=== PATIENT | female | born 1940 | race Caucasian/White ===

== ENCOUNTER → 2020-02-28 10:14 | Outpatient (BNVA) | payer MEDICARE, OTHER, SELFPAY | PROVIDERS: PCP Internal Medicine; Visit Provider Internal Medicine | DX: J30.9 Allergic rhinitis, unspecified (principal); J44.9 Chronic obstructive pulmonary disease, unspecified | CPT/HCPCS: 99212 ==

== ENCOUNTER 2020-04-08 05:59 | Outpatient (REF) | payer MEDICARE, OTHER, SELFPAY ==
[2020-04-08 07:09] LABS: MANUAL DIFF FLAG NO
[2020-04-08 07:14] LABS: Basophils Absolute Auto 0.1 X10*3/uL (0.0-0.2); Basophils Percent Auto 0.7 % (0-2); Eosinophils Absolute Auto 0.4 X10*3/uL (0.0-0.4); Eosinophils Percent Auto 5.1 % (0-4); Hematocrit 38.2 % (37-47); Hemoglobin 12.2 g/dl (12.0-16.0); Imm Gran Abs Auto 0.06 X10*3/uL (0.00-0.03); Imm Gran Pct Auto 0.8 % (0.0-0.4); Lymphocytes Absolute Auto 2.6 X10*3/uL (1.2-4.9); Lymphocytes Percent Auto 33.6 % (20-40); Mean Corpuscular HGB Conc 31.9 g/dl (31.0-35.0); Mean Corpuscular Hemoglobin 31.1 pg (27.0-33.0); Mean Corpuscular Volume 97.4 fL (80-98); Monocytes Absolute Auto 0.6 X10*3/uL (0.1-1.2); Monocytes Percent Auto 7.7 % (2-11); Neutrophils Percent Auto 52.1 % (45-73); Platelet Count 304 X10*3/uL (160-400); Red Blood Count 3.92 X10*6/uL (4.20-5.50); White Blood Count 7.7 X10*3/uL (4.8-10.8)
[2020-04-08 07:21] LABS: Estimated Average Glucose 114 mg/dL; Hemoglobin A1c % 5.6 %
[2020-04-08 07:36] LABS: Alanine Aminotransferase 20 U/L (0-31); Anion Gap 14 (12-20); Aspartate Amino Transferase 16 U/L (5-31); Blood Urea Nitrogen 24 mg/dL (9-16); Calcium 9.5 mg/dL (8.4-10.2); Carbon Dioxide 26 mmol/L (22-29); Chloride 104 mmol/L (96-108); Cholesterol 177 mg/dL; Estimated Glomerular Filt Rate 57; Glucose Fasting 106 mg/dL (60-99); HDL Cholesterol 75 mg/dL; LDL Cholesterol Calculated 82 mg/dl; Potassium 5.2 mmol/l (3.3-5.1); Sodium 139 mmol/L (135-145); Triglycerides 103 mg/dL
[2020-04-08 07:58] LABS: Free T4 (Free Thyroxine) 1.09 ng/dL (0.71-1.85); Thyroid Stimulating Hormone 1.18 uIU/mL (0.32-4.0); Vitamin D 25-OH Total 44.7 ng/mL (>30)
[2020-04-08 08:03] LABS: Creatinine Urine 69.86 mg/dL; Microalbum/Creatinine Ratio Ur 11.4 ug/mg cr
== END 2020-04-08 06:00 | disposition home or self-care (01) ==
LOC: HO.LAB 05:59
PROVIDERS: Visit Provider Internal Medicine
DX: I10 Essential (primary) hypertension (principal); E78.5 Hyperlipidemia, unspecified; E11.9 Type 2 diabetes mellitus without complications; E66.09 Other obesity due to excess calories; Z78.0 Asymptomatic menopausal state
CPT/HCPCS: 36415; 80048; 80061; 82043; 82306; 83036; 84439; 84443; 84450; 84460; 85025

== ENCOUNTER 2020-06-14 08:20 | Outpatient (REF) | payer MEDICARE, OTHER, SELFPAY ==
--- NOTE | ~2020-06-14 | MM_ITS ---
EXAMINATION: BONE DENSITOMETRY CLINICAL INDICATION: Menopause. COMPARISON: Previous BD dated 02/15/2018 and baseline BD dated 08/24/2007. TECHNIQUE: Using a [employer]kStart DXA System (software version: 13.1) manufactured by [employer], dual-energy x-ray absorptiometry was performed of the lumbar spine and left hip. The images are of good technical quality. Summary results are attached. FINDINGS: AP SPINE L1-L4: Current: BMD 1.155 g/cm2, Z-score 1.1, T-score -0.2, normal, 0.8% increase from previous, 6.0% increase from baseline (<5% change is not significant). Prior: BMD 1.146 g/cm2. Baseline: BMD 1.090 g/cm2. LEFT FEMUR, NECK: Current: BMD 0.878 g/cm2, Z-score 0.6, T-score -1.2, osteopenia. Prior: BMD 0.906 g/cm2. Baseline: BMD 0.909 g/cm2. LEFT FEMUR, TOTAL: Current: BMD 1.046 g/cm2, Z-score 1.9, T-score 0.3, normal, 1.4% decrease from previous, 3.0% decrease from baseline (<5% change is not significant). Prior: BMD 1.061 g/cm2. Baseline: BMD 1.078 g/cm2. IDENTIFIED RISK FACTORS: Glucocorticoids (chronic), renal, menopause. HISTORY OF FRACTURE: None listed. MEDICATIONS: Vitamin D. MM/XR DEXA axial skeleton IMPRESSION: 1. DIAGNOSIS: Osteopenia based on the lowest T-score value of -1.2 in the femoral neck applying World Health Organization criteria. 2. 10-YEAR FRACTURE RISK PREDICTION, FRAX: Major osteoporotic fracture (clinical spine, forearm, hip or shoulder) 17.0%. Hip fracture 3.8%. 3. Treatment Recommendations: NOF guidelines recommend consideration for treatment in postmenopausal women and men age 50 and older presenting with the following: -A hip or vertebral (clinical or morphometric) fracture. -T-score less than or equal to -2.5 at the femoral neck or spine after appropriate evaluation to exclude secondary causes. -Low bone mass at the hip or spine and a 10-year fracture probability by FRAX of greater than or equal to 3% for hip fracture or greater than or equal to 20% for major osteoporotic fracture based on the [place] adapted WHO algorithm. 4. Other Recommendations: All treatment decisions require clinical judgment and consideration of individual patient factors, including patient preferences, comorbidities, previous drug use, risk factors not captured in the FRAX model (e.g. frailty, falls, vitamin D deficiency, increased bone turnover, interval significant decline in bone density) and possible under or overestimation of fracture risk by FRAX. Additional medical evaluation for secondary cause of low bone mineral density may be appropriate. FUTURE SCAN RECOMMENDATION: People with diagnosed cases of osteoporosis or at high risk for fracture should have regular bone mineral density tests. For patients eligible for Medicare, routine testing is allowed once every 2 years. The testing frequency can be increased to one year for patients who have rapidly progressing disease, those who are receiving or discontinuing medical therapy to restore bone mass, or have additional risk factors.
--- NOTE | ~2020-06-14 | MM_ITS ---
EXAMINATION: MM SCREENING DIGITAL BREAST TOMOSYNTHESIS, BILATERAL CLINICAL INFORMATION: Screening. Asymptomatic. The lifetime risk of breast cancer based on the Tyrer-Cuzick Model is 6.0%. COMPARISON: Mammography: March 28, 2019 and studies dating back to September 21, 2011 TECHNIQUE: Digital breast tomosynthesis is performed in both the craniocaudal and mediolateral oblique views along with computer-aided detection (CAD). Synthesized 2D images are generated from the tomosynthesis. FINDINGS: The breasts are heterogeneously dense, which may obscure small masses (ACR BI-RADS breast composition Category c). There are no significant masses, abnormal calcifications, or other abnormalities. MM/MM tomosynthesis screening BI IMPRESSION: There are no significant changes from prior study. ASSESSMENT: BI-RADS 1: Negative RECOMMENDATION: Routine annual mammography screening. This patient's information was entered into a reminder system with a target due date for their next mammogram.
== END 2020-06-14 08:21 | disposition home or self-care (01) ==
LOC: HO.MAMMO 08:20
PROVIDERS: PCP Internal Medicine; Visit Provider Internal Medicine
DX: Z13.820 Encounter for screening for osteoporosis (principal); Z78.0 Asymptomatic menopausal state; Z12.31 Encounter for screening mammogram for malignant neoplasm of breast
CPT/HCPCS: 77063; 77067; 77080

== ENCOUNTER → 2020-08-29 10:19 | Outpatient (BNVA) | payer MEDICARE, OTHER, SELFPAY | PROVIDERS: PCP Internal Medicine; Visit Provider Internal Medicine | DX: J44.9 Chronic obstructive pulmonary disease, unspecified (principal); J30.9 Allergic rhinitis, unspecified | CPT/HCPCS: 99212 ==

== ENCOUNTER 2021-02-19 06:53 | Outpatient (REF) | payer MEDICARE, OTHER, SELFPAY ==
[2021-02-19 07:31] LABS: Estimated Average Glucose 117 mg/dL; Hemoglobin A1c % 5.7 %
[2021-02-19 07:45] LABS: Alanine Aminotransferase 20 U/L (0-31); Anion Gap 15 (12-20); Aspartate Amino Transferase 19 U/L (5-31); Blood Urea Nitrogen 24 mg/dL (9-16); Calcium 10.2 mg/dL (8.4-10.2); Carbon Dioxide 26 mmol/L (22-29); Chloride 107 mmol/L (96-108); Cholesterol 177 mg/dL; Estimated Glomerular Filt Rate 47; Glucose Fasting 108 mg/dL (60-99); HDL Cholesterol 75 mg/dL; LDL Cholesterol Calculated 86 mg/dl; Potassium 5.6 mmol/L (3.3-5.1); Sodium 142 mmol/L (135-145); Triglycerides 82 mg/dL
[2021-02-19 07:51] LABS: Hemoglobin A1C 151.2026 umol/L
[2021-02-19 08:06] LABS: Free T4 (Free Thyroxine) 1.26 ng/dL (0.71-1.85); Thyroid Stimulating Hormone 0.72 uIU/mL (0.32-4.0); Vitamin D 25-OH Total 47.7 ng/mL (>30)
== END 2021-02-19 06:54 | disposition home or self-care (01) ==
LOC: HO.LAB 06:53
PROVIDERS: PCP Internal Medicine; Visit Provider Internal Medicine
DX: E03.9 Hypothyroidism, unspecified (principal); E11.9 Type 2 diabetes mellitus without complications; E78.5 Hyperlipidemia, unspecified; I10 Essential (primary) hypertension; Z78.0 Asymptomatic menopausal state
CPT/HCPCS: 36415; 80048; 80061; 82306; 83036; 84439; 84443; 84450; 84460

== ENCOUNTER → 2021-02-27 09:28 | Outpatient (BNVA) | payer MEDICARE, OTHER, SELFPAY | PROVIDERS: PCP Internal Medicine; Visit Provider Internal Medicine | DX: J44.9 Chronic obstructive pulmonary disease, unspecified (principal); J30.9 Allergic rhinitis, unspecified | CPT/HCPCS: 99212 ==

== ENCOUNTER 2021-04-04 09:55 | Outpatient (REF) | payer MEDICARE, OTHER, SELFPAY ==
--- NOTE | 2021-04-04 17:06 | PFT_ITS ---
INDICATION: COPD. SPIROMETRY: FEV1 to FVC 62% with an FEV1 of 1.22 L which is 70% predicted and FVC 1.95 L, which is 82% predicted. No significant response to bronchodilators noted. Maximum voluntary ventilation 62% predicted. LUNG VOLUMES: Total lung capacity 86% predicted with an expiratory reserve volume of 13% predicted. DIFFUSION CAPACITY: DLCO 55% predicted. COMPARISONS: None available. INTERPRETATION: There is an obstructive ventilatory defect consistent with moderate COPD. The patient did not have a significant response to bronchodilators noted. There is a mild decrease in maximum voluntary ventilation secondary to likely deconditioning. Lung volumes are low normal with a decrease in the expiratory reserve volume secondary to an elevated BMI. The patient does have a moderate diffusion impairment likely secondary to emphysema and other parenchymal lung conditions or pulmonary vascular conditions should be considered. Clinical correlation warranted. MD SRIDHAR Yi/NASEEM / [id number]
== END 2021-04-04 09:56 | disposition home or self-care (01) ==
LOC: HO.RESP 09:55
PROVIDERS: PCP Internal Medicine; Visit Provider Internal Medicine
DX: J44.9 Chronic obstructive pulmonary disease, unspecified (principal); J30.9 Allergic rhinitis, unspecified
CPT/HCPCS: 94060; 94727; 94729

== ENCOUNTER 2021-06-13 14:00 | Outpatient (RCR) | payer MEDICARE, OTHER, SELFPAY ==
[2021-04-02 13:06] VITALS: BP 139/65; PULSE 65
--- NOTE | 2021-04-02 14:24 | MHC.PT.EP ---
[facility] [place] Office [place] Office [place] Office [address] [phone] F: [phone] F: [phone] F: [phone] F: [phone] Physical Therapy Plan of Care Date of Evaluation: Date of Surgery: NA Diagnosis: Unsteadiness of feet Assessment: Roxane is a 80 year old female who is referred to PT for unsteadiness on feet . She report of feeling extremely unsteady while going down stairs due to difficulty perceiving the depth of the stairs. Pt reports of having this for over 10 years however it has gotten worse over the last year following a fall on her buttock while she was going down to the cellar. On PT examination she presented TTP over R SI, constant pain in R SI which gets worse with prolonged sitting, standing and walking, decreased hip muscle strength, altered pelvic symmetry and convergence. Due to these impairments she has difficulty with negotiating stairs and maintaining static postures. She would benefit from skilled PT to address the aforementioned impairments and improve tolerance to functional activities. Frequency and Duration: The patient will be seen 1/week for 5 weeks Short Term Goals: 1. Pt will have 50% decrease in pain which will enable her to sit, and stand for more than 30 minutes in 2 weeks. 2. Pt will be able to move trunk through all planes of motion without pain which will help her perform all ADLS without pain in 3 weeks Hr Internship Goals: 1. Pt will demonstrate an improvement in convergence distance by 10cm so as to enable pt go down stairs without fear of LOB in 5 weeks. 2. Pt will be independent with HEP for symptom management and maintenance following d/c in 5 weeks Treatment Plan: Modalities to reduce pain, spasms and effusion. Manual therapy to restore motion and function. Therapeutic exercise to improve strength and flexibility. Neuromuscular re-education for posture and balance. Therapeutic activities to return to functional activities of daily living. Electronically signed by: Melissa Chand PT DPT Please sign and return to therapist. Thank you for your referral.
--- NOTE | 2021-06-13 15:02 | MHC.PT.DC ---
[facility] [place] Office [place] Office [place] Office [address] [place] [address] [phone] F: [phone] F: [phone] F: [phone] F: [phone] Physical Therapy Discharge Report Diagnosis: Unsteadiness of feet Date of Surgery: NA Date of Evaluation: 04/02/21 Date of Discharge: 06/13/21 Treatments to Date: 8 Cancellations to Date: 1 No Shows to Date: 0 Discharge Status: Achieved Goals Improved Function Independent with HEP Discharge Summary: Roxane is completed 8 PT visits and has improved significantly. She is independent with HEPs. She is therefore being d/c from PT today. Electronically signed by: Melissa Chand PT DPT Please sign and return to therapist. Thank you for your referral.
== END 2021-06-13 15:03 | disposition home or self-care (01) ==
LOC: HO.PT 14:00
PROVIDERS: PCP Internal Medicine; Visit Provider Internal Medicine
DX: R26.81 Unsteadiness on feet (principal)
CPT/HCPCS: 97110; 97112; 97140; 97161; 97530

== ENCOUNTER 2021-06-16 10:26 | Outpatient (REF) | payer MEDICARE, OTHER, SELFPAY ==
--- NOTE | ~2021-06-16 | MM_ITS ---
EXAMINATION: MM SCREENING DIGITAL BREAST TOMOSYNTHESIS, BILATERAL CLINICAL INFORMATION: Screening. Asymptomatic. Family history breast cancer, daughter. The lifetime risk of breast cancer based on the Tyrer-Cuzick Model is 5%. COMPARISON: Mammography: 06/14/2020, 03/28/2019, 02/15/2018 TECHNIQUE: Digital breast tomosynthesis is performed in both the craniocaudal and mediolateral oblique views along with computer-aided detection (CAD). Synthesized 2D images are generated from the tomosynthesis. FINDINGS: There are scattered areas of fibroglandular density (ACR BI-RADS breast composition Category b). There is fine fibronodular parenchymal pattern with some minor asymmetries similar to prior studies. There is no developing density or interval mass or architectural abnormality. Regional ductal secretory and round calcifications medial right breast are again noted. The axilla and skin contours are unremarkable. No significant changes. MM/MM tomosynthesis screening BI IMPRESSION: No mammographic evidence of malignancy. ASSESSMENT: BI-RADS 2: Benign RECOMMENDATION: Routine annual mammography screening. This patient's information was entered into a reminder system with a target due date for their next mammogram.
== END 2021-06-16 10:27 | disposition home or self-care (01) ==
LOC: HO.MAMMO 10:26
PROVIDERS: Visit Provider Internal Medicine
DX: Z12.31 Encounter for screening mammogram for malignant neoplasm of breast (principal)
CPT/HCPCS: 77063; 77067

== ENCOUNTER 2021-06-24 06:12 | Outpatient (REF) | payer MEDICARE, OTHER, SELFPAY ==
[2021-06-24 08:04] LABS: Estimated Average Glucose 111 mg/dL; Hemoglobin A1c % 5.5 %
[2021-06-24 08:06] LABS: Alanine Aminotransferase 17 U/L (0-31); Anion Gap 12 (12-20); Aspartate Amino Transferase 15 U/L (5-31); Blood Urea Nitrogen 26 mg/dL (9-16); Carbon Dioxide 24 mmol/L (22-29); Chloride 110 mmol/L (96-108); Cholesterol 154 mg/dL; Estimated Glomerular Filt Rate 55; Glucose Fasting 99 mg/dL (60-99); HDL Cholesterol 55 mg/dL; LDL Cholesterol Calculated 82 mg/dl; Potassium 5.2 mmol/L (3.3-5.1); Sodium 141 mmol/L (135-145); Triglycerides 85 mg/dL
[2021-06-24 08:28] LABS: Free T4 (Free Thyroxine) 1.22 ng/dL (0.71-1.85); Thyroid Stimulating Hormone 0.53 uIU/mL (0.32-4.0); Vitamin D 25-OH Total 43.6 ng/mL (>30)
[2021-06-24 08:48] LABS: Creatinine Urine 63.14 mg/dL; Microalbum/Creatinine Ratio Ur 7.9 ug/mg cr
== END 2021-06-24 06:13 | disposition home or self-care (01) ==
LOC: HO.LAB 06:12
PROVIDERS: PCP Internal Medicine; Visit Provider Internal Medicine
DX: E78.5 Hyperlipidemia, unspecified (principal); E03.9 Hypothyroidism, unspecified; I10 Essential (primary) hypertension; E11.9 Type 2 diabetes mellitus without complications
CPT/HCPCS: 36415; 80048; 80061; 82043; 82306; 83036; 84439; 84443; 84450; 84460

== ENCOUNTER → 2021-06-26 09:31 | Outpatient (BNVA) | payer MEDICARE, OTHER, SELFPAY | PROVIDERS: PCP Internal Medicine; Visit Provider Internal Medicine | DX: J44.9 Chronic obstructive pulmonary disease, unspecified (principal); I10 Essential (primary) hypertension; E11.9 Type 2 diabetes mellitus without complications; E03.9 Hypothyroidism, unspecified; L30.4 Erythema intertrigo; T78.49XA Other allergy, initial encounter; Z88.3 Allergy status to other anti-infective agents; Z91.030 Bee allergy status; Z79.84 Long term (current) use of oral hypoglycemic drugs; Z79.899 Other long term (current) drug therapy | CPT/HCPCS: 99212 ==

== ENCOUNTER → 2021-10-08 08:53 | Outpatient (BNVA) | payer MEDICARE, OTHER, SELFPAY | PROVIDERS: PCP Internal Medicine; Visit Provider Internal Medicine | DX: J30.9 Allergic rhinitis, unspecified (principal); J44.9 Chronic obstructive pulmonary disease, unspecified; I10 Essential (primary) hypertension; E11.9 Type 2 diabetes mellitus without complications; Z79.899 Other long term (current) drug therapy | CPT/HCPCS: 99212 ==

== ENCOUNTER 2021-10-13 06:27 | Day surgery (SDC) | payer MEDICARE, OTHER, SELFPAY ==
[2021-10-06 16:02] VITALS: BMI 31.4
--- NOTE | 2021-10-09 10:12 | MHC.SHP ---
Pre-Procedural Eval Section A Date of Service: 10/09/21 The patient is an INPATIENT: No Changes since office visit: No Cold of Flu in the past 2 weeks, No New Medical Problems, No Changes in Medication and No Patient answered all questions The History & Physical has been completed within 30 days and I have reviewed it.: Yes Section B Chief Complaint: cataract Allergies: Allergies Allergy/AdvReac Type Severity Reaction Status Date / Time levofloxacin [Levaquin] AdvReac Unknown achilles Verified 10/08/21 09:19 tendon issue bee stings Allergy Unknown anaphylaxis Uncoded 10/08/21 09:19 stainless steel Allergy Unknown severe Uncoded 10/08/21 09:19 Derm reaction chlorine AdvReac Difficulty Uncoded 10/08/21 09:19 Breathing Plan Diagnosis/Plan: Unchanged I have reviewed the history and physical and performed a pertinent physical examination on my patient. No changes have occurred unless specified.
--- NOTE | 2021-10-10 09:02 | P.CONAN_ITS ---
Documented by User: Keila Johnson NP 10/10/21 09:03 HPI - Anesthesia Eval Consult details Narrative: 81yo F for Left Cataract Extraction IOL Insertion PCP cleared No prev cataract on record [facility] Active Problems Active Problems: All Active Problems (Updated 06/26/21 @ 10:11 by Anam Gibson MD) Tubular adenoma of colon (Acute) Gait instability (Acute) Pruritic intertrigo (Acute) Dyslipidemia (Acute) Acquired hypothyroidism (Acute) Essential hypertension (Acute) Type 2 diabetes mellitus without complication, without long-term current use of insulin (Acute) COPD (chronic obstructive pulmonary disease) (Acute) Allergic rhinitis (Acute) Past Medical History Medical History Acquired hypothyroidism Allergic rhinitis COPD (chronic obstructive pulmonary disease) Dyslipidemia Essential hypertension Gait instability Pruritic intertrigo Tubular adenoma of colon Type 2 diabetes mellitus without complication, without long-term current use of insulin Family History Family History Father Cancer of prostate Mother COPD (chronic obstructive pulmonary disease) Polio Smoker Daughter Breast cancer Paternal Grandmother No problems noted. Brother No problems noted. Sister No problems noted. Sister No problems noted. Sister No problems noted. Son No problems noted. Daughter No problems noted. Surgical History Surgical History (Updated 10/06/21 @ 16:01 by Christie Rey RN) History of basal cell carcinoma excision History of colonoscopy Social History Social History Housing: House Are you a primary life care planner to a significant other at home: No Do you presently have visiting nurse or other home services: No Alcohol intake: current Patient Tobacco Use Status: Never used Tobacco e-Cigarette/Vaping Use: Never Used Use of substances other than those prescribed or required for medical reasons: No Have you been hit, kicked, punched, or otherwise hurt by someone within the past year? If so, by whom?: No Are you DNR?: No Advance Directives: No Advance Directives Information Provided: Yes Advance Directives on File: No Recently lost weight without trying: No Eating poorly because of decreased appetite: No Nutrition Risks: No Nutritional Risk Patient : No : No service: No Current occupational status: retired Cognitive needs: No Hearing needs: No Vision needs: No Meds Allergies Allergy/AdvReac Type Severity Reaction Status Date / Time levofloxacin [Levaquin] AdvReac Unknown achilles Verified 10/08/21 09:19 tendon issue bee stings Allergy Unknown anaphylaxis Uncoded 10/08/21 09:19 stainless steel Allergy Unknown severe Uncoded 10/08/21 09:19 Derm reaction chlorine AdvReac Difficulty Uncoded 10/08/21 09:19 Breathing Home Medications Medication Instructions Recorded Confirmed Last Taken Type flaxseed oil 1,000 mg capsule 1,000 mg PO BID 02/28/20 10/06/21 Unknown History omega 8-uvb-fdh-fish oil 300 1 cap PO DAILY 02/28/20 10/06/21 10/12/21 History mg-1,000 mg capsule (Fish Oil) psyllium husk 3.4 gram/5.4 gram 1 tbsp PO DAILY 02/28/20 10/06/21 Unknown History oral powder (Metamucil) cholecalciferol (vitamin D3) 50 50 mcg PO DAILY 04/15/20 10/06/21 Unknown History mcg (2,000 unit) capsule glucosamine sulfate 1,000 mg tablet 1,000 mg PO BID 04/15/20 10/06/21 Unknown History biotin 800 mcg tablet 800 mcg PO DAILY 02/27/21 10/06/21 Unknown History cetirizine 10 mg tablet (Zyrtec) 10 mg PO DAILY 02/27/21 10/06/21 Unknown History nystatin 100,000 unit/mL oral 1 ml PO TID PRN thrush 02/27/21 10/06/21 Unknown History suspension nystatin-triamcinolone 100,000 1 appl topical DAILY PRN Rash 02/27/21 10/06/21 Unknown History unit/g-0.1 % topical cream aspirin 325 mg tablet 325 mg PO DAILY 10/06/21 10/06/21 10/13/21 History irbesartan 150 mg tablet 150 mg PO BEDTIME 10/06/21 10/06/21 Unknown History Exam Exam Date and Time: October 10, 2021 09 Height,Weight and Vital Signs: Height 5 ft 1.5 in Weight 76.839 kg Pertinent Lab Results Pertinent Lab Results: Laboratory Tests 06/24/21 06:38 Sodium 141 Potassium 5.2 H Chloride 110 H Carbon Dioxide 24 BUN 26 H Creatinine 0.98 Assessment and Plan Assessment Anesthesia Assessment: Chart Reviewed Documented by User: Heidi Colin MD 10/13/21 08:52 [facility] Past Medical History Medical History Acquired hypothyroidism Allergic rhinitis COPD (chronic obstructive pulmonary disease) Dyslipidemia Essential hypertension Gait instability Pruritic intertrigo Tubular adenoma of colon Type 2 diabetes mellitus without complication, without long-term current use of insulin Family History Family History Father Cancer of prostate Mother COPD (chronic obstructive pulmonary disease) Polio Smoker Daughter Breast cancer Paternal Grandmother No problems noted. Brother No problems noted. Sister No problems noted. Sister No problems noted. Sister No problems noted. Son No problems noted. Daughter No problems noted. Family history of problems with anesthesia: No Surgical History Surgical History (Updated 10/06/21 @ 16:01 by Christie Rey, GISELE) History of basal cell carcinoma excision History of colonoscopy History of Problems with Anesthesia: No Social History Social History Housing: House Are you a primary life care planner to a significant other at home: No Do you presently have visiting nurse or other home services: No Alcohol intake: current Patient Tobacco Use Status: Never used Tobacco e-Cigarette/Vaping Use: Never Used Use of substances other than those prescribed or required for medical reasons: No Have you been hit, kicked, punched, or otherwise hurt by someone within the past year? If so, by whom?: No Are you DNR?: No Advance Directives: No Advance Directives Information Provided: Yes Advance Directives on File: No Recently lost weight without trying: No Eating poorly because of decreased appetite: No Nutrition Risks: No Nutritional Risk Patient : No : No service: No Current occupational status: retired Cognitive needs: No Hearing needs: No Vision needs: No Meds Allergies Allergy/AdvReac Type Severity Reaction Status Date / Time levofloxacin [Levaquin] AdvReac Unknown achilles Verified 10/08/21 09:19 tendon issue bee stings Allergy Unknown anaphylaxis Uncoded 10/08/21 09:19 stainless steel Allergy Unknown severe Uncoded 10/08/21 09:19 Derm reaction chlorine AdvReac Difficulty Uncoded 10/08/21 09:19 Breathing Home Medications Medication Instructions Recorded Confirmed Last Taken Type flaxseed oil 1,000 mg capsule 1,000 mg PO BID 02/28/20 10/06/21 Unknown History omega 7-iww-fef-fish oil 300 1 cap PO DAILY 02/28/20 10/06/21 10/12/21 History mg-1,000 mg capsule (Fish Oil) psyllium husk 3.4 gram/5.4 gram 1 tbsp PO DAILY 02/28/20 10/06/21 Unknown History oral powder (Metamucil) cholecalciferol (vitamin D3) 50 50 mcg PO DAILY 04/15/20 10/06/21 Unknown History mcg (2,000 unit) capsule glucosamine sulfate 1,000 mg tablet 1,000 mg PO BID 04/15/20 10/06/21 Unknown History biotin 800 mcg tablet 800 mcg PO DAILY 02/27/21 10/06/21 Unknown History cetirizine 10 mg tablet (Zyrtec) 10 mg PO DAILY 02/27/21 10/06/21 Unknown History nystatin 100,000 unit/mL oral 1 ml PO TID PRN thrush 02/27/21 10/06/21 Unknown History suspension nystatin-triamcinolone 100,000 1 appl topical DAILY PRN Rash 02/27/21 10/06/21 Unknown History unit/g-0.1 % topical cream aspirin 325 mg tablet 325 mg PO DAILY 10/06/21 10/06/21 10/13/21 History irbesartan 150 mg tablet 150 mg PO BEDTIME 10/06/21 10/06/21 Unknown History Exam Height,Weight and Vital Signs: Height 5 ft 1.5 in Weight 76.839 kg Vital Signs Temp Pulse Resp BP Pulse Ox O2 Del Method 97 F 58 19 167/64 H 94 10/13/21 07:11 10/13/21 07:11 10/13/21 07:11 10/13/21 07:11 10/13/21 07:11 10/13/21 07:11 Pertinent Lab Results Pertinent Lab Results: Laboratory Tests 06/24/21 06:38 Sodium 141 Potassium 5.2 H Chloride 110 H Carbon Dioxide 24 BUN 26 H Creatinine 0.98 Lab Results 10/13/21 Range/Units 06:56 POC Glucose 100 (60-115) mg/dL Airway Mallampati Class: III (Small mouth opening, overlapping teeth) TM Dist: >3cm Neck ROM: Full Partial: Lower Heart: RRR Lungs: CTAB Assessment and Plan Assessment Anesthesia Assessment: Anesthesia Plan Discussed Final Anesthetic Review Family History of Problems with Anesthesia: No History of Problems with Anesthesia: No NPO: Yes ASA Class: III Final Preanesthetic Review: No Changes in Pt Med Stat, Meds/Allgs Chart Reviewed, Consent Obtained/Reviewed and Anes Risks/Benef Reviewed Patient Risk: Intermediate Procedure Risk: Low Assessment/Block/Sedation in SS: Assess/Block/Sedation-SS Anesthetic Plan Anesthetic Plan: MAC: Disposition: Standard PACU
[2021-10-13 07:00] LABS: Glucose, Whole Blood 100 mg/dL (60-115)
[2021-10-13 07:11] VITALS: BP 167/64; PULSE 58; RESP 19; TEMP 36.1; O2SAT 94
[2021-10-13] MEDS: Tetracaine HCl/PF 0.5% Oph Sol 4 ML DROPS 1 DROP EYE-LEFT (07:14)
[2021-10-13] MEDS: Lactated Ringers 500 ML 50 ML IV (07:14)
[2021-10-13] MEDS: Tropicamide 1 % Ophth Sol 3 ML BTL 1 DROP EYE-LEFT ×3 (07:14→07:17)
[2021-10-13] MEDS: Phenylephrine HCL 2.5% Oph SoL 2 ML BOTTLE 1 DROP EYE-LEFT ×3 (07:15→07:17)
[2021-10-13] MEDS: Cyclopentolate 1 % Ophth Sol 2 ML DRPBTL 1 DROP EYE-LEFT ×3 (07:15→07:16)
--- NOTE | 2021-10-13 08:19 | HO.PNOPHT ---
Ophthalmology Procedure Procedure Date of Service: 10/13/21 Ophthalmology Viscoelastic: Healconrado Skinnert Dual Pack Pro Ophthalmology Lenses: TECJUNIOR [id number] (22) Procedure Notes: PREOPERATIVE DIAGNOSIS: Decreased visual acuity left eye secondary to cataract POSTOPERATIVE DIAGNOSIS: Same PROCEDURE: Left cataract extraction with intraocular lens insertion SURGEON: Jaime Alberts M.D. ANESTHESIA: Topical/MAC ESTIMATED BLOOD LOSS: None COMPLICATIONS: None After obtaining informed consent, the patient was brought to the operation room suite and placed in the supine position. After adequate sedation per anesthesia, topical drops of Tetracaine were given to the left eye. The eye was then prepped and draped in the usual sterile fashion. The operating room microscope was then positioned over the operative eye and a lid speculum placed. A paracentesis was created. Viscoelastic was then instilled into the anterior chamber. A three plane incision was then created temporally, utilizing a 2.85 mm keratome. Capsulotomy forceps were then utilized to create a circular tear capsulotomy. Hydrodissection and hydrodelineation were carried out until adequate mobilization of the nucleus occurred. Phacoemulsification was then utilized to remove the dense central nucleus followed by removal of the cortical material utilizing the automated aspiration irrigation unit. Viscoat elastic was instilled into the posterior capsular bag followed by placement of a posterior chamber intraocular lens without difficulty. The residual Viscoat elastic was then removed utilizing the automated IA machine. The wound was check and found to be watertight. The patient tolerated the procedure well and the lid speculum was removed. Intracameral injection of Vigamox 0.1 mL followed by a subtenon injection of Kenalog-40 0.2 mL were administered. The patient will be seen in the a.m.
[2021-10-13 08:49] VITALS: BP 135/43; PULSE 59; RESP 16; TEMP 36.8; O2SAT 97
== END 2021-10-13 08:59 | disposition home or self-care (01) ==
PROVIDERS: PCP Internal Medicine; Visit Provider Ophthalmology
PROC: (CPT 66985; principal; 2021-10-13 08:20)
DX: H25.12 Age-related nuclear cataract, left eye (principal); H52.4 Presbyopia; E03.9 Hypothyroidism, unspecified; J44.9 Chronic obstructive pulmonary disease, unspecified; I10 Essential (primary) hypertension; E78.00 Pure hypercholesterolemia, unspecified; H35.033 Hypertensive retinopathy, bilateral; Z79.84 Long term (current) use of oral hypoglycemic drugs; Z79.51 Long term (current) use of inhaled steroids; Z79.82 Long term (current) use of aspirin; Z79.899 Other long term (current) drug therapy; Z88.1 Allergy status to other antibiotic agents; Z87.891 Personal history of nicotine dependence
CPT/HCPCS: 66984; 82947; J2250; J3010; J3300; V2632

== ENCOUNTER 2021-11-03 06:08 | Day surgery (SDC) | payer MEDICARE, OTHER, SELFPAY ==
[2021-10-06 16:06] VITALS: BMI 31.4
--- NOTE | 2021-10-31 12:54 | HO.ANESPROP2 ---
Documented by User: Keila Johnson NP 10/31/21 12:55 HPI - Anesthesia Eval Consult details Narrative: 81yo F for Right Cataract Extraction IOL Insertion PCP cleared Left eye 10/13/ with TIVA: Fent 50, Midaz 1 PMFSH Active Problems Active Problems: All Active Problems (Updated 06/26/21 @ 10:11 by Anam Gibson MD) Tubular adenoma of colon (Acute) Gait instability (Acute) Pruritic intertrigo (Acute) Dyslipidemia (Acute) Acquired hypothyroidism (Acute) Essential hypertension (Acute) Type 2 diabetes mellitus without complication, without long-term current use of insulin (Acute) COPD (chronic obstructive pulmonary disease) (Acute) Allergic rhinitis (Acute) Past Medical History Medical History Acquired hypothyroidism Allergic rhinitis COPD (chronic obstructive pulmonary disease) Dyslipidemia Essential hypertension Gait instability Pruritic intertrigo Tubular adenoma of colon Type 2 diabetes mellitus without complication, without long-term current use of insulin Family History Family History Father Cancer of prostate Mother COPD (chronic obstructive pulmonary disease) Polio Smoker Daughter Breast cancer Paternal Grandmother No problems noted. Brother No problems noted. Sister No problems noted. Sister No problems noted. Sister No problems noted. Son No problems noted. Daughter No problems noted. Family history of problems with anesthesia: No Surgical History Surgical History History of basal cell carcinoma excision History of colonoscopy Hx of right cataract extraction History of Problems with Anesthesia: No Social History Social History Housing: House Are you a primary pharmacist critical care to a significant other at home: No Do you presently have visiting nurse or other home services: No Alcohol intake: current Patient Tobacco Use Status: Never used Tobacco e-Cigarette/Vaping Use: Never Used Use of substances other than those prescribed or required for medical reasons: No Have you been hit, kicked, punched, or otherwise hurt by someone within the past year? If so, by whom?: No Are you DNR?: No Advance Directives: No Advance Directives Information Provided: Yes Advance Directives on File: No Recently lost weight without trying: No Eating poorly because of decreased appetite: No Nutrition Risks: No Nutritional Risk Patient : No : No service: No Current occupational status: retired Cognitive needs: No Hearing needs: No Vision needs: No Meds Allergies Allergy/AdvReac Type Severity Reaction Status Date / Time levofloxacin [Levaquin] AdvReac Unknown achilles Verified 10/08/21 09:19 tendon issue bee stings Allergy Unknown anaphylaxis Uncoded 10/08/21 09:19 stainless steel Allergy Unknown severe Uncoded 10/08/21 09:19 Derm reaction chlorine AdvReac Difficulty Uncoded 10/08/21 09:19 Breathing Home Medications Medication Instructions Recorded Confirmed Last Taken Type flaxseed oil 1,000 mg capsule 1,000 mg PO BID 02/28/20 10/06/21 Unknown History omega 5-ize-wvg-fish oil 300 1 cap PO DAILY 02/28/20 10/06/21 10/12/21 History mg-1,000 mg capsule (Fish Oil) psyllium husk 3.4 gram/5.4 gram 1 tbsp PO DAILY 02/28/20 10/06/21 Unknown History oral powder (Metamucil) cholecalciferol (vitamin D3) 50 50 mcg PO DAILY 04/15/20 10/06/21 Unknown History mcg (2,000 unit) capsule glucosamine sulfate 1,000 mg tablet 1,000 mg PO BID 04/15/20 10/06/21 Unknown History biotin 800 mcg tablet 800 mcg PO DAILY 02/27/21 10/06/21 Unknown History cetirizine 10 mg tablet (Zyrtec) 10 mg PO DAILY 02/27/21 10/06/21 Unknown History nystatin 100,000 unit/mL oral 1 ml PO TID PRN thrush 02/27/21 10/06/21 Unknown History suspension nystatin-triamcinolone 100,000 1 appl topical DAILY PRN Rash 02/27/21 10/06/21 Unknown History unit/g-0.1 % topical cream aspirin 325 mg tablet 325 mg PO DAILY 10/06/21 10/06/21 10/29/21 History irbesartan 150 mg tablet 150 mg PO BEDTIME 10/06/21 10/06/21 Unknown History Exam Exam Date and Time: October 31, 2021 1254 Height,Weight and Vital Signs: Height 5 ft 1.5 in Weight 76.839 kg Assessment and Plan Assessment Anesthesia Assessment: Chart Reviewed Final Anesthetic Review Family History of Problems with Anesthesia: No History of Problems with Anesthesia: No Documented by User: Pooja Ovalles MD 11/03/21 08:24 [facility] Past Medical History Medical History Acquired hypothyroidism Allergic rhinitis COPD (chronic obstructive pulmonary disease) Dyslipidemia Essential hypertension Gait instability Pruritic intertrigo Tubular adenoma of colon Type 2 diabetes mellitus without complication, without long-term current use of insulin Functional capacity: independent ambulation Patient : No Family History Family History Father Cancer of prostate Mother COPD (chronic obstructive pulmonary disease) Polio Smoker Daughter Breast cancer Paternal Grandmother No problems noted. Brother No problems noted. Sister No problems noted. Sister No problems noted. Sister No problems noted. Son No problems noted. Daughter No problems noted. Surgical History Surgical History History of basal cell carcinoma excision History of colonoscopy Hx of right cataract extraction Social History Social History Housing: House Are you a primary pharmacist critical care to a significant other at home: No Do you presently have visiting nurse or other home services: No Alcohol intake: current Patient Tobacco Use Status: Never used Tobacco e-Cigarette/Vaping Use: Never Used Use of substances other than those prescribed or required for medical reasons: No Have you been hit, kicked, punched, or otherwise hurt by someone within the past year? If so, by whom?: No Are you DNR?: No Advance Directives: No Advance Directives Information Provided: Yes Advance Directives on File: No Recently lost weight without trying: No Eating poorly because of decreased appetite: No Nutrition Risks: No Nutritional Risk Patient : No : No service: No Current occupational status: retired Cognitive needs: No Hearing needs: No Vision needs: No Meds Allergies Allergy/AdvReac Type Severity Reaction Status Date / Time levofloxacin [Levaquin] AdvReac Unknown achilles Verified 10/08/21 09:19 tendon issue bee stings Allergy Unknown anaphylaxis Uncoded 10/08/21 09:19 stainless steel Allergy Unknown severe Uncoded 10/08/21 09:19 Derm reaction chlorine AdvReac Difficulty Uncoded 10/08/21 09:19 Breathing Home Medications Medication Instructions Recorded Confirmed Last Taken Type flaxseed oil 1,000 mg capsule 1,000 mg PO BID 02/28/20 10/06/21 Unknown History omega 7-zts-iau-fish oil 300 1 cap PO DAILY 02/28/20 10/06/21 10/12/21 History mg-1,000 mg capsule (Fish Oil) psyllium husk 3.4 gram/5.4 gram 1 tbsp PO DAILY 02/28/20 10/06/21 Unknown History oral powder (Metamucil) cholecalciferol (vitamin D3) 50 50 mcg PO DAILY 04/15/20 10/06/21 Unknown History mcg (2,000 unit) capsule glucosamine sulfate 1,000 mg tablet 1,000 mg PO BID 04/15/20 10/06/21 Unknown History biotin 800 mcg tablet 800 mcg PO DAILY 02/27/21 10/06/21 Unknown History cetirizine 10 mg tablet (Zyrtec) 10 mg PO DAILY 02/27/21 10/06/21 Unknown History nystatin 100,000 unit/mL oral 1 ml PO TID PRN thrush 02/27/21 10/06/21 Unknown History suspension nystatin-triamcinolone 100,000 1 appl topical DAILY PRN Rash 02/27/21 10/06/21 Unknown History unit/g-0.1 % topical cream aspirin 325 mg tablet 325 mg PO DAILY 10/06/21 10/06/21 10/29/21 History irbesartan 150 mg tablet 150 mg PO BEDTIME 10/06/21 10/06/21 Unknown History Exam Airway Mallampati Class: II TM Dist: >3cm Neck ROM: Full Heart: RRR Lungs: CTA Assessment and Plan Final Anesthetic Review NPO: Yes ASA Class: II Final Preanesthetic Review: No Changes in Pt Med Stat, Meds/Allgs Chart Reviewed, Consent Obtained/Reviewed and Anes Risks/Benef Reviewed Patient Risk: Low Procedure Risk: Low Anesthetic Plan Anesthetic Plan: MAC: Disposition: Standard PACU
[2021-11-03 06:33] VITALS: BP 140/64; PULSE 58; RESP 16; TEMP 36.4; O2SAT 96
[2021-11-03 06:40] LABS: Glucose, Whole Blood 93 mg/dL (60-115)
[2021-11-03] MEDS: Lactated Ringers 500 ML 50 ML IV (06:47)
--- NOTE | 2021-11-03 06:49 | MHC.SHP ---
Pre-Procedural Eval Section A Date of Service: 11/03/21 The patient is an INPATIENT: No Changes since office visit: No Cold of Flu in the past 2 weeks, No New Medical Problems, No Changes in Medication and No Patient answered all questions The History & Physical has been completed within 30 days and I have reviewed it.: Yes Section B Chief Complaint: cataract Allergies: Allergies Allergy/AdvReac Type Severity Reaction Status Date / Time levofloxacin [Levaquin] AdvReac Unknown achilles Verified 10/08/21 09:19 tendon issue bee stings Allergy Unknown anaphylaxis Uncoded 10/08/21 09:19 stainless steel Allergy Unknown severe Uncoded 10/08/21 09:19 Derm reaction chlorine AdvReac Difficulty Uncoded 10/08/21 09:19 Breathing Plan Diagnosis/Plan: Unchanged I have reviewed the history and physical and performed a pertinent physical examination on my patient. No changes have occurred unless specified.
--- NOTE | 2021-11-03 08:32 | HO.PNOPHT ---
Ophthalmology Procedure Procedure Date of Service: 11/03/21 Ophthalmology Viscoelastic: Bro Gomez Dual Pack Pro Ophthalmology Lenses: TECNIS AB2107 (22.5) Procedure Notes: PREOPERATIVE DIAGNOSIS: Decreased visual acuity right eye secondary to cataract POSTOPERATIVE DIAGNOSIS: Same PROCEDURE: Right cataract extraction with intraocular lens insertion SURGEON: Jaime Alberts M.D. ANESTHESIA: Topical/MAC ESTIMATED BLOOD LOSS: None COMPLICATIONS: Zonular dehiscence vs capsular tear After obtaining informed consent, the patient was brought to the operating room suite and placed in the supine position. After adequate sedation per anesthesia, topical drops of Tetracaine were given to the right eye. The eye was then prepped and draped in the usual sterile fashion. The operating room microscope was then positioned over the operative eye and a lid speculum placed. A paracentesis was created. Viscoelastic was then instilled into the anterior chamber. A three plane incision was then created temporally, utilizing a 2.85 mm keratome. Capsulotomy forceps were then utilized to create a circular tear capsulotomy. Hydrodissection and hydrodelineation were carried out until adequate mobilization of the nucleus occurred. Phacoemulsification was then utilized to remove the dense central nucleus followed by removal of the cortical material utilizing the automated aspiration irrigation unit. Viscoelastic was instilled into the posterior capsular bag followed by placement of a posterior chamber intraocular lens without difficulty. The residual Viscoelastic was then removed utilizing the automated IA machine. There was a small capsular tear vs zonular weakness was noted , I elected to place the IOL in the Sulcus with capsular capture of the optic. The wound was checked and found to be watertight. The patient tolerated the procedure well and the lid speculum was removed. Intracameral injection of Vigamox 0.1 mL followed by a subtenon injection of Kenalog-40 0.2 mL were administered. The patient will be seen in the a.m.
[2021-11-03 09:08] VITALS: BP 101/63; PULSE 62; RESP 18; TEMP 36.3; O2SAT 97
--- NOTE | 2021-11-03 10:45 | HO.POSTANES ---
Post Anesthesia Evaluation Post Anesthesia Evaluation Vital Signs: Vital Signs Temp Pulse Resp BP Pulse Ox O2 Del Method 11/03/21 09:08 97.4 F 62 18 101/63 97 Room Air 11/03/21 06:33 97.5 F 58 16 140/64 H 96 Room Air Anesthesia: Monitored Mental Status: Awake Pain Control: Satisfactory Nausea/Vomiting: None Hydration: Adequate Anesthesia-Related Issues: No Anes. Related Issues
== END 2021-11-03 09:29 | disposition home or self-care (01) ==
PROVIDERS: PCP Internal Medicine; Visit Provider Ophthalmology
PROC: (CPT 66985; principal; 2021-11-03 08:50)
DX: H25.11 Age-related nuclear cataract, right eye (principal); H59.211 Accidental puncture and laceration of right eye and adnexa during an ophthalmic procedure; H27.8 Other specified disorders of lens; H35.033 Hypertensive retinopathy, bilateral; H52.4 Presbyopia; J44.9 Chronic obstructive pulmonary disease, unspecified; I10 Essential (primary) hypertension; E03.9 Hypothyroidism, unspecified; E78.00 Pure hypercholesterolemia, unspecified; E11.9 Type 2 diabetes mellitus without complications; Z79.84 Long term (current) use of oral hypoglycemic drugs; Z79.82 Long term (current) use of aspirin; Z79.51 Long term (current) use of inhaled steroids; Z79.899 Other long term (current) drug therapy; Z88.1 Allergy status to other antibiotic agents; Z87.891 Personal history of nicotine dependence
CPT/HCPCS: 66982; 67005; 82947; J2250; J3300; V2632

== ENCOUNTER 2021-12-24 06:26 | Outpatient (REF) | payer MEDICARE, OTHER, SELFPAY ==
[2021-12-24 07:54] LABS: Estimated Average Glucose 108 mg/dL; Hemoglobin A1c % 5.4 %
[2021-12-24 07:58] LABS: Alanine Aminotransferase 17 U/L (0-31); Anion Gap 15 (12-20); Aspartate Amino Transferase 18 U/L (5-31); Blood Urea Nitrogen 29 mg/dL (9-16); Calcium 10.3 mg/dL (8.4-10.2); Carbon Dioxide 24 mmol/L (22-29); Chloride 107 mmol/L (96-108); Cholesterol 162 mg/dL; Estimated Glomerular Filt Rate > 60; Glucose Fasting 86 mg/dL (60-99); HDL Cholesterol 74 mg/dL; LDL Cholesterol Calculated 77 mg/dl; Potassium 5.4 mmol/L (3.3-5.1); Sodium 141 mmol/L (135-145); Triglycerides 58 mg/dL
[2021-12-24 08:24] LABS: Free T4 (Free Thyroxine) 1.27 ng/dL (0.71-1.85); Thyroid Stimulating Hormone 0.24 uIU/mL (0.32-4.0)
== END 2021-12-24 06:27 | disposition home or self-care (01) ==
LOC: HO.LAB 06:26
PROVIDERS: PCP Internal Medicine; Visit Provider Internal Medicine
DX: E03.9 Hypothyroidism, unspecified (principal); E78.5 Hyperlipidemia, unspecified; E11.9 Type 2 diabetes mellitus without complications; I10 Essential (primary) hypertension
CPT/HCPCS: 36415; 80048; 80061; 83036; 84439; 84443; 84450; 84460

== ENCOUNTER → 2022-01-13 11:17 | Outpatient (BNVA) | payer MEDICARE, OTHER, SELFPAY | PROVIDERS: PCP Internal Medicine; Visit Provider Internal Medicine | DX: J44.9 Chronic obstructive pulmonary disease, unspecified (principal); J30.9 Allergic rhinitis, unspecified | CPT/HCPCS: 99212 ==

== ENCOUNTER 2022-03-26 07:02 | Outpatient (REF) | payer MEDICARE, OTHER, SELFPAY ==
[2022-03-26 07:47] LABS: Estimated Average Glucose 103 mg/dL; Hemoglobin A1c % 5.2 %
[2022-03-26 08:20] LABS: Alanine Aminotransferase 16 U/L (0-31); Anion Gap 16 (12-20); Aspartate Amino Transferase 17 U/L (5-31); Blood Urea Nitrogen 29 mg/dL (9-16); Calcium 10.3 mg/dL (8.4-10.2); Carbon Dioxide 21 mmol/L (22-29); Chloride 110 mmol/L (96-108); Cholesterol 176 mg/dL; Estimated Glomerular Filt Rate 56; Glucose Fasting 102 mg/dL (60-99); HDL Cholesterol 86 mg/dL; LDL Cholesterol Calculated 77 mg/dl; Potassium 5.5 mmol/L (3.3-5.1); Sodium 141 mmol/L (135-145); Triglycerides 68 mg/dL
[2022-03-26 08:29] LABS: Creatinine Urine 66.52 mg/dL; Microalbumin Urine < 5.0 mg/L
[2022-03-26 08:41] LABS: Free T4 (Free Thyroxine) 1.16 ng/dL (0.71-1.85); Thyroid Stimulating Hormone 0.29 uIU/mL (0.32-4.0); Vitamin D 25-OH Total 60.2 ng/mL (>30)
== END 2022-03-26 07:03 | disposition home or self-care (01) ==
LOC: HO.LAB 07:02
PROVIDERS: PCP Internal Medicine; Visit Provider Internal Medicine
DX: E03.9 Hypothyroidism, unspecified (principal); E11.9 Type 2 diabetes mellitus without complications; I10 Essential (primary) hypertension; E78.5 Hyperlipidemia, unspecified
CPT/HCPCS: 36415; 80048; 80061; 82043; 82306; 83036; 84439; 84443; 84450; 84460

== ENCOUNTER 2022-06-23 09:14 | Outpatient (REF) | payer MEDICARE, OTHER, SELFPAY | END 2022-06-23 09:15 | disposition home or self-care (01) | LOC: HO.MAMMO 09:14 | PROVIDERS: PCP Internal Medicine; Visit Provider Internal Medicine | DX: Z13.89 Encounter for screening for other disorder (principal) ==

== ENCOUNTER 2022-06-23 09:14 | Outpatient (REF) | payer MEDICARE, OTHER, SELFPAY ==
--- NOTE | ~2022-06-23 | MM_ITS ---
EXAMINATION: MM SCREENING DIGITAL BREAST TOMOSYNTHESIS, BILATERAL CLINICAL INFORMATION: Screening. Asymptomatic. The lifetime risk of breast cancer based on the Tyrer-Cuzick Model is 4%. COMPARISON: Mammography: 06/16/2021, 06/14/2020, 03/28/2019 TECHNIQUE: Digital breast tomosynthesis is performed in both the craniocaudal and mediolateral oblique views along with computer-aided detection (CAD). Synthesized 2D images are generated from the tomosynthesis. FINDINGS: There are scattered areas of fibroglandular density (ACR BI-RADS breast composition Category b). Parenchymal pattern is similar to prior studies. There is fibronodular pattern with scattered stable asymmetries. No developing density or architectural abnormality. There are no significant masses, abnormal calcifications, or other abnormalities. Again, there are regional predominantly ductal secretory calcifications right lower inner quadrant. The axilla and skin contours are unremarkable. MM/MM tomosynthesis screening BI IMPRESSION: No mammographic evidence of malignancy. ASSESSMENT: BI-RADS 2: Benign RECOMMENDATION: Routine annual mammography screening. This patient's information was entered into a reminder system with a target due date for their next mammogram.
--- NOTE | ~2022-06-23 | MM_ITS ---
EXAMINATION: BONE DENSITOMETRY CLINICAL INDICATION: Osteopenia. COMPARISON: Previous BD dated 06/14/2020 and baseline BD dated 08/24/2007. TECHNIQUE: Using a Kluster DXA System (software version: 13.1) manufactured by [employer], dual-energy x-ray absorptiometry was performed of the lumbar spine and left hip. The images are of good technical quality. Summary results are attached. FINDINGS: AP SPINE L1-L4: Current: BMD 1.135 g/cm2, Z-score 1.2, T-score -0.4, normal, 1.7% decrease from previous, 4.1% increase from baseline (<5% change is not significant). Prior: BMD 1.155 g/cm2. Baseline: BMD 1.090 g/cm2. LEFT FEMUR, NECK: Current: BMD 0.915 g/cm2, Z-score 1.1, T-score -0.9, normal. Prior: BMD 0.878 g/cm2. Baseline: BMD 0.909 g/cm2. LEFT FEMUR, TOTAL: Current: BMD 1.091 g/cm2, Z-score 2.5, T-score 0.7, normal, 4.3% increase from previous, 1.2% increase from baseline (<5% change is not significant). Prior: BMD 1.046 g/cm2. Baseline: BMD 1.078 g/cm2. IDENTIFIED RISK FACTORS: Menopause. HISTORY OF FRACTURE: None listed. MEDICATIONS: Vitamin D. MM/XR DEXA axial skeleton IMPRESSION: 1. DIAGNOSIS: Normal bone density based on the lowest T-score value of -0.9 in the femur neck applying World Health Organization criteria. 2. 10-YEAR FRACTURE RISK PREDICTION, FRAX: According to the guidelines, FRAX calculation should only be performed on patients in the osteopenia bone density category. Therefore, FRAX was not performed on this patient. 3. Treatment Recommendations: NOF guidelines recommend consideration for treatment in postmenopausal women and men age 50 and older presenting with the following: -A hip or vertebral (clinical or morphometric) fracture. -T-score less than or equal to -2.5 at the femoral neck or spine after appropriate evaluation to exclude secondary causes. -Low bone mass at the hip or spine and a 10-year fracture probability by FRAX of greater than or equal to 3% for hip fracture or greater than or equal to 20% for major osteoporotic fracture based on the [place] adapted WHO algorithm. 4. Other Recommendations: All treatment decisions require clinical judgment and consideration of individual patient factors, including patient preferences, comorbidities, previous drug use, risk factors not captured in the FRAX model (e.g. frailty, falls, vitamin D deficiency, increased bone turnover, interval significant decline in bone density) and possible under or overestimation of fracture risk by FRAX. FUTURE SCAN RECOMMENDATION: People with diagnosed cases of osteoporosis or at high risk for fracture should have regular bone mineral density tests. For patients eligible for Medicare, routine testing is allowed once every 2 years. The testing frequency can be increased to one year for patients who have rapidly progressing disease, those who are receiving or discontinuing medical therapy to restore bone mass, or have additional risk factors.
== END 2022-06-23 09:15 | disposition home or self-care (01) ==
LOC: HO.MAMMO 09:14
PROVIDERS: PCP Internal Medicine; Visit Provider Internal Medicine
DX: Z12.31 Encounter for screening mammogram for malignant neoplasm of breast (principal); Z13.820 Encounter for screening for osteoporosis; Z78.0 Asymptomatic menopausal state; M85.852 Other specified disorders of bone density and structure, left thigh
CPT/HCPCS: 77063; 77067; 77080

== ENCOUNTER → 2022-07-14 09:21 | Outpatient (BNVA) | payer MEDICARE, OTHER, SELFPAY | PROVIDERS: PCP Internal Medicine; Visit Provider Internal Medicine | DX: J44.9 Chronic obstructive pulmonary disease, unspecified (principal); E11.9 Type 2 diabetes mellitus without complications; Z79.82 Long term (current) use of aspirin; Z79.84 Long term (current) use of oral hypoglycemic drugs | CPT/HCPCS: 99212 ==

== ENCOUNTER 2022-10-09 09:10 | Outpatient (AMB) | payer MEDICARE, OTHER, SELFPAY ==
--- NOTE | 2022-10-09 09:33 | MHC.OFFWIV ---
Intake Vital Signs 10/09/22 09:35 Height 5 ft 2 in BP 120/62 Blood Pressure Location Rt brachial Position Sitting Pulse 67 Pulse Source Pulse Oximeter Temp 97.3 F Temp Source Temporal Artery Scan Pulse Oximetry (%) 96 Oxygen Delivery Method Room Air Intake Visit Reasons: EST/stiff neck Intake Note: Pt is here c/o having a stiff neck for three days. Patient Tobacco Use Status: Never used Tobacco Allergies levofloxacin [Levaquin] Adverse Reaction (Unknown, Verified 10/09/22 09:34) achilles tendon issue bee stings Allergy (Unknown, Uncoded 10/09/22 09:34) anaphylaxis stainless steel Allergy (Unknown, Uncoded 10/09/22 09:34) severe Derm reaction chlorine Adverse Reaction (Uncoded 10/09/22 09:34) Difficulty Breathing Do you need a note to return to daycare/school/sports/work: No HPI HPI Comments History of Present Illness Details This is an 82-year-old female who presents to the office today for a sick visit. Patient complaining of left-sided neck/shoulder pain and stiffness x3 days. Patient states she developed a dental abscess 4 days ago and went to see her dentist and they started her on amoxicillin and referred her to a specialist she will be seen in 3 days. The following day, she developed some mild left-sided neck pain and stiffness. She has been utilizing alternating heat/ice to the area with only minimal alleviation. Patient states this stiffness has been progressively worsening. She denies any known trauma or injury to the area. She does report some mild headaches. She also reports she was mildly nauseous this morning. She denies any vomiting. She denies any visual disturbances. She denies any numbness/weakness/paresthesias of her extremities. She denies any facial asymmetry. She denies any slurred speech. She denies any photophobia or phonophobia. She denies any fevers or chills. X-ray cervical spine Robaxin Lidocaine patch [facility] Medical History Acquired hypothyroidism Allergic rhinitis COPD (chronic obstructive pulmonary disease) Dyslipidemia Essential hypertension Gait instability Hammertoe of second toe of right foot Osteopenia of left hip Pruritic intertrigo Tubular adenoma of colon Type 2 diabetes mellitus without complication, without long-term current use of insulin Surgical History History of basal cell carcinoma excision History of colonoscopy Hx of right cataract extraction Family History Father Cancer of prostate Mother COPD (chronic obstructive pulmonary disease) Polio Smoker Daughter Breast cancer Paternal Grandmother No problems noted. Brother No problems noted. Sister No problems noted. Sister No problems noted. Sister No problems noted. Son No problems noted. Daughter No problems noted. Social History Housing: House Are you a primary day care home provider to a significant other at home: No Do you presently have visiting nurse or other home services: No Alcohol intake: current Patient Tobacco Use Status: Never used Tobacco e-Cigarette/Vaping Use: Never Used service: No Current occupational status: retired Cognitive needs: No Hearing needs: No Vision needs: No Review of Systems Const All systems reviewed & are unremarkable except as noted in HPI and below Reports as per HPI, Denies chills, Denies fever(s) and Reports headache(s) Eyes Reports no additional complaints, Denies change in vision and Denies loss of vision ENT Reports no additional complaints, Denies dizziness, Reports headache(s) and Reports neck pain Card Reports no additional complaints and Denies syncope Resp Reports no additional complaints GI Reports no additional complaints, Reports nausea and Denies vomiting Reports no additional complaints Musc Reports no additional complaints, Denies abnormal gait, Reports neck pain, Denies numbness, Reports stiffness and Denies tingling Skin/Breast Reports system reviewed and no additional complaints, except as documented Neuro Reports no additional complaints, Denies Neuro-related abnormal movements, Denies Abnormal speech present, Denies abnormal gait, Denies dizziness, Denies syncope, Reports headache(s), Denies focal weakness, Denies loss of vision, Denies numbness, Denies seizure-like activity, Denies Sensory deficit (Neuro), Denies tingling and Denies paresthesias Psych Reports no additional complaints Endo Reports no additional complaints Gurwinder/Lymph Reports no additional complaints Aller/Immun Reports no additional complaints Physical Exam Vital Signs: Last Vital Signs Temp 97.3 F 10/09/22 09:35 Pulse 67 10/09/22 09:35 BP 120/62 10/09/22 09:35 Pulse Ox 96 10/09/22 09:35 Oxygen Delivery Method Room Air 10/09/22 09:35 Const General: cooperative and no acute distress Orientation/consciousness: patient oriented x3 HEENT Head: Yes normal to inspection Ears: hearing grossly normal bilaterally General nose exam: Normal external nose present Face and sinus: Yes normal facial exam Eyes General: appearance normal, both eyes and all related structures Visual Magana: normal visual magana by confrontation Pupils: Equal, round and reactive pupils present EOM: EOMs intact bilaterally Neck Other: Decreased range of motion with rotation of the neck to the left. Normal flexion/extension of the cervical spine. No meningeal signs Resp Effort & Inspection: normal respiratory effort Auscultation: clear to auscultation bilaterally Cardio Rate: regular rate Rhythm: regular rhythm Heart sounds: no gallops, no murmurs and no rubs Peripheral pulses: Peripheral pulses 2+ throughout Back/Spine/Pelvis Other: No midline spinous process tenderness to palpation throughout the entire spine. Palpable spasm of the left cervical paraspinal musculature with palpable spasm of the trapezius muscle. Skin General skin exam: no rashes or lesions noted Neuro General: patient oriented x3 Cranial nerves: Yes CN's II-XII intact bilaterally and Yes Equal, round and reactive pupils present Cognition (Neuro): normal cognition Speech: No Abnormal speech present Gait exam (Neuro): Normal gait present Motor exam (neuro): 5/5 motor strength present throughout Sensory Exam: No Sensory deficit (Neuro) Coordination: [id number] test normal Assessment & Plan Assessment & Plan (1) Neck stiffness: Code(s): M43.6 - Torticollis Plan This is an 82-year-old female presenting to the office complaining of left-sided neck pain/stiffness. History and physical most consistent with cervical sprain/strain. Considered meningitis given atraumatic neck pain/stiffness, but patient has palpable spasms of the left cervical paraspinal musculature as well as the left trapezius and she has no fever/chills, systemic symptoms, or focal neurological deficits. Patient has no radicular symptoms. X-ray of the cervical spine obtained. Patient was given p.o. methocarbamol 500 mg every night at bedtime as needed for muscle spasms as well as a daily lidocaine 5% patch. Patient advised to utilize a heating pad to the area. Patient advised to follow up directly with the emergency room if she were to develop fever/chills, neurological symptoms, or seizure-like activity. Patient verbalizes understanding and she is agreeable with the plan. Orders: Orders XR cervical spine 2V Today M54.2 - Cervicalgia Medications: New methocarbamol 500 mg PO BEDTIME 7 days PRN 7 tabs 0RF muscle spasm lidocaine 5% leave on most painful area for up to 12 hrs 1 patch topical DAILY 15 ea 0RF Coding Level of Care Code Est Pt Level 3 (49105) Diagnoses Neck stiffness M43.6
[2022-10-09 09:35] VITALS: BP 120/62; PULSE 67; TEMP 36.3; O2SAT 96
== END 2022-10-09 10:09 | disposition home or self-care (01) ==
PROVIDERS: PCP Internal Medicine; Visit Provider Physician Assistant Medical
DX: M43.6 Torticollis (principal)
CPT/HCPCS: 99213

== ENCOUNTER 2022-10-09 10:07 | Outpatient (REF) | payer MEDICARE, OTHER, SELFPAY ==
--- NOTE | ~2022-10-09 | XR_ITS ---
EXAMINATION: XR CERVICAL SPINE CLINICAL INFORMATION: Cervicalgia COMPARISON: None available. TECHNIQUE: 3 views of the cervical spine were obtained. FINDINGS: No fracture or subluxation. Vertebral body height and alignment maintained. There is mild disc space narrowing at C5-C6 with small endplate osteophytes and mild facet arthropathy. The atlantoaxial joint is well aligned. The dens is intact. The prevertebral soft tissues are unremarkable. The visualized lung apices are clear. XR/XR cervical spine 2V IMPRESSION: Mild degenerative changes at C5-C6.
== END 2022-10-09 10:08 | disposition home or self-care (01) ==
LOC: HO.HMGCX 10:07
PROVIDERS: PCP Internal Medicine; Visit Provider Physician Assistant Medical
DX: M54.2 Cervicalgia (principal)
CPT/HCPCS: 72040

== ENCOUNTER 2022-10-22 06:39 | Outpatient (REF) | payer MEDICARE, OTHER, SELFPAY ==
[2022-10-22 06:54] LABS: MANUAL DIFF FLAG NO
[2022-10-22 07:11] LABS: Basophils Percent Auto 0.4 % (0-2); Eosinophils Absolute Auto 0.6 X10*3/uL (0.0-0.4); Eosinophils Percent Auto 7.6 % (0-4); Hematocrit 38.8 % (37.0-47.0); Hemoglobin 12.2 g/dl (12.0-16.0); Imm Gran Abs Auto 0.03 X10*3/uL (0.00-0.03); Imm Gran Pct Auto 0.4 % (0.0-0.4); Lymphocytes Absolute Auto 2.5 X10*3/uL (1.2-4.9); Lymphocytes Percent Auto 33.7 % (20-40); Mean Corpuscular HGB Conc 31.4 g/dl (31.0-35.0); Mean Corpuscular Hemoglobin 30.7 pg (27.0-33.0); Mean Corpuscular Volume 97.7 fL (80.0-98.0); Mean Platelet Volume 9.4 fL (9.4-12.3); Monocytes Absolute Auto 0.5 X10*3/uL (0.1-1.2); Monocytes Percent Auto 7.4 % (2-11); Neutrophils Absolute Auto 3.7 x10*3/uL (2.0-8.3); Neutrophils Percent Auto 50.5 % (45-73); Platelet Count 306 X10*3/uL (160-400); Red Blood Count 3.97 X10*6/uL (4.20-5.50); Red Cell Distribution Width 13.2 % (11.0-16.0); White Blood Count 7.3 X10*3/uL (4.8-10.8)
[2022-10-22 07:17] LABS: Estimated Average Glucose 105 mg/dL; Hemoglobin A1c % 5.3 %
[2022-10-22 08:10] LABS: Alanine Aminotransferase 19 U/L (0-31); Anion Gap 15 (12-20); Aspartate Amino Transferase 18 U/L (5-31); Blood Urea Nitrogen 21 mg/dL (9-16); Calcium 10.2 mg/dL (8.4-10.2); Carbon Dioxide 21 mmol/L (22-29); Chloride 112 mmol/L (96-108); Cholesterol 161 mg/dL; Estimated Glomerular Filt Rate > 60; Glucose Fasting 104 mg/dL (60-99); HDL Cholesterol 81 mg/dL; LDL Cholesterol Calculated 68 mg/dl; Potassium 5.3 mmol/L (3.3-5.1); Sodium 143 mmol/L (135-145); Triglycerides 63 mg/dL
[2022-10-22 08:27] LABS: Free T4 (Free Thyroxine) 1.23 ng/dL (0.71-1.85); Thyroid Stimulating Hormone 0.42 uIU/mL (0.32-4.0); Vitamin D 25-OH Total 69.6 ng/mL (>30)
[2022-10-22 11:42] LABS: Creatinine Urine 44.77 mg/dL; Microalbum/Creatinine Ratio Ur 15.6 ug/mg cr
== END 2022-10-22 06:40 | disposition home or self-care (01) ==
LOC: HO.LAB 06:39
PROVIDERS: PCP Internal Medicine; Visit Provider Internal Medicine
DX: D12.6 Benign neoplasm of colon, unspecified (principal); E03.9 Hypothyroidism, unspecified; E78.5 Hyperlipidemia, unspecified; I10 Essential (primary) hypertension; M85.852 Other specified disorders of bone density and structure, left thigh; N95.9 Unspecified menopausal and perimenopausal disorder; E11.9 Type 2 diabetes mellitus without complications
CPT/HCPCS: 36415; 80048; 80061; 82043; 82306; 83036; 84439; 84443; 84450; 84460; 85025

== ENCOUNTER 2022-10-26 07:52 | Outpatient (AMB) | payer MEDICARE, OTHER, SELFPAY ==
--- NOTE | 2022-10-26 08:01 | A.OFFPC_ITS ---
Vital Signs 10/26/22 08:07 Height 5 ft 2 in Weight 117 lb BMI 21.4 BP 152/68 H Blood Pressure Location Rt brachial Position Sitting Pulse 58 Pulse Oximetry (%) 96 Oxygen Delivery Method Room Air Intake Visit Reasons: Annual Physical Intake Note: Pt is here today for her PE Allergies levofloxacin [Levaquin] Adverse Reaction (Unknown, Verified 10/26/22 08:08) achilles tendon issue bee stings Allergy (Unknown, Uncoded 10/26/22 08:08) anaphylaxis stainless steel Allergy (Unknown, Uncoded 10/26/22 08:08) severe Derm reaction chlorine Adverse Reaction (Uncoded 10/26/22 08:08) Difficulty Breathing Tobacco use date assessed: 10/26/22 Fall risk assessment: No Falls in past year Last assessed Fall Risk: 10/26/22 Dental Screening Dental Screen Date: 10/26/22 Did you have a dental visit in the last 12 months?: Yes Did you have a dental problem in the last 6 months where you did not have access to dental care?: Yes Was dental information given to patient?: Patient has dentist HPI Annual Physical HPI Details 82-year-old lady here today for physical exam. She has dyslipidemia, seasonal allergies, hypertension, hypothyroidism, diabetes mellitus, history of osteopenia of left hip, and COPD. She has been compliant with all her m edications and has been doing well. Bone density done 06/23/2022 showed normal bone density in lumbar spine, femoral neck and left femur. Screening mammogram done 06/23/2022 also showed normal findings. She had recent fasting labs done which showed hemoglobin A1c at 5.3%, fasting lipids within normal limits, electrolytes renal function vitamin-D and thyroid also within normal limits except for slightly elevated potassium at 5.3. Patient admits to eating a lot of spinach, takes V8 juice every day with her medications She had a screening colonoscopy done in [address] Paredes, and was told t hat she no longer needs further screenings after that procedure. Up-to-date with her vaccinations including her COVID booster, pneumococcal vaccination, gets yearly flu shots and Tdap. Received 1 dose of her shingles vaccine October 2022 and is not yet due for her 2nd dose. Systolic blood pressure elevated on today's visit, as patient states that she has still been waiting for her diltiazem prescription to come, has not had her tablets for the last 2 days now. Denies any chest pain, no headache, no lightheadedness, no shortness of breath reported. She also has been seeing her dentist, for treatment of an infected upper tooth. She has an appointment to see him back again on 11/05/2022. She sees Dr. Alberts for her routine eye exam and Dr. Herbert for her diabetes foot exam.8 every day She had a screening colonoscopy done in [address] Paredes, and was told that she no longer needs further screenings after that procedure. Up-to-date with her vaccinations including her COVID booster, pneumococcal vaccination, gets yearly flu shots and Tdap. Received 1 dose of her shingles vaccine October 2022 and is not yet due for her 2nd dose. Systolic blood pressure elevated on today's visit, as patient states that she has still been waiting for her diltiazem prescription to come, has not had her tablets for the last 2 days now. Denies any chest pain, no headache, no lightheadedness, no shortness of breath reported. She also has been seeing her dentist, for treatment of an infected upper tooth. She has an appointment to see him back again on 11/05/2022. She sees Dr. Alberts for her routine eye exam and Dr. Herbert for her diabetes foot exam every day She had a screening colonoscopy done in [address] Paredes, and was told that she no longer needs further screenings after that procedure. Up-to-date with her vaccinations including her COVID booster, pneumococcal vaccination, gets yearly flu shots and Tdap. Received 1 dose of her shingles vaccine October 2022 and is not yet due for her 2nd dose. Systolic blood pressure elevated on today's visit, as patient states that she has still been waiting for her diltiazem prescription to come, has not had her tablets for the last 2 days now. Denies any chest pain, no headache, no lightheadedness, no shortness of breath reported. She also has been seeing her dentist, for treatment of an infected upper tooth. She has an appointment to see him back again on 11/05/2022. She sees Dr. Alberts for her routine eye exam and Dr. Herbert for her diabetes foot exam every day She had a screening colonoscopy done in [address] Paredes, and was told that she no longer needs further screenings after that procedure. Up-to-date with her vaccinations including her COVID booster, pneumococcal vaccination, gets yearly flu shots and Tdap. Received 1 dose of her shingles vaccine October 2022 and is not yet due for her 2nd dose. Systolic blood pressure elevated on today's visit, as patient states that she has still been waiting for her diltiazem prescription to come, has not had her tablets for the last 2 days now. Denies any chest pain, no headache, no lig htheadedness, no shortness of breath reported. She also has been seeing her dentist, for treatment of an infected upper tooth. She has an appointment to see him back again on 11/05/2022. She sees Dr. Alberts for her routine eye exam and Dr. Herbert for her diabetes foot exam. [facility] Medical History (Updated 10/26/22 @ 09:14 by Shilpi Austin MD) Acquired hypothyroidism Allergic rhinitis COPD (chronic obstructive pulmonary disease) Dyslipidemia Essential hypertension Hammertoe of second toe of right foot Tubular adenoma of colon Type 2 diabetes mellitus without complication, without long-term current use of insulin Surgical History History of basal cell carcinoma excision History of colonoscopy Hx of right cataract extraction Family History Father Cancer of prostate Mother COPD (chronic obstructive pulmonary disease) Polio Smoker Daughter Breast cancer Paternal Grandmother No problems noted. Brother No problems noted. Sister No problems noted. Sister No problems noted. Sister No problems noted. Son No problems noted. Daughter No problems noted. Social History Housing: House Are you a primary hospice patient care secretary to a significant other at home: No Do you presently have visiting nurse or other home services: No Alcohol intake: current Patient Tobacco Use Status: Never used Tobacco e-Cigarette/Vaping Use: Never Used service: No Current occupational status: retired Cognitive needs: No Hearing needs: No Vision needs: No Questionnaire PHQ-9 Over the last 2 weeks, how often have you been bothered by any of the following problems? 1. Little interest or pleasure in doing things: not at all 2. Feeling down, depressed, or hopeless: not at all 3. Trouble falling or staying asleep, or sleeping too much: not at all 4. Feeling tired or having little energy: not at all 5. Poor appetite or overeating: not at all 6. Feeling bad about yourself - or that you are a failure or have let yourself or your family down: not at all 7. Trouble concentrating on things, such as reading the newspaper or watching television: not at all 8. Moving or speaking so slowly that other people could have noticed. Or the opposite - being so fidgety or restless that you have been moving around a lot more than usual: not at all 9. Thoughts that you would be better off or of hurting yourself in some way: not at all Total score: 0 Depression Screening Interpretation: Negative 69901 - PHQ-9 Billing: Yes Source: Developed by Drs. Rod Franz, Shy Velez, Dev Piper and colleagues, with an educational jag from [employer]. Thrive Questionnaire Date Thrive assessed: 10/26/22 I am a: Patient What is your living situation today?: I have a steady place to live Within the past 12 months, did the food you bought not last and you didn't have the money to get more?: Never true Within the past 12 months, did you worry whether your food would run out before you got money to buy more?: Never true Do you have trouble paying for medicines?: No Do you have trouble getting transportation to medical appointments?: No Do you have trouble paying your heating and electricity bill?: No Do you have trouble taking care of your child, family member or friend?: No Do you have trouble with day-to-day activities such as bathing, preparing meals, shopping, managing finances, etc.?: No Are you currently unemployed and looking for a job?: No Are you interested in more education?: No AUDIT C Alcohol Use Questionnaire (AUDIT-C) 1. How often do you have a drink containing alcohol?: 4 or more times a week 2. How many drinks containing alcohol do you have on a typical day when you are drinking?: 1 or 2 3. How often do you have six or more drinks on one occasion?: Never Total Score: 4 RICA-7 AMB Questionnaire RICA-7 Date RICA - 7 assessed: 10/26/22 Feeling nervous, anxious, or on edge: 0 = Not at all Not being able to stop or control worryin = Not at all Worrying too much about different things: 0 = Not at all Trouble relaxin = Not at all Being so restless that it is hard to sit still: 0 = Not at all Becoming easily annoyed or irritable: 0 = Not at all Feeling afraid as if something awful might happen: 0 = Not at all Total RIAC-7 score (0-4 normal; 5-9 mild; 10-14 moderate; 15-21 severe): 0 Source: Developed by Drs. Rod Franz, Shy Velez, Dev Piper and colleagues, with an educational jag from [employer]. RICA-7 Assessment Billing RICA-7 Assessment Tool: RICA-7 Assessment 13888 Review of Systems Const Denies body aches, Denies chills, Denies difficulty sleeping, Denies excessive sweating, Denies fatigue, Denies fever(s), Denies frequent falls, Denies headache(s) and Denies weakness Eyes Details: Sees Dr. Alberts for her routine eye exam Reports no additional complaints, Denies change in vision and Denies loss of vision ENT Reports no additional complaints, Denies dizziness, Denies headache(s), Denies nasal congestion, Denies nasal discharge, Denies neck pain, Denies disequilibrium, Denies post nasal drip and Denies tinnitus Card Denies chest pain, Denies chest pain at rest, Denies syncope, Denies rapid heart rate, Denies pedal edema, Denies irregular heart rhythm, Denies claudication, Denies lightheadedness, Denies dyspnea and Denies dyspnea on exertion Resp Denies cough, Denies dyspnea and Denies dyspnea on exertion GI Denies abdominal pain, Denies melena, Denies bloating, Denies hematochezia, Denies change in bowel habits, Denies change in stool character and Denies heartburn Denies urinary frequency, Denies hot flashes and Denies urinary incontinence Musc Denies abnormal gait, Denies myalgias, Denies arthralgias, Denies neck pain, Denies numbness, Reports stiffness and Denies tingling Skin/Breast Denies breast swelling, Denies breast pain, Denies breast mass, Reports alopecia (Mild), Denies lesions, Denies rash and Denies unusual bruising Neuro Reports no additional complaints, Denies Neuro-related abnormal movements, Denies Abnormal speech present, Denies abnormal gait, Denies dizziness, Denies syncope, Denies frequent falls, Denies headache(s), Denies lack of coordination, Denies focal weakness, Denies loss of vision, Denies memory loss, Denies numbness, Denies seizure-like activity, Denies Sensory deficit (Neuro), Denies tingling, Denies paresthesias, Denies disequilibrium and Denies weakness Psych Reports no additional complaints and Denies memory loss Endo Denies cold intolerance, Denies excessive sweating, Denies fatigue, Denies polyphagia, Denies polydipsia and Denies polyuria Gurwinder/Lymph Reports no additional complaints Aller/Immun Reports no additional complaints Physical exam (Primary Care) Vital Signs: Last Vital Signs Pulse 58 10/26/22 08:07 BP 152/68 H 10/26/22 08:07 Pulse Ox 96 10/26/22 08:07 Oxygen Delivery Method Room Air 10/26/22 08:07 BMI result Body Mass Index 21.4 Tobacco/Smoking Status: Tobacco use Status Tobacco use date assessed 10/26/22 10/26/22 08:14 Patient Tobacco Use Status Never used Tobacco 10/26/22 08:02 e-Cigarette/Vaping Use Never Used 10/26/22 08:02 PHQ-9: PHQ-9 Score PHQ-9: Total score 0 10/26/22 09:01 Depression Screening Interpretation: Negative Thrive Assessment: Date of Thrive Assessment Date Thrive assessed 10/26/22 10/26/22 08:14 Neuro Speech: No Abnormal speech present Sensory Exam: No Sensory deficit (Neuro) Extrem General: Yes full ROM, Yes no joint enlargement, Yes no clubbing, cyanosis or edema, Yes no calf tenderness and Yes normal gait Right lower extremity: foot (Her hammertoe right 2nd toe, bunion on right) Psych Appearance: grossly normal and well kempt Mental Status: mental status grossly normal Speech and movement: Normal speech and movement present Affect: normal affect Attitude: cooperative Thought process: Normal thought process present Thought content: Normal thought content present Results Reviewed Results Reviewed: SPEC : [id number] BERNADETTE: 10/22/22 STATUS: COMP REQ : [id number] RECD: 10/22/22 [facility] DR: Shilpi Austin MD COMP: 10/22/22 ENTERED: 10/22/[address] [facility] [address]: ORDERED: CBC Auto Diff Test Result Flag Reference Site WBC 7.3 4.8-10.8 X10*3/uL RBC 3.97 L 4.20-5.50 X10*6/uL HGB 12.2 12.0-16.0 g/dl HCT 38.8 37.0-47.0 % MCV 97.7 80.0-98.0 fL MCH 30.7 27.0-33.0 pg MCHC 31.4 31.0-35.0 g/dl RDW 13.2 11.0-16.0 % PLT 306 160-400 X10*3/uL ENTERED: 10/22/[address] [facility] [address]: ORDERED: Met Prof Fast, AST, ALT, Lipid Panel, Vitamin D 25-OH, Free T4, TSH Test Result Flag Reference Site Sodium 143 135-145 mmol/L Potassium 5.3 H 3.3-5.1 mmol/L CL 112 H 96-108 mmol/L CO2 21 L 22-29 mmol/L Gap 15 12-20 BUN 21 H 9-16 mg/dL Creat 0.85 0.5-1.4 mg/dL EGFR > 60 NOTE: For -Ivorian individuals, multiply the result by 1.210. Chronic Kidney Disease: Estimated GFR < 60 mL/min/1.73m2 Severe Kidney Disease: Estimated GFR < 15 mL/min/1.73m2 FBS 104 H 60-99 mg/dL A fasting glucose from 100-125 mg/dl is considered impaired (pre-diabetes). CA 10.2 8.4-10.2 mg/dL AST (GOT) 18 5-31 U/L ALT (GPT) 19 0-31 U/L Triglyceride 63 mg/dL Desirable Triglyceride: less than 150 mg/dL Borderline High Triglyceride 150-199 mg/dL High Triglyceride: 200-499 mg/dL Very High Triglyceride: greater than or equal to 5OO mg/dL Chol 161 mg/dL Desirable Cholesterol: less than 200 mg/dL Borderline High Cholesterol: 200-239 mg/dL High Cholesterol: greater than 239 mg/dL LDL Calculated 68 mg/dl Desirable LDL: less than 100 mg/dL Near Optimal/Above Optimal LDL: 110-129 mg/dL Borderline High LDL: 130-159 mg/dL High LDL: 160-189 mg/dL Very High LDL: greater than or equal to 190 mg/dL HDL 81 mg/dL Desirable HDL: greater than 40 mg/dL Note: This HDL assay may give artificially low results in patients with liver disease. Vit D 25-OH Tot 69.6 >30 ng/mL Health Based Reference Values* < 20 ng/mL Deficient 20-30 ng/mL Insufficient > 30 ng/mL Sufficient *Britney DELATORRE. N Engl J Med. 2007;357:266-280 Care must be taken in interpreting Vitamin D results from different laboratories and methodologies. Published data demonstrated that results from patients undergoing hemodialysis may show a negative bias when tested with various automated 25-OH vitamin D assays when compared to LC-MS/MS. When testing samples from patients whose predominant form of Vitamin D is Vitamin D2, such as patients receiving Vitamin D2 supplementation, results that are subtherapeutic should be confirmed with another method such as LC-MS/MS. Free T4 1.23 0.71-1.85 ng/dL TSH 3rd Gen. 0.42 0.32-4.0 uIU/mL TSH 3rd Generation ([facility]) Laboratory Tests 03/26/22 10/22/22 07:09 06:52 Estimat Average Glucose 103 105 Hemoglobin A1c % 5.2 5.3 Laboratory Tests 10/22/22 07:29 Urine Creatinine 44.77 Urine Microalbumin 7.0 Microalb/Creat Ratio 15.6 Assessment and Plan Assessment & Plan (1) Annual visit for general adult medical examination with abnormal findings: Code(s): Z00.01 - Encounter for general adult medical examination with abnormal findings Plan: Reviewed recent fasting labs with patient.. Gets regular dental visit , already has an appointment to follow-up with her dentist for dental in infection 11/05/2022, and sees Dr. Alberts for her regular eye exam every year. Take adequate calcium in diet and vitamin-D 3 at 2000 IU per cap once a day, in addition to weight-bearing exercises to help maintain good muscle tone and weight control. Try attending exercise programs at the [facility] or to Gerardo Chi classes at the [facility] Instructed to do self-breast exam, and continu e yearly mammogram currently up-to-date and also up-to-date with her bone density scan which now shows normal bone density scan in lumbar spine and left femur and femoral neck and left thigh.. Patient no longer needs to do any further screening for colon cancer. Up-to-date with all her vaccinations, reminded to get her 2nd shingles vaccine due again after December 2022 (2) Type 2 diabetes mellitus without complication, without long-term current use of insulin: Code(s): E11.9 - Type 2 diabetes mellitus without complications Plan: Recent lab results reviewed with patient, with sugar and hemoglobin A1c stable and at goal , continue with metformin 1000 mg twice a day. Reinforced diabetic diet and regular exercise with patient. She sees Dr. Alberts yearly for her diabetes retinopathy screening and Dr. Herbert every 3 months for her foot exam Patient advised to inspect feet daily, for any signs of injury, callus or infection. Compliance with diet and regular exercise again stressed. Blood pressure goal is less than 130/80, goal LDL is less than 100 and goal hemoglobin A1c is less than 7% follow-up appointment made in--3-months, after fasting labs done. She is up-to-date with her pneumococcal vaccination, gets yearly flu shots up-to-date with fish COVID vaccination (3) Essential hypertension: Code(s): I10 - Essential (primary) hypertension Plan: Blood pressure at goal of less than 130/80. Continue with current medication. Reinforced importance of following a low sodium diet, getting regular exercise, and lowering stress levels. (4) Acquired hypothyroidism: Code(s): E03.9 - Hypothyroidism, unspecified Plan: Recent thyroid levels are within normal limits, continue current dose of levothyroxine at 100 mcg daily recheck again in 3 month (5) COPD (chronic obstructive pulmonary disease): Comment: 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 Has remained Stable and controlled . [place] : CONTINUE SYMBICORT 80-4.5 2 PUFFS B.I.D.(May try just one inh BID ) INCRUSE ELLIPTA 1 INHALATION DAILY. PROAIR 2 PUFFS Q 4-6 HOURS ONLY P.R.N. Code(s): J44.9 - Chronic obstructive pulmonary disease, unspecified Plan: Currently being followed by Pulmonary, stable controlled on present inhalers, up-to-date with her pneumococcal vaccination, COVID vaccine gets yearly flu shots. (6) Allergic rhinitis: Comment: Stable , Continue same regimen , Flonase, 2 sprays in each nostril daily , Zyrtec 10 mg po once a day as needed . Montelukast 10 mg daily Code(s): J30.9 - Allergic rhinitis, unspecified Plan: Currently on cetirizine 10 mg daily, uses fluticasone nasal spray, and montelukast 10 mg daily (7) Dyslipidemia: Code(s): E78.5 - Hyperlipidemia, unspecified Plan: Reviewed recent fasting lipid profile with patient with levels within normal . Continue with atorvastatin 10 mg daily , in addition to adherence to low- cholesterol diet and regular exercise, at least 30 minutes 3 to 4 times a week. Advised patient to make healthy food choices, eat more fruits, vegetables, whole grains, wild caught fish and low-fat dairy. Limit amount of meat and fried or fatty food products, as well as processed foods and fast foods. Follow-up scheduled with repeat fasting lipid panel in 3 months. (8) Hammertoe of second toe of right foot: Code(s): M20.41 - Other hammer toe(s) (acquired), right foot Plan: Currently being followed by Dr. Herbert, patient opts not to get this surgically corrected Orders: Orders Lipid Panel 3 Months E03.9 - Hypothyroidism, unspecified, E11.9 - Type 2 diabetes mellitus without complications, I10 - Essential (primary) hypertension Hemoglobin A1c 3 Months E03.9 - Hypothyroidism, unspecified, E11.9 - Type 2 diabetes mellitus without complications, I10 - Essential (primary) hypertension Alanine Aminotransferase 3 Months E03.9 - Hypothyroidism, unspecified, E11.9 - Type 2 diabetes mellitus without complications, I10 - Essential (primary) hypertension Aspartate Amino Transferase 3 Months E03.9 - Hypothyroidism, unspecified, E11.9 - Type 2 diabetes mellitus without complications, I10 - Essential (primary) hypertension Basic Metabolic Panel Fasting 3 Months E03.9 - Hypothyroidism, unspecified, E11.9 - Type 2 diabetes mellitus without complications, I10 - Essential (primary) hypertension Free T4 (Free Thyroxine) 3 Months E03.9 - Hypothyroidism, unspecified, E11.9 - Type 2 diabetes mellitus without complications, I10 - Essential (primary) hypertension Thyroid Stimulating Hormone 3 Months E03.9 - Hypothyroidism, unspecified, E11.9 - Type 2 diabetes mellitus without complications, I10 - Essential (primary) hypertension Coding Level of Care Code Est Pt Prev Care >65y(73781) Diagnoses Annual visit for general adult medical examination with abnormal findings Z0 0.01 Type 2 diabetes mellitus without complication, without long-term current use of insulin E11.9 Essential hypertension I10 Acquired hypothyroidism E03.9 COPD (chronic obstructive pulmonary disease) J44.9 Allergic rhinitis J30.9 Dyslipidemia E78.5 Hammertoe of second toe of right foot M20.41 Additional Codes RICA-7 Assessment Billing - RICA-7 Assessment Tool: RICA-7 Assessment [id number] ([id number])
[2022-10-26 08:07] VITALS: BP 152/68; PULSE 58; O2SAT 96; BMI 21.4
== END 2022-10-26 08:56 | disposition home or self-care (01) ==
PROVIDERS: Visit Provider Internal Medicine
DX: Z00.00 Encounter for general adult medical examination without abnormal findings (principal); E11.9 Type 2 diabetes mellitus without complications; I10 Essential (primary) hypertension; E03.9 Hypothyroidism, unspecified; J44.9 Chronic obstructive pulmonary disease, unspecified; J30.9 Allergic rhinitis, unspecified; E78.5 Hyperlipidemia, unspecified; M20.41 Other hammer toe(s) (acquired), right foot
CPT/HCPCS: 99397

== ENCOUNTER 2023-01-11 10:20 | Outpatient (AMB) | payer MEDICARE, OTHER, SELFPAY ==
--- NOTE | 2023-01-11 10:28 | MHC.OFFVIS ---
Intake Vital Signs 01/11/23 10:30 Height 5 ft 2 in Weight 165 lb BMI 30.2 BP 120/58 L Blood Pressure Location Lt brachial Position Sitting Pulse 78 Pulse Source Pulse Oximeter Pulse Oximetry (%) 98 Oxygen Delivery Method Room Air Intake Visit Reasons: COPD Intake Note: pt is here for follow up of copd and states she feels good with breathing. Family Day Care Worker Required: No Allergies levofloxacin [Levaquin] Adverse Reaction (Unknown, Verified 01/11/23 10:38) achilles tendon issue bee stings Allergy (Unknown, Uncoded 01/11/23 10:38) anaphylaxis stainless steel Allergy (Unknown, Uncoded 01/11/23 10:38) severe Derm reaction chlorine Adverse Reaction (Uncoded 01/11/23 10:38) Difficulty Breathing Medication List - Last Reviewed 01/11/23 by PADMA Shelby aspirin (Adult Low Dose Aspirin) 81 mg PO DAILY atorvastatin 10 mg PO DAILY biotin 5,000 mcg PO DAILY cetirizine (Zyrtec) 10 mg PO DAILY cholecalciferol (vitamin D3) 50 mcg PO DAILY diltiazem HCl 180 mg PO QAM flaxseed oil 1,000 mg PO DAILY fluticasone propionate 50 mcg/actuation (Allergy Relief (fluticasone)) 2 sprays intranasal DAILY 90 days glucosamine sulfate 1,000 mg PO BID Incruse Ellipta 62.5 mcg/actuation (umeclidinium) 1 inh PO DAILY NS irbesartan 150 mg PO BEDTIME levothyroxine 100 mcg PO DAILY metformin 1,000 mg PO BID montelukast 10 mg PO DAILY nystatin-triamcinolone 100,000-0.1 unit/g-% 1 appl topical DAILY PRN omega 0-ver-hmy-fish oil 300-1,000 mg (Fish Oil) 1 cap PO DAILY psyllium husk (Metamucil) 1 tbsp PO DAILY Symbicort 80-4.5 mcg/actuation (budesonide-formoterol) 2 puffs PO BID NS Do you need a note to return to daycare/school/sports/work: No HPI COPD HPI Details TIERNEY is 82 years old female, very pleasant with a long-time history of bronchial asthma/allergic rhinitis. Over the past many years she has developed features of chronic obstructive pulmonary disease. It remains well controlled and stable with combination of Symbicort and Incruse Ellipta. Nasal allergies are controlled with use of montelukast 10 mg daily and Flonase, and she also takes Zyrtec 10 mg daily. Her breathing remains stable she has had no acute attacks of asthma. Only occasional shortness of breath at rest, and she gets short of breath when she goes up and down stairs . 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 Brother No problems noted. Sister No problems noted. Sister No problems noted. Sister No problems noted. Son No problems noted. Daughter No problems noted. Social History Housing: House Are you a primary manager progressive care to a significant other at home: No Do you presently have visiting nurse or other home services: No Alcohol intake: current Patient Tobacco Use Status: Never used Tobacco e-Cigarette/Vaping Use: Never Used service: No Current occupational status: retired Cognitive needs: No Hearing needs: No Vision needs: No Review of Systems Const All systems reviewed & are unremarkable except as noted in HPI and below Eyes Reports no additional complaints ENT Reports nasal congestion and Reports nasal discharge (Off and on) Card Denies chest pain, Denies irregular heart rhythm and Denies leg edema Resp Reports as per HPI GI Reports no additional complaints Reports no additional complaints Musc Reports no additional complaints Skin/Breast Reports system reviewed and no additional complaints, except as documented Neuro Reports no additional complaints Psych Reports no additional complaints Physical Exam Vital Signs: Last Vital Signs Pulse 78 01/11/23 10:30 BP 120/58 L 01/11/23 10:30 Pulse Ox 98 01/11/23 10:30 Oxygen Delivery Method Room Air 01/11/23 10:30 BMI result Body Mass Index 30.2 Const General: comfortable, no acute distress, alert and awake Orientation/consciousness: patient oriented x3 HEENT Head: Yes normal to inspection General nose exam: No nasal polyps present, No nasal discharge present and Other nasal findings present (Mild nasal congestion) Face and sinus: Yes sinuses nontender Mouth: oropharynx normal (No thrush noted at this time) Throat: Yes posterior oropharynx normal Eyes General: appearance normal, both eyes and all related structures Neck Neck: Yes normal visual inspection, Yes no lymphadenopathy, Yes trachea midline and Yes no JVD Thyroid: Thyroid normal Chest Chest palpation & inspection: normal inspection of the chest, normal palpation of entire chest wall and no tenderness Resp Other: Percussion note resonant, breath sounds are equal on both sides is moderately distant with prolonged expiratory phase. No wheezes rhonchi or crepitations are heard. Cardio Palpation: normal PMI Rate: regular rate Rhythm: regular rhythm Heart sounds: no gallops and no murmurs GI Palpation (GI): Soft to palpation, nontender, No hepatosplenomegaly present and no masses Auscultation: normal bowel sounds Back/Spine/Pelvis Thoracic/Lumbar Spine: thoracic and lumbar spine normal to inspection Skin General skin exam: no rashes or lesions noted Neuro General: patient oriented x3 and no focal motor deficits Cranial nerves: Yes CN's II-XII intact bilaterally Extrem General: Yes normal to inspection, Yes no clubbing, cyanosis or edema and Yes no calf tenderness Psych Appearance: grossly normal and well kempt Speech and movement: Normal speech and movement present Office Procedures Spirometry Testing Spirometry Comments: Spirometry done in the office, Dr. Gibson has the results results scanned to her chart. 31507- Spirometry Results Reviewed Results Reviewed: SPIROMETRY FVC= 88 % FEV1= 66 % FEF 25-75 = 38 % Assessment & Plan Assessment & Plan (1) COPD (chronic obstructive pulmonary disease): Comment: 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 Has remained Stable and controlled . SPIROMETRY NUMBERS TODAY C/W MODERATELY SEVERE OBSTRUCTIVE AIRWAY DISORDER. ACTUALLY NUMBERS COMPARED TO THE RESULTS IN 2006, ARE SOMEWHAT IMPROVED. [place] : CONTINUE SYMBICORT 80-4.5 2 PUFFS B.I.D.(May try just one inh BID ) INCRUSE ELLIPTA 1 INHALATION DAILY. PROAIR 2 PUFFS Q 4-6 HOURS ONLY P.R.N. Code(s): J44.9 - Chronic obstructive pulmonary disease, unspecified (2) Allergic rhinitis: Comment: Stable , Continue same regimen , Flonase, 2 sprays in each nostril daily , Zyrtec 10 mg po once a day as needed . Montelukast 10 mg daily Code(s): J30.9 - Allergic rhinitis, unspecified Orders: Orders AMB Spirometry Testing Today J44.9 - Chronic obstructive pulmonary disease, unspecified Coding Level of Care Code Est Pt Level 3 (25786) Diagnoses COPD (chronic obstructive pulmonary disease) J44.9 Allergic rhinitis J30.9 CPT Codes Spirometry - CPT: 50648- Spirometry ([id number])
[2023-01-11 10:30] VITALS: BP 120/58; PULSE 78; O2SAT 98; BMI 30.2
== END 2023-01-11 13:32 | disposition home or self-care (01) ==
PROVIDERS: PCP Internal Medicine; Visit Provider Internal Medicine
DX: J44.9 Chronic obstructive pulmonary disease, unspecified (principal); J30.9 Allergic rhinitis, unspecified
CPT/HCPCS: 94010; 99213

== ENCOUNTER → 2023-01-11 10:20 | Outpatient (BNVA) | payer MEDICARE, OTHER, SELFPAY | PROVIDERS: Visit Provider Internal Medicine | DX: J44.9 Chronic obstructive pulmonary disease, unspecified (principal); J30.9 Allergic rhinitis, unspecified | CPT/HCPCS: 94010; 99212 ==

== ENCOUNTER 2023-01-12 06:58 | Outpatient (REF) | payer MEDICARE, OTHER, SELFPAY ==
[2023-01-12 07:33] LABS: Estimated Average Glucose 105 mg/dL; Hemoglobin A1c % 5.3 % (<6.0)
[2023-01-12 07:59] LABS: Alanine Aminotransferase 16 U/L (0-31); Anion Gap 15 (12-20); Aspartate Amino Transferase 17 U/L (5-31); Blood Urea Nitrogen 23 mg/dL (9-16); Calcium 10.5 mg/dL (8.4-10.2); Carbon Dioxide 22 mmol/L (22-29); Chloride 111 mmol/L (96-108); Cholesterol 174 mg/dL (<200); Estimated Glomerular Filt Rate > 60; Glucose Fasting 99 mg/dL (60-99); HDL Cholesterol 71 mg/dL (>40); LDL Cholesterol Calculated 87 mg/dL (<100); Potassium 5.6 mmol/L (3.3-5.1); Sodium 142 mmol/L (135-145); Triglycerides 84 mg/dL (<150)
[2023-01-12 08:16] LABS: Free T4 (Free Thyroxine) 1.16 ng/dL (0.71-1.85); Thyroid Stimulating Hormone 0.39 uIU/mL (0.32-4.0)
== END 2023-01-12 06:59 | disposition home or self-care (01) ==
LOC: HO.LAB 06:58
PROVIDERS: PCP Internal Medicine; Visit Provider Internal Medicine
DX: E11.9 Type 2 diabetes mellitus without complications (principal); I10 Essential (primary) hypertension; E03.9 Hypothyroidism, unspecified
CPT/HCPCS: 36415; 80048; 80061; 83036; 84439; 84443; 84450; 84460

== ENCOUNTER 2023-02-10 11:12 | Outpatient (AMB) | payer MEDICARE, OTHER, SELFPAY ==
--- NOTE | 2023-02-10 11:35 | MHC.PC.OV ---
Vital Signs 02/10/23 11:36 Height 5 ft 2 in Weight 166 lb 8 oz BMI 30.4 BP 120/58 L Blood Pressure Location Rt brachial Position Sitting Pulse 56 Pulse Source Pulse Oximeter Pulse Oximetry (%) 95 Oxygen Delivery Method Room Air Intake Visit Reasons: 3 month follow up Intake Note: pt is here to follow up for her lab results Allergies bee pollen [bee stings] Allergy (Severe, Verified 02/13/23 01:19) Anaphylaxis levofloxacin [Levaquin] Adverse Reaction (Unknown, Verified 02/13/23 01:19) achilles tendon issue stainless steel Allergy (Unknown, Uncoded 02/13/23 01:19) severe Derm reaction chlorine Adverse Reaction (Uncoded 02/13/23 01:19) Difficulty Breathing Medication List - Last Reconciled 02/13/23 by Shilpi Austin MD aspirin (Adult Low Dose Aspirin) 81 mg PO DAILY atorvastatin 10 mg PO DAILY biotin 5,000 mcg PO DAILY cetirizine (Zyrtec) 10 mg PO DAILY cholecalciferol (vitamin D3) 50 mcg PO DAILY diltiazem HCl 180 mg PO QAM flaxseed oil 1,000 mg PO DAILY fluticasone propion-salmeterol 250-50 mcg/dose (Wixela Inhub) 1 inh inhalation BID 30 days fluticasone propionate 50 mcg/actuation (Allergy Relief (fluticasone)) 2 sprays intranasal DAILY 90 days glucosamine sulfate 1,000 mg PO BID Incruse Ellipta 62.5 mcg/actuation (umeclidinium) 1 inh PO DAILY NS irbesartan 150 mg PO BEDTIME levothyroxine 100 mcg PO DAILY metformin 1,000 mg PO BID montelukast 10 mg PO DAILY nystatin-triamcinolone 100,000-0.1 unit/g-% 1 appl topical DAILY PRN omega 9-vgw-dvk-fish oil 300-1,000 mg (Fish Oil) 1 cap PO DAILY psyllium husk (Metamucil) 1 tbsp PO DAILY Symbicort 80-4.5 mcg/actuation (budesonide-formoterol) 2 puffs PO BID NS Tobacco use date assessed: 02/10/23 Fall risk assessment: No Falls in past year Last assessed Fall Risk: 02/10/23 Dental Screening Dental Screen Date: 02/10/23 Did you have a dental visit in the last 12 months?: Yes Did you have a dental problem in the last 6 months where you did not have access to dental care?: No Was dental information given to patient?: Patient has dentist HPI 3 month follow up HPI Details 82-year-old lady with hypertension, dyslipidemia, diabetes mellitus, and COPD, here today for follow-up. She had recent fasting labs done which showed presence of elevated serum potassium at 5.6, and elevated serum calcium. Patient however still states that she is feeling well, with no symptoms at present time. 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 Brother No problems noted. Sister No problems noted. Sister No problems noted. Sister No problems noted. Son No problems noted. Daughter No problems noted. Housing: House Are you a primary nurse wound care to a significant other at home: No Do you presently have visiting nurse or other home services: No Alcohol intake: current Patient Tobacco Use Status: Never used Tobacco e-Cigarette/Vaping Use: Never Used service: No Current occupational status: retired Cognitive needs: No Hearing needs: No Vision needs: No Questionnaire PHQ-9 Over the last 2 weeks, how often have you been bothered by any of the following problems? Depression Screening Interpretation: Negative Depression Screening Done: Yes Source: Developed by Drs. Rod Franz, Shy Velez, Dev Piper and colleagues, with an educational jag from [employer]. Thrive Questionnaire Date Thrive assessed: 10/26/22 RICA-7 AMB Questionnaire RICA-7 Date RICA - 7 assessed: 10/26/22 Source: Developed by Drs. Rod Franz, Shy Velez, Dev Piper and colleagues, with an educational jag from [employer]. Review of Systems Const All systems reviewed & are unremarkable except as noted in HPI and below Eyes Reports no additional complaints ENT Reports no additional complaints Card Denies chest pain, Denies irregular heart rhythm and Denies leg edema Resp Reports as per HPI GI Reports no additional complaints Reports no additional complaints Musc Reports no additional complaints Skin/Breast Reports system reviewed and no additional complaints, except as documented Neuro Reports no additional complaints, Denies Abnormal speech present and Denies Sensory deficit (Neuro) Psych Reports no additional complaints Endo Reports no additional complaints Aller/Immun Reports no additional complaints Physical exam (Primary Care) Vital Signs: Last Vital Signs Pulse 56 02/10/23 11:36 BP 120/58 L 02/10/23 11:36 Pulse Ox 95 02/10/23 11:36 Oxygen Delivery Method Room Air 02/10/23 11:36 BMI result Body Mass Index 30.4 Tobacco/Smoking Status: Tobacco use Status Tobacco use date assessed 02/10/23 02/10/23 11:44 Patient Tobacco Use Status Never used Tobacco 02/10/23 11:36 e-Cigarette/Vaping Use Never Used 02/10/23 11:36 Depression Screening Interpretation: Negative Thrive Assessment: Date of Thrive Assessment Date Thrive assessed 10/26/22 02/10/23 11:36 Const Other: Alert oriented x3, no acute distress noted, ambulatory with normal gait Orientation/consciousness: patient oriented x3 [facility] Head: Yes normocephalic and Yes atraumatic General nose exam: Normal external nose present and No nasal discharge present Face and sinus: Yes face symmetric Mouth: moist mucous membranes Eyes General: appearance normal, both eyes and all related structures Neck Neck: Yes full ROM, Yes no lymphadenopathy and Yes supple Resp Auscultation: clear to auscultation bilaterally Cardio Other: S1-S2 present regular rate and rhythm GI Palpation (GI): Soft to palpation, nontender and no guarding Auscultation: normal bowel sounds Skin General skin exam: no rashes or lesions noted Neuro General: patient oriented x3, gait normal, tone normal, moves all extremities, no focal motor deficits and CN's II-XI intact bilaterally Speech: No Abnormal speech present Sensory Exam: No Sensory deficit (Neuro) Extrem General: Yes full ROM, Yes no joint enlargement, Yes no clubbing, cyanosis or edema, Yes no calf tenderness and Yes normal gait Right lower extremity: foot (Her hammertoe right 2nd toe, bunion on right) Psych Appearance: grossly normal and well kempt Mental Status: mental status grossly normal Speech and movement: Normal speech and movement present Affect: normal affect Attitude: cooperative Thought process: Normal thought process present Thought content: Normal thought content present Results Reviewed Results Reviewed: ENTERED: 01/12/[address]: ORDERED: Met Prof Fast, AST, ALT, Lipid Panel, Free T4, TSH Test Result Flag Reference Site Sodium 142 135-145 mmol/L Potassium 5.6 H 3.3-5.1 mmol/L CL 111 H 96-108 mmol/L CO2 22 22-29 mmol/L Gap 15 12-20 BUN 23 H 9-16 mg/dL Creat 0.90 0.5-1.4 mg/dL EGFR > 60 NOTE: For -[place]serratian individuals, multiply the result by 1.210. Chronic Kidney Disease: Estimated GFR < 60 mL/min/1.73m2 Severe Kidney Disease: Estimated GFR < 15 mL/min/1.73m2 FBS 99 60-99 mg/dL CA 10.5 H 8.4-10.2 mg/dL AST (GOT) 17 5-31 U/L ALT (GPT) 16 0-31 U/L Triglyceride 84 <150 mg/dL Desirable Triglyceride: less than 150 mg/dL Borderline High Triglyceride 150-199 mg/dL High Triglyceride: 200-499 mg/dL Very High Triglyceride: greater than or equal to 5OO mg/dL Cholesterol 174 <200 mg/dL Desirable Cholesterol: less than 200 mg/dL Borderline High Cholesterol: 200-239 mg/dL High Cholesterol: greater than 239 mg/dL LDL Calculated 87 <100 mg/dL Desirable LDL: less than 100 mg/dL Near Optimal/Above Optimal LDL: 110-129 mg/dL Borderline High LDL: 130-159 mg/dL High LDL: 160-189 mg/dL Very High LDL: greater than or equal to 190 mg/dL HDL 71 >40 mg/dL Desirable HDL: greater than 40 mg/dL Note: This HDL assay may give artificially low results in patients with liver disease. Free T4 1.16 0.71-1.85 ng/dL TSH 3rd Gen. 0.39 0.32-4.0 uIU/mL TSH 3rd Generation ([facility]) - Assessment and Plan Assessment & Plan (1) Hypercalcemia: Code(s): E83.52 - Hypercalcemia Plan: Ordered ionized calcium level as well as intact parathyroid hormone levels. Advised to stop taking calcium supplements (2) Essential hypertension: Code(s): I10 - Essential (primary) hypertension Plan: Blood pressure at goal of less than 130/80. Continue with current medication. Reinforced importance of following a low sodium diet, getting regular exercise, and lowering stress levels. (3) Hyperkalemia: Code(s): E87.5 - Hyperkalemia Plan: Repeat another basic metabolic panel, advised to avoid avoid eating a lot of potassium rich foods like bananas, oranges, green leafy vegetables (4) Type 2 diabetes mellitus without complication, without long-term current use of insulin: Code(s): E11.9 - Type 2 diabetes mellitus without complications Plan: Recent lab results reviewed with patient, with sugar and hemoglobin A1c stable and at goal . Continue with metformin a 1000 mg 1 tablet taken twice a day, and continue to check fasting blood sugar at home, maintain log and bring to next appointment for review. Reinforced diabetic diet and regular exercise with patient. Counseled regarding importance of yearly diabetes retinopathy screening. Patient advised to inspect feet daily, for any signs of injury, callus or infection. Compliance with diet and regular exercise again stressed. Blood pressure goal is less than 130/80, goal LDL is less than 100 and goal hemoglobin A1c is less than 7% follow-up appointment made in-3--months Orders: Orders Calcium, Ionized 02/10/23 E83.52 - Hypercalcemia, E87.5 - Hyperkalemia, I10 - Essential (primary) hypertension Basic Metabolic Panel Fasting 02/10/23 E83.52 - Hypercalcemia, E87.5 - Hyperkalemia, I10 - Essential (primary) hypertension PTHI 02/10/23 E83.52 - Hypercalcemia, E87.5 - Hyperkalemia, I10 - Essential (primary) hypertension Coding Level of Care Code Est Pt Level 3 (76087) Diagnoses Hypercalcemia E83.52 Essential hypertension I10 Hyperkalemia E87.5 Type 2 diabetes mellitus without complication, without long-term current use of insulin E11.9
[2023-02-10 11:36] VITALS: BP 120/58; PULSE 56; O2SAT 95; BMI 30.4
== END 2023-02-10 12:58 | disposition home or self-care (01) ==
PROVIDERS: PCP Internal Medicine; Visit Provider Internal Medicine
DX: E83.52 Hypercalcemia (principal); I10 Essential (primary) hypertension; E87.5 Hyperkalemia; E11.9 Type 2 diabetes mellitus without complications
CPT/HCPCS: 99213

== ENCOUNTER 2023-02-25 06:19 | Outpatient (REF) | payer MEDICARE, OTHER, SELFPAY ==
[2023-02-25 08:00] LABS: Anion Gap 13 (12-20); Blood Urea Nitrogen 25 mg/dL (9-16); Calcium 9.9 mg/dL (8.4-10.2); Carbon Dioxide 24 mmol/L (22-29); Chloride 110 mmol/L (96-108); Estimated Glomerular Filt Rate 57; Glucose Fasting 101 mg/dL (60-99); Potassium 4.7 mmol/L (3.3-5.1); Sodium 142 mmol/L (135-145)
[2023-03-01 15:49] LABS: Calcium, Ionized 5.3 mg/dL (4.7-5.5)
== END 2023-02-25 06:20 | disposition home or self-care (01) ==
LOC: HO.LAB 06:19
PROVIDERS: PCP Internal Medicine; Visit Provider Internal Medicine
DX: I10 Essential (primary) hypertension (principal); E83.52 Hypercalcemia; E87.5 Hyperkalemia
CPT/HCPCS: 36415; 80048; 82330

== ENCOUNTER 2023-03-12 10:30 | Outpatient (AMB) | payer MEDICARE, OTHER, SELFPAY ==
[2023-03-12 12:29] VITALS: BP 128/78; PULSE 82; TEMP 36.8; O2SAT 93
--- NOTE | 2023-03-12 12:29 | AM.OFFWIN_ITS ---
Intake Vital Signs 03/12/23 12:29 Height 5 ft 2 in Weight 164 lb BMI 30.0 BP 128/78 Blood Pressure Location Lt brachial Position Sitting Pulse 82 Pulse Source Pulse Oximeter Temp 98.2 F Temp Source Oral Pulse Oximetry (%) 93 Oxygen Delivery Method Room Air Intake Visit Reasons: ESt/congestion/sob (lobby masked) Intake Note: pt is here today for congestion and sob started Wednesday. She took Doxycyline Wednesday, and is still wrking on it. Patient Tobacco Use Status: Never used Tobacco Allergies bee pollen [bee stings] Allergy (Severe, Verified 03/12/23 12:34) Anaphylaxis levofloxacin [Levaquin] Adverse Reaction (Unknown, Verified 03/12/23 12:34) achilles tendon issue stainless steel Allergy (Unknown, Uncoded 03/12/23 12:34) severe Derm reaction chlorine Adverse Reaction (Uncoded 03/12/23 12:34) Difficulty Breathing Do you need a note to return to daycare/school/sports/work: No HPI ESt/congestion/sob (lobby masked) HPI Details 82 year old female patient presents toda with chest and nasal congestion for the last 7 days. This started with a scratchy throat and progressed to upper respiratory symptoms. Denies fever/chills. History of well- controlled COPD, managed by Dr. Gibson. She has been taking Dayquil/Nyquil and also took an old Doxycycline rx she had left over from the summer. Additionally, she takes Citirizine, Flonase, and Symbicort. S/e from albuterol inhaler. 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 Brother No problems noted. Sister No problems noted. Sister No problems noted. Sister No problems noted. Son No problems noted. Daughter No problems noted. Social History Housing: House Are you a primary healthcare receptionist to a significant other at home: No Do you presently have visiting nurse or other home services: No Alcohol intake: current Patient Tobacco Use Status: Never used Tobacco e-Cigarette/Vaping Use: Never Used service: No Current occupational status: retired Cognitive needs: No Hearing needs: No Vision needs: No Review of Systems Const All systems reviewed & are unremarkable except as noted in HPI and below Physical Exam Vital Signs: Last Vital Signs Temp 98.2 F 03/12/23 12:29 Pulse 82 03/12/23 12:29 BP 128/78 03/12/23 12:29 Pulse Ox 93 03/12/23 12:29 Oxygen Delivery Method Room Air 03/12/23 12:29 BMI result Body Mass Index 30.0 Const General: cooperative and no acute distress HEENT Head: Yes normal to inspection Ears: hearing grossly normal bilaterally General nose exam: Normal external nose present and Nasal discharge present mucoid Face and sinus: Yes normal facial exam Mouth: Normal oral and palatal mucosa present Throat: Yes posterior oropharynx normal Neck Neck: Yes no lymphadenopathy Resp Effort & Inspection: normal respiratory effort and Actively coughing (clear sputum) Quality: productive Auscultation: wheezes upper bilaterally Cardio Palpation: normal PMI Rate: regular rate Rhythm: regular rhythm Skin General skin exam: no rashes or lesions noted Extrem General: Yes capillary refill normal and Yes no clubbing, cyanosis or edema Psych Appearance: grossly normal Mental Status: mental status grossly normal Speech and movement: Normal speech and movement present Assessment & Plan Assessment & Plan (1) Upper respiratory infection: Code(s): J06.9 - Acute upper respiratory infection, unspecified Qualifiers: URI type: unspecified URI Qualified Code(s): J06.9 - Acute upper respiratory infection, unspecified Plan: Given COPD history and ongoing upper respiratory symptoms, will start patient on short course of prednisone and benzonatate. She should stop taking the old abx at home and I will start her on Amoxicillin, which she states she has done well on previously. She can continue to use otc cold/flu products (non-nsiads) and inhalers as ordered. If she does not begin to improve, or certainly if she worse ns or develops shortness of breath, she should go to the ED for evaluation. She agrees to plan. Medications: New amoxicillin 500 mg PO BID 10 tabs 0RF 5 days J06.9 - Acute upper respiratory infection, unspecified benzonatate 100 mg PO BID PRN 14 caps 0RF cough 7 days R05.9 - Cough, unspecified prednisone 20 mg PO BID 6 tabs 0RF 3 days Coding Level of Care Code Est Pt Level 3 (66346) Diagnoses Upper respiratory tract infection, unspecified type J06.9 URI type: unspecified URI
== END 2023-03-12 13:42 | disposition home or self-care (01) ==
PROVIDERS: PCP Internal Medicine; Visit Provider Nurse Practitioner Family
DX: J06.9 Acute upper respiratory infection, unspecified (principal)
CPT/HCPCS: 99213

== ENCOUNTER 2023-06-25 09:03 | Outpatient (REF) | payer MEDICARE, OTHER, SELFPAY ==
--- NOTE | ~2023-06-25 | MM_ITS ---
EXAMINATION: MM SCREENING DIGITAL BREAST TOMOSYNTHESIS, BILATERAL CLINICAL INFORMATION: Screening. Asymptomatic. COMPARISON: Mammography: This study is compared with prior exams dating back to 2018. TECHNIQUE: Digital breast tomosynthesis is performed in both the craniocaudal and mediolateral oblique views along with computer-aided detection (CAD). Synthesized 2D images are generated from the tomosynthesis. FINDINGS: There are scattered areas of fibroglandular density (ACR BI-RADS breast composition Category b). There is a focal asymmetry in the upper inner quadrant of the left breast at a middle depth. Additional mammographic and targeted sonographic imaging of this region is advised. In the right breast, there are no significant masses, abnormal calcifications, or other abnormalities. Benign calcifications are present in each breast. MM/MM tomosynthesis screening BI IMPRESSION: Focal asymmetry of the left breast warrants additional mammographic and targeted sonographic imaging. No mammographic signs of malignancy right breast. . ASSESSMENT: BI-RADS BI-RADS 0 - Incomplete: Needs additional Imaging. RECOMMENDATION: 1. Additional views of the left breast 2. Targeted ultrasound if warranted after review of the additional views. 3. Radiology department staff will contact the patient for additional imaging. Additional Imaging required This examination should not preclude the clinical evaluation of a suspicious palpable abnormality. This patient's information was entered into a reminder system with a target due date for their next mammogram.
== END 2023-06-25 09:04 | disposition home or self-care (01) ==
LOC: HO.MAMMO 09:03
PROVIDERS: PCP Internal Medicine; Visit Provider Internal Medicine
DX: Z12.31 Encounter for screening mammogram for malignant neoplasm of breast (principal)
CPT/HCPCS: 77063; 77067

== ENCOUNTER → 2023-06-25 09:30 | Outpatient (BNV) | payer MEDICARE, OTHER, SELFPAY | PROVIDERS: PCP Internal Medicine; Visit Provider Radiology Diagnostic Radiology | DX: Z12.31 Encounter for screening mammogram for malignant neoplasm of breast (principal) | CPT/HCPCS: 77063; 77067 ==

== ENCOUNTER 2023-07-09 06:08 | Outpatient (REF) | payer MEDICARE, OTHER, SELFPAY ==
[2023-07-09 08:05] LABS: Estimated Average Glucose 114 mg/dL; Hemoglobin A1C 106.9738 umol/L; Hemoglobin A1c % 5.6 % (<6.0)
[2023-07-09 08:29] LABS: Creatinine Urine 39.88 mg/dL; Microalbumin Urine < 5.0 mg/L
[2023-07-09 08:38] LABS: Alanine Aminotransferase 13 U/L (0-31); Anion Gap 14 (12-20); Aspartate Amino Transferase 19 U/L (5-31); Blood Urea Nitrogen 26 mg/dL (9-16); Calcium 9.8 mg/dL (8.4-10.2); Carbon Dioxide 22 mmol/L (22-29); Chloride 111 mmol/L (96-108); Cholesterol 158 mg/dL (<200); Estimated Glomerular Filt Rate 47; Glucose Fasting 93 mg/dL (60-99); HDL Cholesterol 73 mg/dL (>40); Potassium 5.1 mmol/L (3.3-5.1); Sodium 142 mmol/L (135-145)
[2023-07-09 08:54] LABS: Free T4 (Free Thyroxine) 1.07 ng/dL (0.71-1.85); Thyroid Stimulating Hormone 0.22 uIU/mL (0.32-4.0); Vitamin D 25-OH Total 40.2 ng/mL (>30)
[2023-07-09 09:06] LABS: LDL Cholesterol Calculated 67 mg/dL (<100); Triglycerides 93 mg/dL (<150)
== END 2023-07-09 06:09 | disposition home or self-care (01) ==
LOC: HO.LAB 06:08
PROVIDERS: PCP Internal Medicine; Visit Provider Internal Medicine
DX: E78.5 Hyperlipidemia, unspecified (principal); E03.9 Hypothyroidism, unspecified; E11.9 Type 2 diabetes mellitus without complications; I10 Essential (primary) hypertension; Z78.0 Asymptomatic menopausal state
CPT/HCPCS: 36415; 80048; 80061; 82043; 82306; 82570; 83036; 84439; 84443; 84450; 84460

== ENCOUNTER 2023-07-12 09:58 | Outpatient (AMB) | payer MEDICARE, OTHER, SELFPAY ==
[2023-07-12 10:19] VITALS: BP 110/60; PULSE 57; O2SAT 96
--- NOTE | 2023-07-12 10:19 | MHC.OFFVIS ---
Vital Signs 07/12/23 10:19 Height 5 ft 2 in Weight 164 lb 3.91 oz BMI 30.0 BP 110/60 Blood Pressure Location Lt brachial Position Sitting Pulse 57 Pulse Source Pulse Oximeter Pulse Oximetry (%) 96 Oxygen Delivery Method Room Air Intake Visit Reasons: copd Allergies bee pollen [bee stings] Allergy (Severe, Verified 07/12/23 10:32) Anaphylaxis levofloxacin [Levaquin] Adverse Reaction (Unknown, Verified 07/12/23 10:32) achilles tendon issue stainless steel Allergy (Unknown, Uncoded 07/12/23 10:32) severe Derm reaction chlorine Adverse Reaction (Uncoded 07/12/23 10:32) Difficulty Breathing Medication List - Last Reconciled 07/12/23 by Anam Gibson MD aspirin (Adult Low Dose Aspirin) 81 mg PO DAILY atorvastatin 10 mg PO DAILY benzonatate 100 mg PO BID PRN 7 days biotin 5,000 mcg PO DAILY cetirizine (Zyrtec) 10 mg PO DAILY chlorpheniramine-pseudoephed 2-30 mg/5 mL 10 mL PO Q4-6H PRN cholecalciferol (vitamin D3) 50 mcg PO DAILY diltiazem HCl CD 180 mg PO QAM flaxseed oil 1,000 mg PO DAILY fluticasone propion-salmeterol 250-50 mcg/dose (Wixela Inhub) 1 inh inhalation BID 30 days fluticasone propionate 50 mcg/actuation (Allergy Relief (fluticasone)) 2 sprays intranasal DAILY 90 days glucosamine sulfate 1,000 mg PO BID Incruse Ellipta 62.5 mcg/actuation (umeclidinium) 1 inh PO DAILY NS irbesartan 150 mg PO BEDTIME levothyroxine 100 mcg PO DAILY metformin 1,000 mg PO BID montelukast 10 mg PO DAILY nystatin-triamcinolone 100,000-0.1 unit/g-% 1 appl topical DAILY PRN omega 8-joa-zkp-fish oil 300-1,000 mg (Fish Oil) 1 cap PO DAILY psyllium husk (Metamucil) 1 tbsp PO DAILY Do you need a note to return to daycare/school/sports/work: No HPI HPI copd: Details: HEALING AND IS 82 YEARS OLD VERY PLEASANT FEMALE, COMES AFTER 6 MONTHS FOR ROUTINE FOLLOW-UP FOR HER COPD/ALLERGIC RHINITIS. SHE WAS SICK WITH ACUTE RESPIRATORY INFECTION AROUND THE [place] TIME, TREATED IN THE URGENT CARE CLINIC, WITH A COURSE OF ANTIBIOTIC AND STEROIDS. GOT BETTER EXCEPT FOR GENERAL WEAKNESS FOR A FEW WEEKS. NOW DOING VERY WELL HAS NO ACTIVE SYMPTOMS. USING INCRUSE AND WIXELA REGULARLY. SHE DOES NOT HAVE ANY RESCUE INHALER ON HAND, SHE HAS HISTORY OF ALLERGY TO THE ALBUTEROL HFA , USED TO HAVE PROVENTIL, BUT NOW SHE CAN NOT GET THAT. NASAL CONGESTION IS MILD AND INTERMITTENT. 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 Brother No problems noted. Sister No problems noted. Sister No problems noted. Sister No problems noted. Son No problems noted. Daughter No problems noted. Social History Housing: House Are you a primary health care aide to a significant other at home: No Do you presently have visiting nurse or other home services: No Alcohol intake: current Patient Tobacco Use Status: Never used Tobacco e-Cigarette/Vaping Use: Never Used service: No Current occupational status: retired Cognitive needs: No Hearing needs: No Vision needs: No Review of Systems Const All systems reviewed & are unremarkable except as noted in HPI and below Eyes Reports no additional complaints ENT Reports nasal congestion and Reports nasal discharge (Off and on) Card Denies chest pain, Denies irregular heart rhythm and Denies leg edema Resp Reports as per HPI GI Reports no additional complaints Reports no additional complaints Musc Reports no additional complaints Skin/Breast Reports system reviewed and no additional complaints, except as documented Neuro Reports no additional complaints Psych Reports no additional complaints Physical Exam Vital Signs: Last Vital Signs Pulse 57 07/12/23 10:19 BP 110/60 07/12/23 10:19 Pulse Ox 96 07/12/23 10:19 Oxygen Delivery Method Room Air 07/12/23 10:19 BMI result Body Mass Index 30.0 Const General: comfortable, no acute distress, alert and awake Orientation/consciousness: patient oriented x3 HEENT Head: Yes normal to inspection General nose exam: No nasal polyps present, No nasal discharge present and Other nasal findings present (Mild nasal congestion) Face and sinus: Yes sinuses nontender Mouth: oropharynx normal (No thrush noted at this time) Throat: Yes posterior oropharynx normal Eyes General: appearance normal, both eyes and all related structures Neck Neck: Yes normal visual inspection, Yes no lymphadenopathy, Yes trachea midline and Yes no JVD Thyroid: Thyroid normal Chest Chest palpation & inspection: normal inspection of the chest, normal palpation of entire chest wall and no tenderness Resp Other: Percussion note resonant, breath sounds are equal on both sides is moderately distant with prolonged expiratory phase. No wheezes rhonchi or crepitations are heard. Cardio Palpation: normal PMI Rate: regular rate Rhythm: regular rhythm Heart sounds: no gallops and no murmurs GI Palpation (GI): Soft to palpation, nontender, No hepatosplenomegaly present and no masses Auscultation: normal bowel sounds Back/Spine/Pelvis Thoracic/Lumbar Spine: thoracic and lumbar spine normal to inspection Skin General skin exam: no rashes or lesions noted Neuro General: patient oriented x3 and no focal motor deficits Cranial nerves: Yes CN's II-XII intact bilaterally Extrem General: Yes normal to inspection, Yes no clubbing, cyanosis or edema and Yes no calf tenderness Psych Appearance: grossly normal and well kempt Speech and movement: Normal speech and movement present Assessment & Plan Assessment & Plan (1) COPD (chronic obstructive pulmonary disease): Comment: 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 Has remained Stable and controlled . Code(s): J44.9 - Chronic obstructive pulmonary disease, unspecified Category: Medical Plan: [place]: WIXELA 250-50 1 INHALATION B.I.D. INCRUSE ELLIPTA 1 INHALATION DAILY * I TOLD HEALING THAT SHE CAN USE WIXELA AN EXTRA PUFF P.R.N. FOR RESCUE INHALER. (2) Allergic rhinitis: Comment: Stable , and controlled. Code(s): J30.9 - Allergic rhinitis, unspecified Category: Medical Plan: Continue same regimen : Flonase, 2 sprays in each nostril daily , Zyrtec 10 mg po once a day as needed . Montelukast 10 mg daily
== END 2023-07-12 10:54 | disposition home or self-care (01) ==
LOC: HO.HPS 10:01
PROVIDERS: PCP Internal Medicine; Visit Provider Internal Medicine
DX: J44.9 Chronic obstructive pulmonary disease, unspecified (principal); J30.9 Allergic rhinitis, unspecified
CPT/HCPCS: 99213

== ENCOUNTER → 2023-07-12 10:01 | Outpatient (BNVA) | payer MEDICARE, OTHER, SELFPAY | PROVIDERS: PCP Internal Medicine; Visit Provider Internal Medicine | DX: J44.9 Chronic obstructive pulmonary disease, unspecified (principal); J30.9 Allergic rhinitis, unspecified | CPT/HCPCS: 99212 ==

== ENCOUNTER 2023-07-13 11:16 | Outpatient (AMB) | payer MEDICARE, OTHER, SELFPAY ==
[2023-07-13 11:27] VITALS: BP 134/64; PULSE 68; O2SAT 96; BMI 29.8
--- NOTE | 2023-07-13 11:27 | MHC.PC.OV ---
Vital Signs 07/13/23 11:27 Height 5 ft 2 in Weight 163 lb BMI 29.8 BP 134/64 Blood Pressure Location Lt brachial Position Sitting Pulse 68 Pulse Source Pulse Oximeter Pulse Oximetry (%) 96 Oxygen Delivery Method Room Air Intake Visit Reasons: 3 month follow up Intake Note: Pt is here today for her 3 months f/u Allergies bee pollen [bee stings] Allergy (Severe, Verified 07/13/23 12:09) Anaphylaxis levofloxacin [Levaquin] Adverse Reaction (Unknown, Verified 07/13/23 12:09) achilles tendon issue stainless steel Allergy (Unknown, Uncoded 07/13/23 12:09) severe Derm reaction chlorine Adverse Reaction (Uncoded 07/13/23 12:09) Difficulty Breathing Medication List - Last Reconciled 07/13/23 by Shilpi Austin MD aspirin (Adult Low Dose Aspirin) 81 mg PO DAILY atorvastatin 10 mg PO DAILY cetirizine (Zyrtec) 10 mg PO DAILY cholecalciferol (vitamin D3) 50 mcg PO DAILY diltiazem HCl CD 180 mg PO QAM flaxseed oil 1,000 mg PO DAILY fluticasone propion-salmeterol 250-50 mcg/dose (Wixela Inhub) 1 inh inhalation BID 30 days fluticasone propionate 50 mcg/actuation (Allergy Relief (fluticasone)) 2 sprays intranasal DAILY 90 days glucosamine sulfate 1,000 mg PO BID Incruse Ellipta 62.5 mcg/actuation (umeclidinium) 1 inh PO DAILY NS irbesartan 150 mg PO BEDTIME levothyroxine 100 mcg PO DAILY metformin 1,000 mg PO BID montelukast 10 mg PO DAILY nystatin-triamcinolone 100,000-0.1 unit/g-% 1 appl topical DAILY PRN omega 1-dcx-plt-fish oil 300-1,000 mg (Fish Oil) 1 cap PO DAILY psyllium husk (Metamucil) 1 tbsp PO DAILY Tobacco use date assessed: 07/13/23 Fall risk assessment: No Falls in past year Last assessed Fall Risk: 07/13/23 Dental Screening Dental Screen Date: 07/13/23 Did you have a dental visit in the last 12 months?: Yes Did you have a dental problem in the last 6 months where you did not have access to dental care?: No Was dental information given to patient?: Patient has dentist HPI 3 month follow up HPI Details 82-year-old lady with hypertension, acquired hypothyroidism, hyperlipidemia and diabetes mellitus, here today for follow-up. She has been compliant with taking her medications, stays active, has no complaints at present time. Recent fasting labs showed hemoglobin A1c is within normal limits as well as lipids and thyroid levels. 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 Brother No problems noted. Sister No problems noted. Sister No problems noted. Sister No problems noted. Son No problems noted. Daughter No problems noted. Social History Housing: House Are you a primary senior caregiver to a significant other at home: No Do you presently have visiting nurse or other home services: No Alcohol intake: current Patient Tobacco Use Status: Never used Tobacco e-Cigarette/Vaping Use: Never Used service: No Current occupational status: retired Cognitive needs: No Hearing needs: No Vision needs: No Questionnaire PHQ-9 Over the last 2 weeks, how often have you been bothered by any of the following problems? 1. Little interest or pleasure in doing things: not at all 2. Feeling down, depressed, or hopeless: not at all 3. Trouble falling or staying asleep, or sleeping too much: not at all 4. Feeling tired or having little energy: not at all 5. Poor appetite or overeating: not at all 6. Feeling bad about yourself - or that you are a failure or have let yourself or your family down: not at all 7. Trouble concentrating on things, such as reading the newspaper or watching television: not at all 8. Moving or speaking so slowly that other people could have noticed. Or the opposite - being so fidgety or restless that you have been moving around a lot more than usual: not at all 9. Thoughts that you would be better off or of hurting yourself in some way: not at all Total score: 0 Depression Screening Interpretation: Negative Depression Screening Done: Yes 19537 - PHQ-9 Billing: Yes Source: Developed by Drs. Rod Franz, Shy Velez, Dev Piper and colleagues, with an educational jag from [employer]. Thrive Questionnaire Date Thrive assessed: 07/13/23 I am a: Patient What is your living situation today?: I have a steady place to live Within the past 12 months, did the food you bought not last and you didn't have the money to get more?: Never true Within the past 12 months, did you worry whether your food would run out before you got money to buy more?: Never true Do you have trouble paying for medicines?: No Do you have trouble getting transportation to medical appointments?: No Do you have trouble paying your heating and electricity bill?: No Do you have trouble taking care of your child, family member or friend?: No Do you have trouble with day-to-day activities such as bathing, preparing meals, shopping, managing finances, etc.?: No Are you currently unemployed and looking for a job?: No Are you interested in more education?: No THRIVE Score: 0 AUDIT C Alcohol Use Questionnaire (AUDIT-C) 1. How often do you have a drink containing alcohol?: 4 or more times a week 2. How many drinks containing alcohol do you have on a typical day when you are drinking?: 1 or 2 3. How often do you have six or more drinks on one occasion?: Never Total Score: 4 RICA-7 AMB Questionnaire RICA-7 Date RICA - 7 assessed: 07/13/23 Feeling nervous, anxious, or on edge: 0 = Not at all Not being able to stop or control worryin = Not at all Worrying too much about different things: 1 = Several days Trouble relaxin = Not at all Being so restless that it is hard to sit still: 0 = Not at all Becoming easily annoyed or irritable: 1 = Several days Feeling afraid as if something awful might happen: 0 = Not at all Total RICA-7 score (0-4 normal; 5-9 mild; 10-14 moderate; 15-21 severe): 2 Source: Developed by Drs. Rod Franz, Shy Velez, Dev Piper and colleagues, with an educational jag from [employer]. RICA-7 Assessment Billing RICA-7 Assessment Tool: RICA-7 Assessment 40711 Review of Systems Const All systems reviewed & are unremarkable except as noted in HPI and below Eyes Reports no additional complaints ENT Reports no additional complaints Card Denies chest pain, Denies irregular heart rhythm and Denies leg edema Resp Reports as per HPI GI Reports no additional complaints Reports no additional complaints Musc Reports no additional complaints Skin/Breast Reports system reviewed and no additional complaints, except as documented Neuro Reports no additional complaints, Denies Abnormal speech present and Denies Sensory deficit (Neuro) Psych Reports no additional complaints Endo Reports no additional complaints Gurwinder/Lymph Denies easy bleeding and Denies easy bruising Aller/Immun Reports no additional complaints Physical exam (Primary Care) Vital Signs: Last Vital Signs Pulse 68 07/13/23 11:27 BP 134/64 07/13/23 11:27 Pulse Ox 96 07/13/23 11:27 Oxygen Delivery Method Room Air 07/13/23 11:27 BMI result Body Mass Index 29.8 Tobacco/Smoking Status: Tobacco use Status Tobacco use date assessed 07/13/23 07/13/23 11:28 Patient Tobacco Use Status Never used Tobacco 07/13/23 11:28 e-Cigarette/Vaping Use Never Used 07/13/23 11:28 Depression Screening Interpretation: Negative Thrive Assessment: Date of Thrive Assessment Date Thrive assessed 10/26/22 07/13/23 11:28 Const Other: Alert oriented x3, no acute distress noted, ambulatory with normal gait Orientation/consciousness: patient oriented x3 HENMT Head: Yes normocephalic and Yes atraumatic General nose exam: Normal external nose present and No nasal discharge present Face and sinus: Yes face symmetric Mouth: moist mucous membranes Eyes General: appearance normal, both eyes and all related structures Neck Neck: Yes full ROM, Yes no lymphadenopathy and Yes supple Resp Auscultation: clear to auscultation bilaterally Cardio Other: S1-S2 present regular rate and rhythm GI Palpation (GI): Soft to palpation, nontender and no guarding Auscultation: normal bowel sounds Skin General skin exam: no rashes or lesions noted Neuro General: patient oriented x3, gait normal, tone normal, moves all extremities, no focal motor deficits and CN's II-XI intact bilaterally Speech: No Abnormal speech present Sensory Exam: No Sensory deficit (Neuro) Extrem General: Yes full ROM, Yes no joint enlargement, Yes no clubbing, cyanosis or edema, Yes no calf tenderness and Yes normal gait Right lower extremity: foot (Her hammertoe right 2nd toe, bunion on right) Psych Appearance: grossly normal and well kempt Mental Status: mental status grossly normal Speech and movement: Normal speech and movement present Affect: normal affect Attitude: cooperative Thought process: Normal thought process present Thought content: Normal thought content present Results Reviewed Results Reviewed: Laboratory Tests 01/12/23 07/09/23 07:09 06:21 Estimat Average Glucose 105 114 Hemoglobin A1c % 5.3 5.6 Name: Roxane Rogers Age/Sex: 82/F : 1940 Unit#: [id number] Attend Dr: Shilpi Austin MD Re07/09/23 Status: DEP REF [facility] Disch: SPEC : [id number] BERNADETTE: 07/09/23 STATUS: COMP REQ : [id number] RECD: 07/09/[address]: Shilpi Austin MD COMP: 07/09/2354 ENTERED: 07/09/[address]: ORDERED: Met Prof Fast, AST, ALT, Lipid Panel, Vitamin D 25-OH, Free T4, TSH Test Result Flag Reference Sodium 142 135-145 mmol/L Potassium 5.1 3.3-5.1 mmol/L Slight Hemolysis CL 111 H 96-108 mmol/L CO2 22 22-29 mmol/L Gap 14 12-20 BUN 26 H 9-16 mg/dL Creat 1.11 0.5-1.4 mg/dL EGFR 47 NOTE: For -[place] individuals, multiply the result by 1.210. Chronic Kidney Disease: Estimated GFR < 60 mL/min/1.73m2 Severe Kidney Disease: Estimated GFR < 15 mL/min/1.73m2 FBS 93 60-99 mg/dL CA 9.8 8.4-10.2 mg/dL AST (GOT) 19 5-31 U/L Slight Hemolysis ALT (GPT) 13 0-31 U/L Triglyceride 93 <150 mg/dL Desirable Triglyceride: less than 150 mg/dL Borderline High Triglyceride 150-199 mg/dL High Triglyceride: 200-499 mg/dL Very High Triglyceride: greater than or equal to 5OO mg/dL Cholesterol 158 <200 mg/dL Desirable Cholesterol: less than 200 mg/dL Borderline High Cholesterol: 200-239 mg/dL High Cholesterol: greater than 239 mg/dL LDL Calculated 67 <100 mg/dL Desirable LDL: less than 100 mg/dL Near Optimal/Above Optimal LDL: 110-129 mg/dL Borderline High LDL: 130-159 mg/dL High LDL: 160-189 mg/dL Very High LDL: greater than or equal to 190 mg/dL HDL 73 >40 mg/dL Desirable HDL: greater than 40 mg/dL Note: This HDL assay may give artificially low results in patients with liver disease. Vit D 25-OH Tot 40.2 >30 ng/mL Health Based Reference Values* < 20 ng/mL Deficient 20-30 ng/mL Insufficient > 30 ng/mL Sufficient *Britney DELATORRE. N Engl J Med. 2007;357:266-280 Care must be taken in interpreting Vitamin D results from different laboratories and methodologies. Published data demonstrated that results from patients undergoing hemodialysis may show a negative bias when tested with various automated 25-OH vitamin D assays when compared to LC-MS/MS. When testing samples from patients whose predominant form of Vitamin D is Vitamin D2, such as patients receiving Vitamin D2 supplementation, results that are subtherapeutic should be confirmed with another method such as LC-MS/MS. Free T4 1.07 0.71-1.85 ng/dL TSH 3rd Gen. 0.22 L 0.32-4.0 uIU/mL TSH 3rd Generation ([facility]) Assessment and Plan Assessment & Plan (1) Dyslipidemia: Code(s): E78.5 - Hyperlipidemia, unspecified Plan: Recent fasting lipids are within normal limits, continued on atorvastatin 10 mg daily, flaxseed oil supplement and Vantage 3 fatty acid supplements. (2) Acquired hypothyroidism: Code(s): E03.9 - Hypothyroidism, unspecified Plan: Thyroid levels are within normal limits, continued on levothyroxine 100 mcg daily in a.m. (3) Essential hypertension: Code(s): I10 - Essential (primary) hypertension Plan: Continue your irbesartan and diltiazem at the same dose. Reinforced importance of following a low sodium diet, getting regular exercise, and lowering stress levels. (4) Type 2 diabetes mellitus without complication, without long-term current use of insulin: Code(s): E11.9 - Type 2 diabetes mellitus without complications Plan: Recent lab results reviewed with patient, with sugar and hemoglobin A1c stable and at goal . Continue metformin 1000 mg 1 tablet twice a day, continue to check fasting blood sugar at home, maintain log and bring to next appointment for review. Reinforced diabetic diet and regular exercise with patient. Counseled regarding importance of yearly diabetes retinopathy screening. Patient advised to inspect feet daily, for any signs of injury, callus or infection. Compliance with diet and regular exercise again stressed. Blood pressure goal is less than 130/80, goal LDL is less than 100 and goal hemoglobin A1c is less than 7% follow-up appointment made in-6--months, after fasting labs done. Orders: Orders Hemoglobin A1c 12/12/23 E03.9 - Hypothyroidism, unspecified, E11.9 - Type 2 diabetes mellitus without complications, E78.5 - Hyperlipidemia, unspecified, I10 - Essential (primary) hypertension Alanine Aminotransferase 12/12/23 E03.9 - Hypothyroidism, unspecified, E11.9 - Type 2 diabetes mellitus without complications, E78.5 - Hyperlipidemia, unspecified, I10 - Essential (primary) hypertension Thyroid Stimulating Hormone 12/12/23 E03.9 - Hypothyroidism, unspecified, E11.9 - Type 2 diabetes mellitus without complications, E78.5 - Hyperlipidemia, unspecified, I10 - Essential (primary) hypertension Free T4 (Free Thyroxine) 12/12/23 E03.9 - Hypothyroidism, unspecified, E11.9 - Type 2 diabetes mellitus without complications, E78.5 - Hyperlipidemia, unspecified, I10 - Essential (primary) hypertension Lipid Panel 12/12/23 E03.9 - Hypothyroidism, unspecified, E11.9 - Type 2 diabetes mellitus without complications, E78.5 - Hyperlipidemia, unspecified, I10 - Essential (primary) hypertension Basic Metabolic Panel Fasting 12/12/23 E03.9 - Hypothyroidism, unspecified, E11.9 - Type 2 diabetes mellitus without complications, E78.5 - Hyperlipidemia, unspecified, I10 - Essential (primary) hypertension Aspartate Amino Transferase 12/12/23 E03.9 - Hypothyroidism, unspecified, E11.9 - Type 2 diabetes mellitus without complications, E78.5 - Hyperlipidemia, unspecified, I10 - Essential (primary) hypertension Microalbumin, Random (w Creat) 12/12/23 E03.9 - Hypothyroidism, unspecified, E11.9 - Type 2 diabetes mellitus without complications, E78.5 - Hyperlipidemia, unspecified, I10 - Essential (primary) hypertension Coding Level of Care Code Est Pt Level 4 (22428) Diagnoses Dyslipidemia E78.5 Acquired hypothyroidism E03.9 Essential hypertension I10 Type 2 diabetes mellitus without complication, without long-term current use of insulin E11.9 Additional Codes RICA-7 Assessment Billing - RICA-7 Assessment Tool: RICA-7 Assessment 09483 ([id number])
== END 2023-07-13 12:31 | disposition home or self-care (01) ==
PROVIDERS: PCP Internal Medicine; Visit Provider Internal Medicine
DX: E11.69 Type 2 diabetes mellitus with other specified complication (principal); E78.5 Hyperlipidemia, unspecified; E03.9 Hypothyroidism, unspecified; I10 Essential (primary) hypertension
CPT/HCPCS: 99214

== ENCOUNTER 2023-07-16 13:47 | Outpatient (AMB) | payer MEDICARE, OTHER, SELFPAY ==
--- NOTE | 2023-07-16 14:32 | AM.OFFVISNUR ---
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) Allergies bee pollen [bee stings] Allergy (Severe, Verified 07/13/23 12:09) Anaphylaxis levofloxacin [Levaquin] Adverse Reaction (Unknown, Verified 07/13/23 12:09) achilles tendon issue stainless steel Allergy (Unknown, Uncoded 07/13/23 12:09) severe Derm reaction chlorine Adverse Reaction (Uncoded 07/13/23 12:09) Difficulty Breathing Immunizations pneumoc 20-chanelle conj-dip cr(PF) 0.5 mL IM syringe Performing Provider: Shilpi Austin MD Performing Location: [facility] Administered by: Stefan Omalley RN on 07/16/23 14:30 Dose Route Admin Location Dispensed Lot Number Expiration Date NDC Ticket Dispatcher 0.5 mL IM Left Deltoid 0.5 mL [id number] 05/20/24 1401-5429-72 [employer] VIS Given Date VIS Provided VIS Publication Date 07/16/23 Single Vaccine 21 Eligibility Eligibility Date Funding Source Not [facility] Eligible 07/16/23 Private Administration Comments: consented for . patient tolerated well. Coding Assessment & Plan Assessment & Plan Orders: Orders Pneumococcal 20 Immunization Today Z23 - Encounter for immunization Medications: New pneumoc 20-chanelle conj-dip cr(PF) 0.5 mL IM ONCE 0.5 mL 0RF Z23 - Encounter for immunization
== END 2023-07-16 14:34 | disposition home or self-care (01) ==
PROVIDERS: PCP Internal Medicine
DX: Z23 Encounter for immunization (principal)
CPT/HCPCS: 90471; 90677

== ENCOUNTER 2023-07-20 14:20 | Outpatient (REF) | payer MEDICARE, OTHER, SELFPAY ==
--- NOTE | ~2023-07-20 | US_ITS ---
EXAMINATION: US PELVIS CLINICAL INFORMATION: Postmenopausal bleeding COMPARISON: None available. TECHNIQUE: Ultrasound of the pelvis is performed using both transabdominal and transvaginal transducers along with Doppler. Transvaginal imaging is performed due to inadequate visualization transabdominally. FINDINGS: Uterus: The uterus is anteverted and measures 5.5 x 2.2 x 3.5 cm. No uterine masses however, a hypoechoic ill-defined area in the cervix at 19 x 16 x 16 mm is seen. This could reflect a hematoma. This could be correlated with physical examination. Direct visualization is advised. The double wall endometrial thickness is 3.7 mm. Small nabothian cysts are incidentally seen. Adnexa: The right ovary measures 10 x 8 x 7 mm yielding a calculated volume of 0.3 mL. Left ovary was not visualized. There is no ascites. US/US pelvic and transvaginal IMPRESSION: Ill-defined hypoechoic region within the cervix could reflect a hematoma. Given the patient's age and symptoms I would recommend direct visualization.
== END 2023-07-20 14:21 | disposition home or self-care (01) ==
LOC: HO.HMGCX 14:20
PROVIDERS: PCP Internal Medicine; Visit Provider Internal Medicine
DX: N95.0 Postmenopausal bleeding (principal)
CPT/HCPCS: 76830; 76856

== ENCOUNTER 2023-07-29 13:15 | Outpatient (REF) | payer MEDICARE, OTHER, SELFPAY ==
--- NOTE | ~2023-07-29 | US_ITS ---
EXAMINATION: MM DIAGNOSTIC DIGITAL BREAST TOMOSYNTHESIS, LEFT US BREAST LIMITED, LEFT MAMMOGRAPHY: CLINICAL INFORMATION: Evaluate focal asymmetry upper outer quadrant of the left breast at middle depth. COMPARISON: Mammography: 06/25/2023, 06/23/2022, 06/16/2021, and exams dating back to 2014. TECHNIQUE: Digital breast tomosynthesis is performed in the following views: Full-field 3-D left mediolateral view, and 3-D left spot compression CC and spot compression MLO views. Computer-aided diagnosis was used for this study. FINDINGS: There are scattered areas of fibroglandular density (ACR BI-RADS breast composition Category b). The focal asymmetry seen on the prior exam does not definitively persist on diagnostic views, and appears to be normal summation artifact of overlapping normal fibroglandular tissues. Mildly nodular parenchymal foci in the upper outer quadrant of the left breast likely relate to either normal parenchyma or mild fibrocystic changes. We will perform ultrasound to evaluate this region. No skin or axillary abnormality. ULTRASOUND: CLINICAL INFORMATION: As above. COMPARISON: None TECHNIQUE: Targeted sonographic evaluation left breast was performed using a high frequency linear transducer. Attention to the upper outer quadrant given, spanning 11:00 to 3:00. Selected archived documentation. FINDINGS: LEFT BREAST: There is normal fibroglandular tissue present without evidence of mass, cystic abnormality, abnormal shadowing, or parenchymal distortion. US/US breast LT limited mamm only IMPRESSION: -There are no findings suspicious for malignancy in the left breast. -Focal asymmetry does not definitively persist in the upper outer quadrant of the left breast, and appears most likely with related to normal glandular tissue in the upper outer left breast. -Recommend the patient resume routine annual screening to include both breasts. OVERALL ASSESSMENT: Mammography: BI-RADS 2 - Benign Findings Ultrasound: BI-RADS 2 - Benign Findings RECOMMENDATION: 1 year F/U This patient's information was entered into a reminder system with a target due date for their next mammogram.
== END 2023-07-29 13:16 | disposition home or self-care (01) ==
LOC: HO.MAMMO 13:15
PROVIDERS: PCP Internal Medicine; Visit Provider Internal Medicine
DX: N64.89 Other specified disorders of breast (principal)
CPT/HCPCS: 76642; 77061; 77065

== ENCOUNTER → 2023-07-29 13:30 | Outpatient (BNV) | payer MEDICARE, OTHER, SELFPAY | PROVIDERS: PCP Internal Medicine; Visit Provider Radiology Diagnostic Radiology | DX: R92.8 Other abnormal and inconclusive findings on diagnostic imaging of breast (principal) | CPT/HCPCS: 76642; 77065; G0279 ==

== ENCOUNTER 2023-08-17 11:12 | Outpatient (REF) | payer MEDICARE, OTHER, SELFPAY ==
[2023-08-26 07:59] LABS: HPV mRNA E6/E7 rflx Not Detected (Not Detected)
== END 2023-08-17 11:13 | disposition home or self-care (01) ==
LOC: HO.LNP 11:12
PROVIDERS: PCP Internal Medicine; Visit Provider Obstetrics & Gynecology
DX: Z12.4 Encounter for screening for malignant neoplasm of cervix (principal); Z11.51 Encounter for screening for human papillomavirus (HPV); N95.0 Postmenopausal bleeding
CPT/HCPCS: 58100; 87624; 88142; 88305; 99202

== ENCOUNTER 2023-08-17 11:12 | Outpatient (AMB) | payer MEDICARE, OTHER, SELFPAY ==
--- NOTE | 2023-08-17 11:33 | MHC.OFFVIS ---
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 Information Interpreted: non-clinical & clinical Personal Companion: Personal Companion Present (Maricarmen ROUSE) Accompanied by: Daughter Allergies bee pollen [bee stings] Allergy (Severe, Verified 08/17/23 11:40) Anaphylaxis levofloxacin [Levaquin] Adverse Reaction (Unknown, Verified 08/17/23 11:40) achilles tendon issue stainless steel Allergy (Unknown, Uncoded 08/17/23 11:40) severe Derm reaction chlorine Adverse Reaction (Uncoded 08/17/23 11:40) Difficulty Breathing Post menopausal: Yes HPI Comments Details: Presenting referred for an episode of heavy vaginal bleeding on 07/15/2023 for 1 day. Last Pap smear was in 2010 was negative Pelvic ultrasound done on 07/20/2023 showed the following: Uterus: The uterus is anteverted and measures 5.5 x 2.2 x 3.5 cm. No uterine masses however, a hypoechoic ill-defined area in the cervix at 19 x 16 x 16 mm is seen. This could reflect a hematoma. This could be correlated with physical examination. Direct visualization is advised. The double wall endometrial thickness is 3.7 mm. Small nabothian cysts are incidentally seen. [facility] Medical History (Updated 08/17/23 @ 12:26 by Xavier Luque MD) Postmenopausal vaginal bleeding Hammertoe of second toe of right foot Tubular adenoma of colon Dyslipidemia Acquired hypothyroidism Essential hypertension Type 2 diabetes mellitus without complication, without long-term current use of insulin COPD (chronic obstructive pulmonary disease) Allergic rhinitis Surgical History Hx of right cataract extraction History of basal cell carcinoma excision History of colonoscopy Family History Father Cancer of prostate Mother COPD (chronic obstructive pulmonary disease) Polio Smoker Daughter Breast cancer Paternal Grandmother No problems noted. Brother No problems noted. Sister No problems noted. Sister No problems noted. Sister No problems noted. Son No problems noted. Daughter No problems noted. Social History Housing: House Are you a primary daycare director to a significant other at home: No Do you presently have visiting nurse or other home services: No Alcohol intake: current Patient Tobacco Use Status: Never used Tobacco e-Cigarette/Vaping Use: Never Used service: No Current occupational status: retired Cognitive needs: No Hearing needs: No Vision needs: No Review of Systems Const All systems reviewed & are unremarkable except as noted in HPI and below Physical Exam Vital Signs: Last Vital Signs BP 120/64 08/17/23 11:34 BMI result Body Mass Index 29.4 General: Yes no CVA tenderness External Female Exam: normal external appearance and normal appearance of the urethra Speculum Exam - Vagina: normal appearance of the vagina, normal palpation, no lesions and no masses Speculum Exam - Cervix: normal appearance of the cervix, normal palpation, no lesions, no masses and nontender Bimanual exam- vagina & uterus: normal bimanual exam, normal palpation, uterine size normal, normal palpation, uterine shape normal, No Cervical tenderness present and non-tender Bimanual Exam- Adnexa, other: normal adnexae Back/Spine/Pelvis Back: no CVA tenderness Office Procedures Endometrial Biopsy Details: The patient was counseled regarding the indication and benefits of endometrial sampling to rule out endometrial pathology including not limited to endometrial hyperplasia or endometrial cancer and others; The alternatives (Either do nothing vs. hysteroscopy D&C) & the risks were discussed with the patient including but not limited: pain, uterine perforation, bleeding, infection, possible injury to bladder, bowel, ureter, possible need for blood transfusion with all its possible risks. The patient verbalized understanding all questions answered and signed consent. The patient was placed into the dorsal lithotomy position; a speculum was inserted in the vagina. Using aseptic technique for the procedure, the cervix was cleansed with Betadine. The anterior lip of the cervix was grasped with a single tooth tenaculum. The uterus was sounded to 6 cm with a 4 mm Pipelle was used. Tissues samples were obtained and placed in formalin, in a patient labeled container and sent to the pathology department. At the end of the procedure, there was minimal bleeding noted The patient tolerated the procedure well and was discharged in good condition with the following instructions: Nothing in the vagina until the bleeding stops. No sex until the bleeding stops, to call if any of the following occurs: fever (>100.4), flu-like symptoms, abdominal pain, heavy bleeding, four smelling vaginal discharge. The patient was instructed to schedule a Follow up appointment in 2 weeks to discuss pathology results of the biopsy and treatment options. This note was generated with a voice recognition program. Some errors may have been overlooked during the review of this note. Sometimes these errors may affect the content or meaning of a given sentence. [id number] Biopsy Assessment & Plan Assessment & Plan (1) Postmenopausal vaginal bleeding: Comment: 1.9 cm mass possible hematoma by ultrasound Code(s): N95.0 - Postmenopausal bleeding Category: Medical Plan: Discussed with the patient the differential diagnosis of post menopausal bleeding with normal pelvic exam including but not limited to, endometrial hyperplasia, cancer, polyps and other causes; co testing done. Discussed with the patient the pelvic ultrasound findings, the endometrial stripe thickenss measured by ultrasound was less than 4mm. The negative predictive value, positive predictive value, Sensitivity, specificity of using ultrasound measurement of endometrial stripe to detecting endometrial pathology including hyperplasia , polyp or cancer were discussed with the patient. Since there is evidence of 1.9 cm mass possible hematoma, Recommended to the patient that the next step is an endometrial sampling via hysteroscopy D&C possible polypectomy versus endometrial biopsy to r/o endometrial pathology including hyperplasia or cancer. All the pros and cons risks and benefits of each approach were discussed with the patient, endometrial biopsy being less invasive, office procedure with less sensitivity and inability diagnose a polyp and removal versus hysteroscopy done under anesthesia more invasive more sensitive to endometrial cancer and possibility of diagnosing and endometrial polyp with the possibility of polypectomy. All questions were answered pt verbalized understanding and decided to proceed with endometrial biopsy. EMB done, see procedure note Orders: Orders AMB Endometrial Biopsy Today N95.0 - Postmenopausal bleeding Pap Smear Today N95.0 - Postmenopausal bleeding Surgical Today N95.0 - Postmenopausal bleeding Coding Level of Care Code New Pt Level 3 (98535) Procedure Only Diagnoses Postmenopausal vaginal bleeding N95.0 CPT Codes Endometrial Biopsy - CPT: 00609-Qizvyolasdg Biopsy ([id number])
[2023-08-17 11:34] VITALS: BP 120/64; BMI 29.4
== END 2023-08-17 12:31 | disposition home or self-care (01) ==
PROVIDERS: PCP Internal Medicine; Visit Provider Obstetrics & Gynecology
DX: N95.0 Postmenopausal bleeding (principal)
CPT/HCPCS: 58100; 99203

== ENCOUNTER 2023-09-07 09:28 | Outpatient (AMB) | payer MEDICARE, OTHER, SELFPAY ==
--- NOTE | 2023-09-07 09:41 | MHC.OFFVIS ---
Vital Signs 09/07/23 09:46 Height 5 ft 2 in Weight 160 lb 14.999 oz BMI 29.4 BP 120/70 Intake Visit Reasons: 3 weeks follow up emb results/ per Dr. luque Tobacco Stripper Hand Required: No Information Interpreted: non-clinical & clinical Accompanied by: Daughter Allergies bee pollen [bee stings] Allergy (Severe, Verified 09/07/23 09:48) Anaphylaxis levofloxacin [Levaquin] Adverse Reaction (Unknown, Verified 09/07/23 09:48) achilles tendon issue stainless steel Allergy (Unknown, Uncoded 09/07/23 09:48) severe Derm reaction chlorine Adverse Reaction (Uncoded 09/07/23 09:48) Difficulty Breathing Post menopausal: Yes HPI Comments Details: The patient is presenting after endometrial biopsy. The patient has no complaints, no vaginal bleeding, no feverishness chills or abdominal pain. The endometrial biopsy pathology report showed the following: Endometrium, biopsy: Scant benign atrophic endometrium and benign endocervical glandular and squamous epithelium; no atypia or carcinoma Last co testing pending [facility] Medical History Postmenopausal vaginal bleeding Hammertoe of second toe of right foot Tubular adenoma of colon Dyslipidemia Acquired hypothyroidism Essential hypertension Type 2 diabetes mellitus without complication, without long-term current use of insulin COPD (chronic obstructive pulmonary disease) Allergic rhinitis Surgical History Hx of right cataract extraction History of basal cell carcinoma excision History of colonoscopy Family History Father Cancer of prostate Mother COPD (chronic obstructive pulmonary disease) Polio Smoker Daughter Breast cancer Paternal Grandmother No problems noted. Brother No problems noted. Sister No problems noted. Sister No problems noted. Sister No problems noted. Son No problems noted. Daughter No problems noted. Social History Housing: House Are you a primary interior plant caretaker to a significant other at home: No Do you presently have visiting nurse or other home services: No Alcohol intake: current Patient Tobacco Use Status: Never used Tobacco e-Cigarette/Vaping Use: Never Used service: No Current occupational status: retired Cognitive needs: No Hearing needs: No Vision needs: No Review of Systems Const All systems reviewed & are unremarkable except as noted in HPI and below Reports as per HPI and Reports no additional complaints GI Reports no additional complaints Reports no additional complaints Physical Exam Vital Signs: Last Vital Signs BP 120/70 09/07/23 09:46 BMI result Body Mass Index 29.4 Assessment & Plan Assessment & Plan (1) Postmenopausal vaginal bleeding: Comment: 1.9 cm mass possible hematoma by ultrasound Code(s): N95.0 - Postmenopausal bleeding Category: Medical Plan: Discussed with the patient the results of the endometrial biopsy showing atrophic benign endometrium. Discussed with the patient the sensitivity, specificity, positive and negative predictive value, of endometrial biopsy in detecting endometrial pathology including but not limited to endometrial hyperplasia, cancer and other pathology; instructed the patient to call in case vaginal bleeding bleeding recurs, the next step will be to proceed with a diagnostic hysteroscopy/D&C for further endometrial sampling evaluation to rule out endometrial pathology. All questions answered and the patient verbalized understanding and agreed with the plan. Coding Level of Care Code Est Pt Level 3 (80910) Diagnoses Postmenopausal vaginal bleeding N95.0
[2023-09-07 09:46] VITALS: BP 120/70; BMI 29.4
== END 2023-09-07 10:02 | disposition home or self-care (01) ==
PROVIDERS: PCP Internal Medicine; Visit Provider Obstetrics & Gynecology
DX: N95.0 Postmenopausal bleeding (principal)
CPT/HCPCS: 99213

== ENCOUNTER → 2023-09-07 09:28 | Outpatient (BNVA) | payer MEDICARE, OTHER, SELFPAY | PROVIDERS: PCP Internal Medicine; Visit Provider Obstetrics & Gynecology | DX: N95.0 Postmenopausal bleeding (principal); Z98.890 Other specified postprocedural states | CPT/HCPCS: 99212 ==

== ENCOUNTER 2023-11-17 13:10 | Outpatient (AMB) | payer MEDICARE, OTHER, SELFPAY ==
--- NOTE | 2023-11-17 13:31 | AM.OFFWIN_ITS ---
Intake Vital Signs 11/17/23 13:32 Height 5 ft 2 in Weight 166 lb 2 oz BMI 30.4 BP 134/72 Blood Pressure Location Lt brachial Position Sitting Pulse 74 Pulse Source Pulse Oximeter Temp 98.5 F Temp Source Oral Pulse Oximetry (%) 96 Oxygen Delivery Method Room Air Intake Visit Reasons: EP headache Intake Note: Pt presents to the office today for c/o a headache which started about a year ago and since then has been on and off over the year. She states it has came back and hasn't gone away for at least 3 weeks. Pt denies any dizziness. Patient Tobacco Use Status: Never used Tobacco Allergies bee pollen [bee stings] Allergy (Severe, Verified 11/17/23 13:35) Anaphylaxis levofloxacin [Levaquin] Adverse Reaction (Unknown, Verified 11/17/23 13:35) achilles tendon issue stainless steel Allergy (Unknown, Uncoded 11/17/23 13:35) severe Derm reaction chlorine Adverse Reaction (Uncoded 11/17/23 13:35) Difficulty Breathing HPI HPI Comments History of Present Illness Details Patient is an 83-year-old female with a history of hypertension, not on a blood thinner complaining of a headache off and on for the last few weeks. She states that she has a hairbrush injury from April of 2022 which made her scalp extremely tender and gave her headaches for awhile but those seem to have subsided. The type of headache she has now is similar but a little more towards her taoism. She denies dull aching throbbing headaches she denies any sensitivity to light or sound, she denies any changes in her vision or hearing or ear pain. She states when she touches it, it is worse. She tried taking 1 g of Tylenol last night without much relief. She states she can not take NSAIDs per to doctors she has previously had. She states she is eating and drinking her normal amount. She then tells me about all the stress she is going through in her life with her son being in a car accident, her ceiling collapsing in her home causing a lot of damage that she is dealing with, her 's medical issues, her volunteer commitments and she still works between 5 and 20 hours per week. She tells me she is also the go to person in her family and is always problem solving for everybody in she feels very overwhelmed. She tells me she has spoke with Romy from [facility], she is a nurse navigator and she spoke with the nurse Zainab about these issues and they recommended she come to the walk-in clinic today. [facility] Medical History (Updated 11/17/23 @ 14:07 by Adriana Jenkins PA-C) Postmenopausal vaginal bleeding Hammertoe of second toe of right foot Tubular adenoma of colon Dyslipidemia Acquired hypothyroidism Essential hypertension Type 2 diabetes mellitus without complication, without long-term current use of insulin COPD (chronic obstructive pulmonary disease) Allergic rhinitis Surgical History (Updated 11/12/23 @ 11:40 by Maritza Rousseau [facility]) Hx of right cataract extraction History of basal cell carcinoma excision History of colonoscopy Family History (Updated 11/12/23 @ 11:37 by Maritza Rousseau [facility]) Father Cancer of prostate Mother COPD (chronic obstructive pulmonary disease) Polio Smoker Daughter Breast cancer H/O: hysterectomy Paternal Grandmother No problems noted. Brother Cancer of prostate Sister No problems noted. Sister No problems noted. Sister No problems noted. Son No problems noted. Maternal Grandmother No problems noted. Social History Housing: House Are you a primary personal care home administrator to a significant other at home: No Do you presently have visiting nurse or other home services: No Alcohol intake: current Patient Tobacco Use Status: Never used Tobacco e-Cigarette/Vaping Use: Never Used service: No Current occupational status: retired Cognitive needs: No Hearing needs: No Vision needs: No Review of Systems Const All systems reviewed & are unremarkable except as noted in HPI and below Physical Exam Vital Signs: Last Vital Signs Temp 98.5 F 11/17/23 13:32 Pulse 74 11/17/23 13:32 BP 134/72 11/17/23 13:32 Pulse Ox 96 11/17/23 13:32 Oxygen Delivery Method Room Air 11/17/23 13:32 BMI result Body Mass Index 30.4 Const General: cooperative, healthy appearing, comfortable, no acute distress and well developed Orientation/consciousness: patient oriented x3 Limitations: no limitations HEENT Head: Yes normal to inspection, Yes No palpable skull fracture present, Yes normocephalic, Yes atraumatic, No abrasion, No contusion, No scalp tenderness and No Temporal artery tenderness present Ears: hearing grossly normal bilaterally and TM's normal bilaterally General nose exam: Normal external nose present Face and sinus: Yes normal facial exam and Yes sinuses nontender Eyes General: appearance normal, both eyes and all related structures Neck Neck: Yes normal visual inspection and Yes full ROM Resp Effort & Inspection: normal respiratory effort and able to speak in complete sentences Skin General skin exam: no rashes or lesions noted Neuro General: patient oriented x3 Extrem General: Yes normal to inspection Assessment & Plan Assessment & Plan (1) Stress headaches: Code(s): 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 She states she will follow up with Romy, the [facility] nurse navigator and her PCP Dr. Austin if she wants to pursue some short-term therapy. Also recommended eating healthy and making sure she stays well hydrated and talking to friends and family about her issues to help deal with the level of stress she is going through right now as her headache resolved after we chatted. Also recommended stepping away from those commitments which aren't vital and resuming if and when she is ready. Recommended taking some walks to clear her head as well. Plan See above Coding Level of Care Code Est Pt Level 3 (31534) Diagnoses Stress headaches F45.41
[2023-11-17 13:32] VITALS: BP 134/72; PULSE 74; TEMP 36.9; O2SAT 96; BMI 30.4
== END 2023-11-17 14:14 | disposition home or self-care (01) ==
PROVIDERS: PCP Internal Medicine; Visit Provider Physician Assistant
DX: F45.41 Pain disorder exclusively related to psychological factors (principal)
CPT/HCPCS: 99213

== ENCOUNTER 2023-12-15 06:22 | Outpatient (REF) | payer MEDICARE, OTHER, SELFPAY ==
[2023-12-15 07:49] LABS: Estimated Average Glucose 111 mg/dL; Hemoglobin A1c % 5.5 % (<6.0)
[2023-12-15 08:06] LABS: Alanine Aminotransferase 15 U/L (0-31); Anion Gap 12 (12-20); Aspartate Amino Transferase 17 U/L (5-31); Blood Urea Nitrogen 20 mg/dL (9-16); Calcium 10.3 mg/dL (8.4-10.2); Carbon Dioxide 25 mmol/L (22-29); Chloride 110 mmol/L (96-108); Cholesterol 152 mg/dL (<200); Estimated Glomerular Filt Rate 53; Glucose Fasting 96 mg/dL (60-99); HDL Cholesterol 67 mg/dL (>40); LDL Cholesterol Calculated 73 mg/dL (<100); Potassium 4.8 mmol/L (3.3-5.1); Sodium 142 mmol/L (135-145); Triglycerides 64 mg/dL (<150)
[2023-12-15 08:10] LABS: Creatinine Urine 53.15 mg/dL; Microalbumin Urine < 5.0 mg/L
[2023-12-15 08:25] LABS: Free T4 (Free Thyroxine) 1.04 ng/dL (0.71-1.85); Thyroid Stimulating Hormone 0.71 uIU/mL (0.32-4.0)
== END 2023-12-15 06:23 | disposition home or self-care (01) ==
LOC: HO.LAB 06:22
PROVIDERS: PCP Internal Medicine; Visit Provider Internal Medicine
DX: E11.9 Type 2 diabetes mellitus without complications (principal); I10 Essential (primary) hypertension; E03.9 Hypothyroidism, unspecified; E78.5 Hyperlipidemia, unspecified
CPT/HCPCS: 36415; 80048; 80061; 82043; 82570; 83036; 84439; 84443; 84450; 84460

== ENCOUNTER 2023-12-21 11:15 | Outpatient (AMB) | payer MEDICARE, OTHER, SELFPAY ==
[2023-12-21 11:41] VITALS: BP 126/60; PULSE 71; O2SAT 97
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
== END 2023-12-21 13:31 | disposition home or self-care (01) ==
PROVIDERS: PCP Internal Medicine; Visit Provider Internal Medicine
DX: E11.9 Type 2 diabetes mellitus without complications (principal); I10 Essential (primary) hypertension; E03.9 Hypothyroidism, unspecified; E78.5 Hyperlipidemia, unspecified

== ENCOUNTER → 2023-12-21 11:15 | Outpatient (BNVA) | payer MEDICARE, OTHER, SELFPAY | PROVIDERS: PCP Internal Medicine; Visit Provider Internal Medicine | DX: E11.9 Type 2 diabetes mellitus without complications (principal); E03.9 Hypothyroidism, unspecified; E78.5 Hyperlipidemia, unspecified; I10 Essential (primary) hypertension | CPT/HCPCS: 96127; 99212 ==

== ENCOUNTER 2024-01-12 09:36 | Outpatient (AMB) | payer MEDICARE, OTHER, SELFPAY ==
[2024-01-12 09:53] VITALS: BP 122/60; PULSE 69; O2SAT 96
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
== END 2024-01-12 10:29 | disposition home or self-care (01) ==
PROVIDERS: PCP Internal Medicine; Visit Provider Internal Medicine
DX: J30.9 Allergic rhinitis, unspecified (principal); J44.9 Chronic obstructive pulmonary disease, unspecified
CPT/HCPCS: 99213

== ENCOUNTER → 2024-01-12 09:36 | Outpatient (BNVA) | payer MEDICARE, OTHER, SELFPAY | PROVIDERS: PCP Internal Medicine; Visit Provider Internal Medicine | DX: J44.9 Chronic obstructive pulmonary disease, unspecified (principal); J30.9 Allergic rhinitis, unspecified | CPT/HCPCS: 99212 ==

== ENCOUNTER 2024-02-01 13:48 | Outpatient (AMB) | payer MEDICARE, OTHER, SELFPAY ==
--- NOTE | 2024-02-01 14:24 | AM.OFFWIN_ITS ---
Intake Vital Signs 02/01/24 14:26 Height 5 ft 2 in Weight 165 lb 4 oz BMI 30.2 BP 130/80 Blood Pressure Location Lt brachial Position Sitting Pulse 70 Pulse Source Pulse Oximeter Pulse Oximetry (%) 98 Oxygen Delivery Method Room Air Intake Visit Reasons: EP severe pain on RT knee joint Intake Note: Patient here for severe pain of right knee that has been present for a few weeks. Patient Tobacco Use Status: Never used Tobacco Allergies bee pollen [bee stings] Allergy (Severe, Verified 02/01/24 14:28) Anaphylaxis levofloxacin [Levaquin] Adverse Reaction (Unknown, Verified 02/01/24 14:28) achilles tendon issue stainless steel Allergy (Unknown, Uncoded 02/01/24 14:28) severe Derm reaction chlorine Adverse Reaction (Uncoded 02/01/24 14:28) Difficulty Breathing Do you need a note to return to daycare/school/sports/work: No HPI HPI Comments History of Present Illness Details 83 y/o female patient who presents to [facility] walk in clinic with c/o right knee pain. Denies any injury or trauma. [facility] Medical History Postmenopausal vaginal bleeding Hammertoe of second toe of right foot Tubular adenoma of colon Dyslipidemia Acquired hypothyroidism Essential hypertension Type 2 diabetes mellitus without complication, without long-term current use of insulin COPD (chronic obstructive pulmonary disease) Allergic rhinitis Surgical History Hx of right cataract extraction History of basal cell carcinoma excision History of colonoscopy Family History Father Cancer of prostate Mother COPD (chronic obstructive pulmonary disease) Polio Smoker Daughter Breast cancer H/O: hysterectomy Paternal Grandmother No problems noted. Brother Cancer of prostate Sister No problems noted. Sister No problems noted. Sister No problems noted. Son No problems noted. Maternal Grandmother No problems noted. Social History Housing: House Are you a primary healthcare social worker to a significant other at home: No Do you presently have visiting nurse or other home services: No Alcohol intake: current Patient Tobacco Use Status: Never used Tobacco e-Cigarette/Vaping Use: Never Used service: No Current occupational status: retired Cognitive needs: No Hearing needs: No Vision needs: Yes Review of Systems Const All systems reviewed & are unremarkable except as noted in HPI and below Physical Exam Vital Signs: Last Vital Signs Pulse 70 02/01/24 14:26 BP 130/80 02/01/24 14:26 Pulse Ox 98 02/01/24 14:26 Oxygen Delivery Method Room Air 02/01/24 14:26 BMI result Body Mass Index 30.2 Const General: cooperative and no acute distress Nutritional Appearance: overweight Orientation/consciousness: patient oriented x3 Neuro General: patient oriented x3, gait normal and moves all extremities Extrem Right lower extremity: normal to inspection, full ROM, normal capillary refill and knee Details: tenderness and normal ROM; no swelling, no ecchymosis and no crepitus Left lower extremity: normal to inspection, full ROM and normal capillary refill Psych Speech and movement: Normal speech and movement present Assessment & Plan Assessment & Plan (1) Primary osteoarthritis of right knee: Code(s): M17.11 - Unilateral primary osteoarthritis, right knee Plan: Knee brace Rest joint IceHot NSAIDs or Acetaminophen for pain relief. Orders: Orders PT Evaluation and Treatment Today M17.11 - Unilateral primary osteoarthritis, right knee Coding Level of Care Code Est Pt Level 3 (89063) Diagnoses Primary osteoarthritis of right knee M17.11 Time Spent (min) 15
[2024-02-01 14:26] VITALS: BP 130/80; PULSE 70; O2SAT 98; BMI 30.2
== END 2024-02-01 15:31 | disposition home or self-care (01) ==
PROVIDERS: PCP Internal Medicine; Visit Provider Nurse Practitioner Family
DX: M17.11 Unilateral primary osteoarthritis, right knee (principal)

== ENCOUNTER → 2024-02-01 13:48 | Outpatient (BNVA) | payer MEDICARE, OTHER, SELFPAY | PROVIDERS: PCP Internal Medicine; Visit Provider Nurse Practitioner Family | DX: S83.91XA Sprain of unspecified site of right knee, initial encounter (principal); M17.11 Unilateral primary osteoarthritis, right knee | CPT/HCPCS: 99212 ==

== ENCOUNTER 2024-06-16 07:03 | Outpatient (REF) | payer MEDICARE, OTHER, SELFPAY ==
[2024-06-16 07:56] LABS: Estimated Average Glucose 117 mg/dL; Hemoglobin A1C 121.0838 umol/L; Hemoglobin A1c % 5.7 % (<6.0)
[2024-06-16 08:10] LABS: Creatinine Urine 62.54 mg/dL; Microalbumin Urine < 5.0 mg/L
[2024-06-16 08:17] LABS: Alanine Aminotransferase 15 U/L (0-31); Anion Gap 14 (12-20); Aspartate Amino Transferase 25 U/L (5-31); Blood Urea Nitrogen 29 mg/dL (9-16); Calcium 9.9 mg/dL (8.4-10.2); Carbon Dioxide 21 mmol/L (22-29); Chloride 114 mmol/L (96-108); Cholesterol 145 mg/dL (<200); Estimated Glomerular Filt Rate 60; Glucose Fasting 97 mg/dL (60-99); HDL Cholesterol 69 mg/dL (>40); LDL Cholesterol Calculated 65 mg/dL (<100); Potassium 5.2 mmol/L (3.3-5.1); Sodium 144 mmol/L (135-145); Triglycerides 58 mg/dL (<150)
[2024-06-16 08:33] LABS: Free T4 (Free Thyroxine) 1.19 ng/dL (0.71-1.85); Thyroid Stimulating Hormone 0.39 uIU/mL (0.32-4.0); Vitamin D 25-OH Total 41.5 ng/mL (>30)
== END 2024-06-16 07:04 | disposition home or self-care (01) ==
LOC: HO.LAB 07:03
PROVIDERS: PCP Internal Medicine; Visit Provider Internal Medicine
DX: I10 Essential (primary) hypertension (principal); E03.9 Hypothyroidism, unspecified; E78.5 Hyperlipidemia, unspecified; E11.9 Type 2 diabetes mellitus without complications; Z78.0 Asymptomatic menopausal state
CPT/HCPCS: 36415; 80048; 80061; 82043; 82306; 82570; 83036; 84439; 84443; 84450; 84460

== ENCOUNTER 2024-06-20 08:59 | Outpatient (AMB) | payer MEDICARE, OTHER, SELFPAY ==
[2024-06-20 09:19] VITALS: BP 108/70; PULSE 70; RESP 16; TEMP 37; O2SAT 96
--- NOTE | 2024-06-20 09:19 | MHC.PC.OV ---
Vital Signs 06/20/24 09:19 Height 5 ft 2 in Weight 164 lb BMI 30.0 BP 108/70 Blood Pressure Location Rt brachial Position Sitting Respiration 16 Pulse 70 Pulse Source Pulse Oximeter Temp 98.6 F Temp Source Oral Pulse Oximetry (%) 96 Oxygen Delivery Method Room Air Intake Visit Reasons: 6m follow up Intake Note: Pt is here today for her 6mo. f/u Allergies bee pollen [bee stings] Allergy (Severe, Verified 06/20/24 09:53) Anaphylaxis levofloxacin [Levaquin] Adverse Reaction (Unknown, Verified 06/20/24 09:53) achilles tendon issue stainless steel Allergy (Unknown, Uncoded 06/20/24 09:53) severe Derm reaction chlorine Adverse Reaction (Uncoded 06/20/24 09:53) Difficulty Breathing Medication List - Last Reconciled 06/20/24 by Shilpi Austin MD aspirin (Adult Low Dose Aspirin) 81 mg PO DAILY atorvastatin 10 mg PO DAILY biotin 10,000 mcg PO DAILY cetirizine (Zyrtec) 10 mg PO DAILY cholecalciferol (vitamin D3) 50 mcg PO DAILY diltiazem HCl CD 180 mg PO QAM flaxseed oil 1,000 mg PO DAILY fluticasone propion-salmeterol 250-50 mcg/dose (Wixela Inhub) 1 inh inhalation BID 30 days fluticasone propionate 50 mcg/actuation (Allergy Relief (fluticasone)) 2 sprays intranasal DAILY 90 days glucosamine sulfate 1,000 mg PO ONCE Incruse Ellipta 62.5 mcg/actuation (umeclidinium) 1 inh PO DAILY NS irbesartan 150 mg PO BEDTIME levothyroxine 100 mcg PO DAILY metformin 1,000 mg PO BID montelukast 10 mg PO DAILY nystatin-triamcinolone 100,000-0.1 unit/g-% 1 appl topical DAILY PRN omega 5-kuv-eaq-fish oil 300-1,000 mg (Fish Oil) 1 cap PO DAILY psyllium husk (Metamucil) 1 tbsp PO DAILY Tobacco use date assessed: 06/20/24 Fall risk assessment: No Falls in past year Last assessed Fall Risk: 06/20/24 Dental Screening Dental Screen Date: 06/20/24 Did you have a dental visit in the last 12 months?: Yes Did you have a dental problem in the last 6 months where you did not have access to dental care?: No Was dental information given to patient?: Patient has dentist HPI 6m follow up HPI Details 83 year-old lady with history due hypertension, dyslipidemia, acquired hypothyroidism , type 2 diabetes mellitus and COPD, here today for a follow-up. Her blood pressure is well- controlled on losartan and diltiazem, fasting lipids, thyroid levels on recent labs are within normal limits. Diabetes mellitus stable and well controlled on metformin a 1000 mg taken 1 tablet twice a day with latest hemoglobin A1c at 5.7% . [facility] Medical History (Updated 06/25/24 @ 16:11 by Shilpi Austin MD) Postmenopausal vaginal bleeding Hammertoe of second toe of right foot Tubular adenoma of colon Dyslipidemia Acquired hypothyroidism Essential hypertension Type 2 diabetes mellitus without complication, without long-term current use of insulin COPD (chronic obstructive pulmonary disease) Allergic rhinitis Surgical History Hx of right cataract extraction History of basal cell carcinoma excision History of colonoscopy Family History Father Cancer of prostate Mother COPD (chronic obstructive pulmonary disease) Polio Smoker Daughter Breast cancer H/O: hysterectomy Paternal Grandmother No problems noted. Brother Cancer of prostate Sister No problems noted. Sister No problems noted. Sister No problems noted. Son No problems noted. Maternal Grandmother No problems noted. Social History Housing: House Are you a primary career technology teacher to a significant other at home: No Do you presently have visiting nurse or other home services: No Alcohol intake: current Patient Tobacco Use Status: Never used Tobacco e-Cigarette/Vaping Use: Never Used service: No Current occupational status: retired Cognitive needs: No Hearing needs: No Vision needs: Yes Questionnaire PHQ-9 Over the last 2 weeks, how often have you been bothered by any of the following problems? Depression Screening Interpretation: Negative Depression Screening Done: Yes Source: Developed by Drs. Rod Franz, Shy Velez, Dev Piper and colleagues, with an educational jag from [employer]. Thrive Questionnaire Date Thrive assessed: 06/19/24 I am a: Patient What is your living situation today?: I have a steady place to live Within the past 12 months, did the food you bought not last and you didn't have the money to get more?: Never true Within the past 12 months, did you worry whether your food would run out before you got money to buy more?: Never true Do you have trouble paying for medicines?: No Do you have trouble getting transportation to medical appointments?: No Do you have trouble paying your heating and electricity bill?: No Do you have trouble taking care of your child, family member or friend?: No Do you have trouble with day-to-day activities such as bathing, preparing meals, shopping, managing finances, etc.?: No Are you currently unemployed and looking for a job?: No Are you interested in more education?: No Please select the resources that you would like help with: None Currently or been in a relationship where the following occur: No concerns reported THRIVE Score: 0 AUDIT C Alcohol Use Questionnaire (AUDIT-C) 1. How often do you have a drink containing alcohol?: 4 or more times a week 2. How many drinks containing alcohol do you have on a typical day when you are drinking?: 1 or 2 3. How often do you have six or more drinks on one occasion?: Never Total Score: 4 RICA-7 AMB Questionnaire RICA-7 Date RICA - 7 assessed: 12/21/23 Feeling nervous, anxious, or on edge: 1 = Several days Not being able to stop or control worryin = Several days Worrying too much about different things: 1 = Several days Becoming easily annoyed or irritable: 1 = Several days Feeling afraid as if something awful might happen: 1 = Several days Source: Developed by Drs. Rod Franz, Shy Velez, Dev Piper and colleagues, with an educational jag from [employer]. Review of Systems Const All systems reviewed & are unremarkable except as noted in HPI and below Eyes Reports no additional complaints ENT Reports no additional complaints Card Denies chest pain, Denies irregular heart rhythm and Denies leg edema Resp Reports no additional complaints GI Reports no additional complaints Reports no additional complaints Musc Reports no additional complaints Skin/Breast Reports system reviewed and no additional complaints, except as documented Neuro Denies Abnormal speech present and Denies Sensory deficit (Neuro) Psych Reports no additional complaints Endo Reports no additional complaints Gurwinder/Lymph Denies easy bleeding and Denies easy bruising Aller/Immun Reports no additional complaints Physical exam (Primary Care) Vital Signs: Last Vital Signs Temp 98.6 F 06/20/24 09:19 Pulse 70 06/20/24 09:19 Resp 16 06/20/24 09:19 BP 108/70 06/20/24 09:19 Pulse Ox 96 06/20/24 09:19 Oxygen Delivery Method Room Air 06/20/24 09:19 BMI result Body Mass Index 30.0 Tobacco/Smoking Status: Tobacco use Status Tobacco use date assessed 06/20/24 06/20/24 09:23 Patient Tobacco Use Status Never used Tobacco 06/20/24 09:22 e-Cigarette/Vaping Use Never Used 06/20/24 09:22 Depression Screening Interpretation: Negative Thrive Assessment: Date of Thrive Assessment Date Thrive assessed 06/19/24 06/20/24 09:22 Currently or been in a relationship where the following occur: No concerns reported Const Other: Alert oriented x3, no acute distress noted, ambulatory with normal gait Orientation/consciousness: patient oriented x3 HENAR Head: Yes normocephalic General nose exam: Normal external nose present Face and sinus: Yes face symmetric Mouth: moist mucous membranes Eyes General: appearance normal, both eyes and all related structures Neck Neck: Yes full ROM, Yes no lymphadenopathy and Yes supple Resp Auscultation: clear to auscultation bilaterally Cardio Other: S1-S2 present regular rate and rhythm GI Palpation (GI): Soft to palpation, nontender and no guarding Auscultation: normal bowel sounds Skin General skin exam: no rashes or lesions noted Neuro General: patient oriented x3, gait normal, tone normal, moves all extremities, no focal motor deficits and CN's II-XI intact bilaterally Speech: No Abnormal speech present Sensory Exam: No Sensory deficit (Neuro) Extrem General: Yes full ROM, Yes no joint enlargement, Yes no clubbing, cyanosis or edema, Yes no calf tenderness and Yes normal gait Right lower extremity: foot (Her hammertoe right 2nd toe, bunion on right) Psych Appearance: grossly normal and well kempt Mental Status: mental status grossly normal Speech and movement: Normal speech and movement present Affect: normal affect Attitude: cooperative Thought process: Normal thought process present Thought content: Normal thought content present Results Reviewed Results Reviewed: Laboratory Tests 06/16/24 07:32 Estimat Average Glucose 117 Hemoglobin A1c % 5.7 Name: Roxane Rogers Age/Sex: 83/F : 1940 Unit#: [id number] Attend Dr: Shilpi Austin MD Re06/16/24 Status: DEP [facility] Disch: SPEC : [id number] BERNA[place]TE: 06/16/24 STATUS: COMP REQ : [id number] RECD: 06/16/[address]: Shilpi Austin MD COMP: 06/16/24 ENTERED: 06/16/[address] [facility] DR: ORDERED: Met Prof Fast, AST, ALT, Lipid Panel, Vitamin D 25-OH, Free T4, TSH Test Result Flag Reference Sodium 144 135-145 mmol/L Potassium 5.2 H 3.3-5.1 mmol/L CL 114 H 96-108 mmol/L CO2 21 L 22-29 mmol/L Gap 14 12-20 BUN 29 H 9-16 mg/dL Creat 0.90 0.5-1.4 mg/dL eGFR 60 Chronic Kidney Disease: Estimated GFR < 60 mL/min/1.73m2 Severe Kidney Disease: Estimated GFR < 15 mL/min/1.73m2 FBS 97 60-99 mg/dL CA 9.9 8.4-10.2 mg/dL AST (GOT) 25 5-31 U/L ALT (GPT) 15 0-31 U/L Triglyceride 58 <150 mg/dL Desirable Triglyceride: less than 150 mg/dL Borderline High Triglyceride 150-199 mg/dL High Triglyceride: 200-499 mg/dL Very High Triglyceride: greater than or equal to 5OO mg/dL Cholesterol 145 <200 mg/dL Desirable Cholesterol: less than 200 mg/dL Borderline High Cholesterol: 200-239 mg/dL High Cholesterol: greater than 239 mg/dL LDL Calculated 65 <100 mg/dL Desirable LDL: less than 100 mg/dL Near Optimal/Above Optimal LDL: 110-129 mg/dL Borderline High LDL: 130-159 mg/dL High LDL: 160-189 mg/dL Very High LDL: greater than or equal to 190 mg/dL HDL 69 >40 mg/dL Desirable HDL: greater than 40 mg/dL Note: This HDL assay may give artificially low results in patients with liver disease. Vitamin D 25-OH 41.5 >30 ng/mL Health Based Reference Values* < 20 ng/mL Deficient 20-30 ng/mL Insufficient > 30 ng/mL Sufficient *Britney DELATORRE. N Engl J Med. 2007;357:266-280 There is no well-established upper level of normal vitamin D levels. Some laboratories use 50 ng/mL as an upper limit of normal. However, toxicity is patient-dependent and may occur at any level. Careful correlation with the patient's presentation is necessary and, if there is concern for vitamin D toxicity, treatment should be considered irrespective of the serum level. Care must be taken in interpreting Vitamin D results from different laboratories and methodologies. Published data demonstrated that results from patients undergoing hemodialysis may show a negative bias when tested with various automated 25-OH vitamin D assays when compared to LC-MS/MS. When testing samples from patients whose predominant form of Vitamin D is Vitamin D2, such as patients receiving Vitamin D2 supplementation, results that are subtherapeutic should be confirmed with another method such as LC-MS/MS. Free T4 1.19 0.71-1.85 ng/dL TSH 3rd Gen. 0.39 0.32-4.0 uIU/mL Coding Level of Care Code Est Pt Level 4 (38105) Complex EM visit Add On G2211 Diagnoses Dyslipidemia E78.5 Acquired hypothyroidism E03.9 Essential hypertension I10 Type 2 diabetes mellitus without complication, without long-term current use of insulin E11.9 Assessment & Plan Assessment & Plan (1) Dyslipidemia: Code(s): E78.5 - Hyperlipidemia, unspecified Category: Medical Plan: Continue Lena 3 fatty acid supplements, and atorvastatin 10 mg daily (2) Acquired hypothyroidism: Code(s): E03.9 - Hypothyroidism, unspecified Category: Medical Plan: Thyroid levels are within normal limits, continue current dose of levothyroxine at 100 mcg daily in a.m. (3) Essential hypertension: Code(s): I10 - Essential (primary) hypertension Category: Medical Plan: Blood pressure at goal of less than 130/80. Continue with current medication. Reinforced importance of following a low sodium diet, getting regular exercise, and lowering stress levels. (4) Type 2 diabetes mellitus without complication, without long-term current use of insulin: Code(s): E11.9 - Type 2 diabetes mellitus without complications Category: Medical Plan: Diabetes mellitus stable and controlled at present, continue metformin 1000 mg taken 1 tablet twice a day, up-to-date with her diabetes retinopathy screening, Orders: Orders Hemoglobin A1c 12/16/24 E03.9 - Hypothyroidism, unspecified, E11.9 - Type 2 diabetes mellitus without complications, E78.5 - Hyperlipidemia, unspecified, I10 - Essential (primary) hypertension Alanine Aminotransferase 12/16/24 E03.9 - Hypothyroidism, unspecified, E11.9 - Type 2 diabetes mellitus without complications, E78.5 - Hyperlipidemia, unspecified, I10 - Essential (primary) hypertension Basic Metabolic Panel Fasting 12/16/24 E03.9 - Hypothyroidism, unspecified, E11.9 - Type 2 diabetes mellitus without complications, E78.5 - Hyperlipidemia, unspecified, I10 - Essential (primary) hypertension Lipid Panel 12/16/24 E03.9 - Hypothyroidism, unspecified, E11.9 - Type 2 diabetes mellitus without complications, E78.5 - Hyperlipidemia, unspecified, I10 - Essential (primary) hypertension Vitamin D 25-OH Total 12/16/24 E03.9 - Hypothyroidism, unspecified, E11.9 - Type 2 diabetes mellitus without complications, E78.5 - Hyperlipidemia, unspecified, I10 - Essential (primary) hypertension Free T4 (Free Thyroxine) 12/16/24 E03.9 - Hypothyroidism, unspecified, E11.9 - Type 2 diabetes mellitus without complications, E78.5 - Hyperlipidemia, unspecified, I10 - Essential (primary) hypertension Aspartate Amino Transferase 12/16/24 E03.9 - Hypothyroidism, unspecified, E11.9 - Type 2 diabetes mellitus without complications, E78.5 - Hyperlipidemia, unspecified, I10 - Essential (primary) hypertension Thyroid Stimulating Hormone 12/16/24 E03.9 - Hypothyroidism, unspecified, E11.9 - Type 2 diabetes mellitus without complications, E78.5 - Hyperlipidemia, unspecified, I10 - Essential (primary) hypertension
--- OUTSIDE RECORDS SUMMARY | 2024-06-20 09:41 | XMS_ITS | Clinical Summary ---
Author Organization [facility], Address [address] [place] [address] [place] [address] Phone Care Team Providers Care Scanning Clerk Name Role Phone Darrell Austin MD Primary Care Provider [phone] Allergies Active Allergy Reactions Criticality Noted Date Comments Levofloxacin Other (see comments) Low 05/21/2021 Medications tiotropium (SPIRIVA HANDIHALER) 18 MCG per inhalation capsule Comments: Filled Date: Jan 21 2017 12:00AM Duration: 90 Active montelukast (SINGULAIR) 10 MG tablet Take 10 mg by mouth 1 (one) time each day Active metFORMIN (GLUCOPHAGE) 1000 MG tablet Take 1,000 mg by mouth Active levothyroxine (SYNTHROID) 100 MCG tablet Take 100 mcg by mouth 1 (one) time each day Active irbesartan (AVAPRO) 150 MG tablet Take 150 mg by mouth 01/13/2017 Active atorvastatin (LIPITOR) 10 MG tablet Take 10 mg by mouth daily Active omega-3 (FISH OIL) 1000 MG capsule Take 1 capsule by mouth 1 (one) time each day Active dilTIAZem XR (DILACOR XR) 180 MG 24 hr capsule Comments: Filled Date: Jan 13 2017 12:00AM Patient Notes: TAKE ONE CAPSULE IN THE MORNING Duration: 90 01/13/2017 Active calcium carbonate (OS-WALT) 1250 (500 Ca) MG tablet Take 1 tablet by mouth 1 (one) time each day Active Umeclidinium [place] (INCRUSE ELLIPTA IN) Inhale Active aspirin 325 MG tablet Take 325 mg by mouth 1 (one) time each day Active Active Problems Problem Noted Date Diagnosed Date Type 2 diabetes mellitus 03/24/2019 Proteinuria 03/24/2019 Metabolic syndrome X 03/24/2019 Hypertensive disorder 03/24/2019 Immunizations Name Administration Dates Next Due Influenza Split High Dose Preservative Free IM 1 ,12/25/2015 Family History Medical History Relation Comments Cancer Father Prostate/prostat e Diabetes Father also grandmother Diabetes Maternal Grandmother Relation Status Comments Father Maternal Grandmother Mother Social History Tobacco Use Types Packs/Day Years Used Date Smoking Tobacco: Never Smokeless Tobacco: Never Alcohol Use Standard Drinks/Week Comments Yes 0 (1 standard drink = 0.6 oz pure alcohol) Alcoholic Drinks/day: Occasional social drink Comments Unknown Sex and Gender Information Value Date Recorded Sex Assigned at Not on file Legal Sex Female 4:33 PM EST Gender Identity Not on file Sexual Orientation Not on file Last Filed Vital Signs Vital Sign Reading Time Taken Comments Blood Pressure 110/60 02/20/2019 12:00 PM EST Pulse - - Temperature - - Respiratory Rate - - Oxygen Saturation - - Inhaled Oxygen Concentration - - Weight 82.1 kg (181 lb) 02/20/2019 12:00 PM EST Height 154.9 cm (5' 1 ) 02/20/2019 12:00 PM EST Body Mass Index 34.2 02/20/2019 12:00 PM EST Plan of Treatment Health Maintenance Due Date Last Done Comments Pneumococcal Vaccine: 65+ Years (1 of 2 - PCV) 08/12/1946 Diabetes: Ophthalmology Exam 03/24/2019 Diabetes: Pedal Pulse Checked 03/24/2019 Diabetes: Sensory Foot Exam 03/24/2019 Diabetes: Visual Foot Exam 03/24/2019 Diabetes: Hemoglobin A1C 08/28/2021 05/28/2021 Influenza Vaccine (#1) 2023 , 12/25/2015 Hepatitis B Vaccine Aged Out No longe r eligible based on patient's age to complete this topic Procedures Procedure Name Priority Date/Time Associated Diagnosis Comments HEMOGLOBIN A1C Routine 05/28/2021 4:44 PM EST from Last 3 Months or Most Recently Relevant to Health Maintenance Results * (ABNORMAL) Hemoglobin A1c (05/28/2021 4:44 PM EST) Hemoglobin A1C 5.7(H) (4.0-5.6) % [facility] Comment: MONITORING: In known diabetic patients, hemoglobin A1c targets should be discussed with health care provider. DIAGNOSTIC USE: ??The [place] Diabetes Association (ADA) and the World Health Organization (WHO) recommend the use of HbA1c to diagnose diabetes using a threshold of 6.5%. Patients who have an HbA1c between 5.7% and 6.4% are considered at increased risk for developing diabetes in the future. CAUTION: Falsely low HbA1c results may be observed in patients with hemolytic anemia, homozygous forms of abnormal hemoglobin (e.g. SS, CC, SC), , recent blood loss or hemoglobin F greater than 7%. Fructosamine may be used as an alternate test in these cases. REFERENCE: ADA: Standards of Medical Care in Diabetes 2020, The Journal of Clinical and Applied Research and Education Volume 43, Supplement 1 Testing performed or reported by [facility] [employer], a Service of [facility], [address] [place] [id number] Garcia Lagos MD, Fashion Director [facility]# [id number] 05/28/2021 4:44 PM EST 05/28/2021 4:48 PM EST us David Estrella MD LAB BLOOD ORDERABLES Final Res ult [facility] from Last 3 Months or Most Recently Relevant to Health Maintenance Insurance [facility] Care Teams Scanning Clerk Relationship Specialty Start Date End Date Darrell Austin MD [address] [place] [address] PCP - General 01/24/19
--- OUTSIDE RECORDS SUMMARY | 2024-06-20 09:41 | XMS_ITS | Clinical Summary ---
Author Organization 175 [facility] Address 175 [place] [address] Phone Care Team Providers Care Accountant Cost Name Role Phone Shilpi Austin MD Primary Care Provider Allergies Active Allergy Reactions Criticality Noted Date Comments Levofloxacin Other Low 05/21/2021 Medications aspirin 325 mg tablet Take 1 Tablet by mouth. Active atorvastatin (LIPITOR) 10 mg tablet Take 1 Tablet by mouth. Active calcium carbonate (OS-WALT) 1,250 mg (500 mg elemental calcium) tablet Take 1 Tablet by mouth. Active dilTIAZem XR (DILACOR XR) 180 mg 24 hr capsule Comments: Filled Date: Jan 13 2017 12:00AM Patient Notes: TAKE ONE CAPSULE IN THE MORNING Duration: 90 01/13/2017 Active irbesartan (AVAPRO) 150 mg tablet Take 1 Tablet by mouth. 01/13/2017 Active levothyroxine (SYNTHROID, LEVOTHROID) 100 mcg tablet Take 1 Tablet by mouth. Active metFORMIN (GLUCOPHAGE) 1,000 mg tablet Take 1 Tablet by mouth. Active montelukast (SINGULAIR) 10 mg tablet Take 1 Tablet by mouth. Active omega-3 acid ethyl esters (LOVAZA) 1 gram capsule Take 1 Capsule by mouth. Active tiotropium (SPIRIVA) 18 mcg per inhalation capsule Comments: Filled Date: Jan 21 2017 12:00AM Duration: 90 Active Encounters Date Type Department Care Team Description 06/06/2024 10:30 AM EDT Office Visit Orthopedic Surgery [facility] [address] [phone] Hany Herbert DPM Acquired hallux valgus of right foot (Primary Dx); Acquired hallux valgus of left foot; Acquired hammer toe of right foot; Hammer toe of left foot; Dermatophytosis of nail 03/23/2024 10:30 AM EST Office Visit Orthopedic Surgery [place] [address] [phone] Hany Herbert DPM Follow-up exam (Primary Dx); Acquired hallux valgus of right foot; Acquired hallux valgus of left foot; Acquired hammer toe of right foot; Hammer toe of left foot; Dermatophytosis of nail from Last 3 Months Social History Tobacco Use Types Packs/Day Years Used Date Smoking Tobacco: Never Assessed Comments Unknown Sex and Gender Information Value Date Recorded Sex Assigned at Not on file Legal Sex Female 8:25 PM EST Gender Identity Not on file Sexual Orientation Not on file Last Filed Vital Signs Vital Sign Reading Time Taken Comments Blood Pressure - - Pulse - - Temperature - - Respiratory Rate - - Oxygen Saturation - - Inhaled Oxygen Concentration - - Weight 74.4 kg (164 lb) 06/06/2024 10:20 AM EDT Height 156.2 cm (5' 1.5 ) 06/06/2024 10:20 AM ED T Body Mass Index 30.49 06/06/2024 10:20 AM EDT Plan of Treatment Upcoming Encounters Date Type Department Care Team (Late st Contact Info) Description 08/07/2024 10:30 AM EDT Office Visit Orthopedic [facility] [address] [phone] Hany Herbert DPM [address] [address] Health Maintenance Due Date Last Done Comments Diabetes: Annual GFR (Glomerular Filtration Rate) 1941 Diabetes: Annual Foot Exam 08[birth year]12/1950 Diabetes: Annual Retina Eye Exam 08[birth year]12/1950 DTaP,Tdap,and Td Vaccines (1 - Tdap) 1960 RSV Immunization Patients 60+ Years Old (1 - 1-dose 75+ series) 2016 Cholesterol Screening (Lipid Panel) 04/16/2023 Depression Screening 04/16/2023 Falls Risk Assessment 04/16/2023 Medicare Annual Wellness Visit 04/16/2023 Osteoporosis Screening (Bone Density Screening) 04/16/2023 Social Influencers of Health Screening 04/16/2023 COVID-19 Vaccine ( season) 2023 12/09/2021, 02/07/2021, 05/15/2020, Additional history exists Diabetes: Annual Urine Albumin-Creatinine Ratio (uACR) 06/06/2024 Diabetes: Blood Sugar Control Test (HGBA1C) 06/06/2024 05/28/2021 Hypertension/CHF/CAD Annual BMP Blood Test 06/06/2024 Zoster Vaccines Completed 04/02/2023, 0805/2022, 11/10/2013 Pneumococcal Vaccine: 50+ Years Completed 07/16/2023, 08/21/2015 Influenza Vaccine Completed 01/13/2024, , 12/09/2021, Additional history exists HIB Vaccines Aged Out No longer eligi ble based on patient's age to complete this topic HPV Vaccines Aged Out No longer eligi ble based on patient's age to complete this topic Hepatitis A Vaccines Aged Out No long er eligible based on patient's age to complete this topic Hepatitis B Vaccines Aged Out No long er eligible based on patient's age to complete this topic IPV Vaccines Aged Out No longer eligi ble based on patient's age to complete this topic MMR Vaccines Aged Out No longer eligi ble based on patient's age to complete this topic Meningococcal ACWY Vaccine Aged Out N o longer eligible based on patient's age to complete this topic Meningococcal B Vacine Aged Out No lo nger eligible based on patient's age to complete this topic RSV Immunization Patients Under 20 months Aged Out No longer eligible based on patient's age to complete this topic Varicella Vaccines Aged Out No longer eligible based on patient's age to complete this topic Procedures Procedure Name Priority Date/Time Associated Diagnosis Comments XR FOOT 3+ VIEWS BILAT Routine 03/23/2024 10:14 AM EST Follow-up exam from Last 3 Months Results * XR Foot 3+ Views bilat (03/23/2024 10:14 AM EST) Anatomical Region Laterality Modality Lower Extremities, Foot Bilateral Computed Radiography Narrative 03/23/2024 10:19 AM EST Right foot ??3 views No fracture. No radiopaque foreign first ray ??moderate severe ??toes ?? Hammer toes ?? moderate severe ??joint spaces forefoot ?? Arthritis mild ? joint spaces midfoot ? Arthritis mild ? joint spaces hindfoot ? Arthritis mild ? Foot position Pes planus with Talus navicular uncovering decreased calcaneal inclination anterior displaced symes line talus navicular joint to calcaneal cuboid joint ?? Left foot 3 views No fracture. No radiopaque foreign first ray ??moderate severe ??toes ?? Hammer toes ?? moderate severe ??joint spaces forefoot ?? Arthritis mild ? joint spaces midfoot ? Arthritis mild ? joint spaces hindfoot ? Arthritis mild ? Foot position Pes planus with Talus navicular uncovering decreased calcaneal inclination anterior displaced symes line talus navicular joint to calcaneal cuboid joint ?? Hany Herbert DPM IMG XR PROCEDURES Final R esult from Last 3 Months Insurance MEDICARE [facility] Care Teams Accountant Cost Relationship Specialty Start Date End Date Shilpi Austin MD [address] [place] [address] PCP - General 05/20/22
--- OUTSIDE RECORDS SUMMARY | 2024-06-20 09:41 | XMS_ITS | Patient Health Record ---
Author Organization [facility] Address [address] [place] [address] Care Team Providers Care Sweatband Separator Name Role Phone Geovanna GIBBONS, Shilpi Primary Care Provider Rod Jackson Unavailable [phone] Allergies Allergen (clinical drug ingredient) Drug/Non Drug Allergy documented on EMR Reaction Allergy Type Onset Date Status levofloxacin Levofloxacin Unknown Drug Allergy A ctive enviromental (uncoded) Unknown Allergy Active Chlorine chlorine (uncoded) Unknown Allergy A ctive Stainless Steel stainless steel (uncoded) Unknown Allergy Active bees (uncoded) Unknown Allergy Activ e Reason For Referral No Information Medications Medication SIG (Take, Route, Frequency, Duration) Notes Start Date End Date Status dilTIAZem HCl 180mg Active Fluticasone Propionate Active Glucosamine 750 MG 2 tablets Orally in am Active Montelukast Sodium 10 MG Oral for 90 Active Atorvastatin Calcium 10 MG Oral for 90 Active Vitamin D3 5000iu Ac tive Symbicort 80-4.5 MCG/ACT Inhalation for 90 Active Biotin Active Irbesartan 150 MG Oral for 90 Active Aspirin 325 MG 1 tablet Orally Once a day for 30 day(s) Active Cetirizine HCl 10 MG 1 tablet Orally Onc e a day Active metFORMIN HCl 1000 MG Oral for 90 Active Fish Oil Active dilTIAZem HCl ER Coated Beads 180 MG Oral for 90 Active Flaxseed Oil Active Incruse Ellipta 62.5 MCG/INH Inhalation for 90 Active Metamucil Active Synthroid 100 MCG Oral for 90 Active Immunizations Vaccine Route Administration Date Status Comme nts Influenza Unknown 12/20/2020 Administered Problems Problem Type SNOMED Code ICD Code Onset Dates Problem Status W/U Status Risk Notes Problem Irritable bowel syndrome (59484551) Irritable bowel syndrome (K58.9) Active confirmed Plan Of Treatment Future Test Test Name Order Date COLONOSCOPY 10/07/2012 Insurance Providers Payer Name Payer Address Payer Phone Subscriber Number Group Number Insured Name Patient Relationship to Insured Coverage Start Date Coverage End Date MEDICARE OF [place] [address] [place] [address] [phone] [id number] TIERNEY MARTIN Self - patient is the insured [facility] [address] [place] [address] [id number] TIERNEY MARTIN Self - patient is the insured Medical (General) History Medical History History ICD Code Colonoscopy 05-14-2003--2 sma ll tubular adenomas removed-diverticulosis and internal hemorrhoids Hypertension Hypothyroidism Asthma COPD Denies [place],CVA,renal disease Hyperlipidemia Colonoscopy 11/2012 with a small tubular adenoma removed NIDDM Irritable bowel syndrome that is well co ntrolled on Metamucil Surgical History Surgery Date(Month/Year) Skin cancers/cysts
== END 2024-06-20 10:22 | disposition home or self-care (01) ==
LOC: HO.HMCC 09:00
PROVIDERS: PCP Internal Medicine; Visit Provider Internal Medicine
DX: E78.5 Hyperlipidemia, unspecified (principal); E03.9 Hypothyroidism, unspecified; I10 Essential (primary) hypertension; E11.9 Type 2 diabetes mellitus without complications

== ENCOUNTER → 2024-06-20 08:59 | Outpatient (BNVA) | payer MEDICARE, OTHER, SELFPAY | PROVIDERS: PCP Internal Medicine; Visit Provider Internal Medicine | DX: E78.5 Hyperlipidemia, unspecified (principal); E03.9 Hypothyroidism, unspecified; E11.9 Type 2 diabetes mellitus without complications; I10 Essential (primary) hypertension | CPT/HCPCS: 99212 ==

== ENCOUNTER 2024-07-13 09:41 | Outpatient (AMB) | payer MEDICARE, OTHER, SELFPAY ==
[2024-07-13 10:02] VITALS: BP 120/52; PULSE 60; O2SAT 96; BMI 30.6
--- NOTE | 2024-07-13 10:02 | A.OFFVIS_ITS ---
Vital Signs 07/13/24 10:02 Height 5 ft 2 in Weight 167 lb 8.821 oz BMI 30.6 BP 120/52 L Blood Pressure Location Lt brachial Position Sitting Pulse 60 Pulse Source Pulse Oximeter Pulse Oximetry (%) 96 Oxygen Delivery Method Room Air Intake Visit Reasons: COPD Intake Note: pt is here for follow up and states she is feeling okay with her breathing. pt needs refill both inhalers sent to [facility] for 90 days 3 with 3 refills. Operations And Maintenance Technician Required: No Allergies bee pollen [bee stings] Allergy (Severe, Verified 07/13/24 10:33) Anaphylaxis levofloxacin [Levaquin] Adverse Reaction (Unknown, Verified 07/13/24 10:33) achilles tendon issue stainless steel Allergy (Unknown, Uncoded 07/13/24 10:33) severe Derm reaction chlorine Adverse Reaction (Uncoded 07/13/24 10:33) Difficulty Breathing Medication List - Last Reconciled 07/13/24 by Anam Gibson MD aspirin (Adult Low Dose Aspirin) 81 mg PO DAILY atorvastatin 10 mg PO DAILY biotin 10,000 mcg PO DAILY cetirizine (Zyrtec) 10 mg PO DAILY cholecalciferol (vitamin D3) 50 mcg PO DAILY diltiazem HCl CD 180 mg PO QAM flaxseed oil 1,000 mg PO DAILY fluticasone propion-salmeterol 250-50 mcg/dose (Wixela Inhub) 1 inh inhalation BID 30 days fluticasone propionate 50 mcg/actuation (Allergy Relief (fluticasone)) 2 sprays intranasal DAILY 90 days glucosamine sulfate 1,000 mg PO ONCE Incruse Ellipta 62.5 mcg/actuation (umeclidinium) 1 inh PO DAILY NS irbesartan 150 mg PO BEDTIME levothyroxine 100 mcg PO DAILY metformin 1,000 mg PO BID montelukast 10 mg PO DAILY nystatin-triamcinolone 100,000-0.1 unit/g-% 1 appl topical DAILY PRN omega 9-nuo-ejl-fish oil 300-1,000 mg (Fish Oil) 1 cap PO DAILY psyllium husk (Metamucil) 1 tbsp PO DAILY Do you need a note to return to daycare/school/sports/work: No HPI HPI COPD: Details: Roxane, 83 years old very pleasant female, is here for her routine follow-up after 6 months. She is being treated for longstanding history of COPD, and allergic rhinitis. She has stayed very well without any acute exacerbation. Now during the spring season there is increased level of allergies and she has more frequent nasal congestion. But it has not affected her breathing. She continues to use Wixela and Incruse Ellipta and albuterol only p.r.n.. [facility] Medical History (Updated 07/13/24 @ 12:01 by Anam Gibson MD) Postmenopausal vaginal bleeding Hammertoe of second toe of right foot Tubular adenoma of colon Dyslipidemia Acquired hypothyroidism Essential hypertension Type 2 diabetes mellitus without complication, without long-term current use of insulin COPD (chronic obstructive pulmonary disease) Allergic rhinitis Surgical History Hx of right cataract extraction History of basal cell carcinoma excision History of colonoscopy Family History Father Cancer of prostate Mother COPD (chronic obstructive pulmonary disease) Polio Smoker Daughter Breast cancer H/O: hysterectomy Paternal Grandmother No problems noted. Brother Cancer of prostate Sister No problems noted. Sister No problems noted. Sister No problems noted. Son No problems noted. Maternal Grandmother No problems noted. Social History Housing: House Are you a primary spiritual care coordinator to a significant other at home: No Do you presently have visiting nurse or other home services: No Alcohol intake: current Patient Tobacco Use Status: Never used Tobacco e-Cigarette/Vaping Use: Never Used service: No Current occupational status: retired Cognitive needs: No Hearing needs: No Vision needs: Yes Review of Systems Const All systems reviewed & are unremarkable except as noted in HPI and below Eyes Reports no additional complaints ENT Reports nasal congestion and Reports nasal discharge (Off and on) Card Denies chest pain, Denies irregular heart rhythm and Denies leg edema Resp Reports as per HPI GI Reports no additional complaints Reports no additional complaints Musc Reports no additional complaints Skin/Breast Reports system reviewed and no additional complaints, except as documented Neuro Reports no additional complaints Psych Reports no additional complaints Physical Exam Vital Signs: Last Vital Signs Pulse 60 07/13/24 10:02 BP 120/52 L 07/13/24 10:02 Pulse Ox 96 07/13/24 10:02 Oxygen Delivery Method Room Air 07/13/24 10:02 BMI result Body Mass Index 30.6 Const General: comfortable, no acute distress, alert and awake Orientation/consciousness: patient oriented x3 HEENT Head: Yes normal to inspection General nose exam: No nasal polyps present, No nasal discharge present and Other nasal findings present (Mild nasal congestion) Face and sinus: Yes sinuses nontender Mouth: oropharynx normal (No thrush noted at this time) Throat: Yes posterior oropharynx normal Eyes General: appearance normal, both eyes and all related structures Neck Neck: Yes normal visual inspection, Yes no lymphadenopathy, Yes trachea midline and Yes no JVD Thyroid: Thyroid normal Chest Chest palpation & inspection: normal inspection of the chest, normal palpation of entire chest wall and no tenderness Resp Other: Percussion note resonant, breath sounds are equal on both sides is moderately distant with prolonged expiratory phase. No wheezes rhonchi or crepitations are heard. Cardio Palpation: normal PMI Rate: regular rate Rhythm: regular rhythm Heart sounds: no gallops and no murmurs GI Palpation (GI): Soft to palpation, nontender, No hepatosplenomegaly present and no masses Auscultation: normal bowel sounds Back/Spine/Pelvis Thoracic/Lumbar Spine: thoracic and lumbar spine normal to inspection Skin General skin exam: no rashes or lesions noted Neuro General: patient oriented x3 and no focal motor deficits Cranial nerves: Yes CN's II-XII intact bilaterally Extrem General: Yes normal to inspection, Yes no clubbing, cyanosis or edema and Yes no calf tenderness Psych Appearance: grossly normal and well kempt Speech and movement: Normal speech and movement present Office Procedures Spirometry Testing Spirometry Comments: prosper done 71598- Spirometry Results Reviewed Results Reviewed: spirometry 200501/11/25 FVC 90 % 88 % 85 % FEV1 57 % 66 % 64 % FEF 25-75 19 % 38 5 31 % Assessment & Plan Assessment & Plan (1) COPD (chronic obstructive pulmonary disease): Comment: 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 Has remained very Stable and controlled . Spirometry : Flow volumes remain stable as compared to last spirometry in 2022. Code(s): J44.9 - Chronic obstructive pulmonary disease, unspecified Category: Medical Plan: Advised to continue Wixela 250-50 1 inhalation b.i.d. Incruse Ellipta 1 inhalation daily And albuterol HFA 2 puffs Q 6 hours p.r.n. (2) Allergic rhinitis: Comment: Seasonal , Stable , and controlled. Code(s): J30.9 - Allergic rhinitis, unspecified Category: Medical Plan: Continue using Flonase-50 1 spray in each nostril b.i.d. or 2 spray in each nostril once a day Continue montelukast 10 mg daily. May use cetirizine or loratadine 10 mg once a day as needed Orders: Orders AMB Spirometry Testing Today J44.9 - Chronic obstructive pulmonary disease, unspecified Coding Level of Care Code Est Pt Level 3 (94162) Diagnoses COPD (chronic obstructive pulmonary disease) J44.9 Allergic rhinitis J30.9 CPT Codes Spirometry - CPT: 03842- Spirometry ([id number])
--- OUTSIDE RECORDS SUMMARY | 2024-07-13 10:44 | XMS_ITS | Clinical Summary ---
Author Organization 175 [facility] Address 175 [place] [address] Phone Care Team Providers Care Business Continuity Planning Director Name Role Phone Shilpi Austin MD Primary [...] 10:30 AM EDT Office Visit Orthopedic Surgery [facility] [address] [phone] Hany Herbert DPM Acquired hallux valgus of [...] 08/07/2024 10:30 AM EDT Office Visit Orthopedic Surgery - [place] [address] [phone] Hany Herbert, DPM [address] [address] Health Maintenance Due Date Last Done Comments Diabetes: Annual GFR (Glomerular Filtration Rate) 1941 Diabetes: Annual Foot Exam 08[birth year]12/1950 Diabetes: Annual Retina Eye Exam 08[birth year]12/1950 DTaP,Tdap,and Td Vaccines (1 - Tdap) 1960 RSV Immunization Adult Patients (1 - 1-dose 75+ series) 2016 Cholesterol [...] Blood Test 06/06/2024 Zoster Vaccines Completed 04/02/2023, 05/2022, 11/10/2013 Pneumococcal Vaccine: 50+ Years Completed 07/16/2023, [...] age to complete this topic Meningococcal B Vaccine Aged Out No l onger eligible based on patient's age to complete this topic RSV Immunization Patients Under 20 months Aged Out No longer eligible based on patient's age to complete this topic Varicella Vaccines Aged Out No longer eligible based on patient's age to complete this topic Insurance [facility] Care Teams Business Continuity Planning Director Relationship Specialty Start Date End Date Shilpi Austin MD [address] [place] [address] PCP - General 05/20/22
--- OUTSIDE RECORDS SUMMARY | 2024-07-13 10:44 | XMS_ITS | Clinical Summary ---
Author Organization [facility], Address [address] [place] [address] [place] [address] Phone Care Team Providers Care Medicine Worker Name Role Phone Darrell Austin MD Primary Care Provider [phone] Allergies Active Allergy Reactions Criticality Noted Date [...] 1 (one) time each day Active Umeclidinium [place] (INCRUSE ELLIPTA IN) Inhale Active aspirin 325 MG tablet Take 325 mg by mouth 1 (one) time each day Active Active Problems Problem Noted Date Diagnosed Date Type 2 diabetes mellitus 03/24/2019 Proteinuria 03/24/2019 Metabolic syndrome X 03/24/2019 Hypertensive disorder 03/24/2019 Immunizations Immunization Administration Dates Next Due Influenza Split High [...] Due Date Last Done Comments Pneumococcal Vaccine: 50+ Years (1 of 1 - PCV) 08/12/1991 Diabetes: Ophthalmology Exam 03/24/2019 Diabetes: Pedal Pulse Checked 03/24/2019 Diabetes: Sensory Foot Exam 03/24/2019 Diabetes: Visual Foot Exam 03/24/2019 Diabetes: Hemoglobin A1C 08/28/2021 05/28/2021 Influenza Vaccine (Season Ended) 2024 12/23/2018, 12/25/2015 Hepatitis B Vaccine Aged Out No longe r eligible based on patient's age to complete this topic Procedures Procedure Name Priority Date/Time Associated Diagnosis Comments HEMOGLOBIN A1C Routine 05/28/2021 4:44 PM EST from Last 3 Months or Most Recently Relevant to Health Maintenance Results * (ABNORMAL) Hemoglobin A1c (05/28/2021 4:44 PM EST) Hemoglobin A1C 5.7(H) (4.0-5.6) % [facility] Comment: MONITORING: In known diabetic patients, hemoglobin A1c targets should be discussed with health care provider. DIAGNOSTIC USE: ??The [place] Diabetes Association (ADA) and the World Health [...] Supplement 1 Testing performed or reported by [facility], a Service of [facility], [address] [place] [id number] Garcia Lagos MD, Newspaper Managing Editor [facility]# [id number] 05/28/2021 4:44 PM EST 05/28/2021 4:48 PM EST us David Estrella MD LAB BLOOD ORDERABLES Final Res ult [facility] from Last 3 Months or Most Recently Relevant to Health Maintenance Insurance Medicare [facility] Care Teams Medicine Worker Relationship Specialty Start Date End Date Darrell Austin MD [facility] [place] [address] PCP - General 01/24/19
--- OUTSIDE RECORDS SUMMARY | 2024-07-13 10:44 | XMS_ITS | Patient Health Record ---
Author Organization [facility] Address [address] [place] [address] Care Team Providers Care Test Boring Crew Chief Name Role Phone Geovanna GIBBONS, Shilpi Primary Care Provider Rod Jackson Unavailable [phone] Allergies Allergen (clinical drug ingredient) Drug/Non Drug [...] Status Risk Notes Problem Irritable bowel syndrome (95265463) Irritable bowel syndrome (K58.9) Active confirmed Plan Of Treatment Future Test Test Name Order Date COLONOSCOPY 10/07/2012 Insurance Providers Payer Name Payer Address Payer Phone Subscriber Number Group Number Insured Name Patient Relationship to Insured Coverage Start Date Coverage End Date MEDICARE OF [place] [address] [place] [id number] [phone] [id number] TIERNEY MARTIN Self - patient is the insured [facility] [address] [place] [phone] [id number] TIERNEY MARTIN Self - patient is the insured Medical (General) History Medical History History ICD Code Colonoscopy 05-14-2003--2 sma ll tubular adenomas removed-diverticulosis and internal hemorrhoids Hypertension Hypothyroidism Asthma COPD Denies [place],CVA,renal disease Hyperlipidemia Colonoscopy 11/2012 with a small tubular adenoma removed NIDDM Irritable bowel syndrome that is well co ntrolled on Metamucil Surgical History Surgery Date(Month/Year) Skin cancers/cysts
== END 2024-07-13 10:56 | disposition home or self-care (01) ==
LOC: HO.HPS 09:42
PROVIDERS: PCP Internal Medicine; Visit Provider Internal Medicine
DX: J44.9 Chronic obstructive pulmonary disease, unspecified (principal); J30.9 Allergic rhinitis, unspecified
CPT/HCPCS: 94010; 99213

== ENCOUNTER → 2024-07-13 09:41 | Outpatient (BNVA) | payer MEDICARE, OTHER, SELFPAY | PROVIDERS: PCP Internal Medicine; Visit Provider Internal Medicine | DX: J44.9 Chronic obstructive pulmonary disease, unspecified (principal); J30.9 Allergic rhinitis, unspecified | CPT/HCPCS: 94010; 99212 ==

== ENCOUNTER 2024-08-16 14:07 | Outpatient (REF) | payer MEDICARE, OTHER, SELFPAY ==
--- OUTSIDE RECORDS SUMMARY | 2024-08-16 15:00 | XMS_ITS | Clinical Summary ---
Author Organization 175 [facility] Address [address] [place] [address] Phone Care Team Providers Care Reliability Technician Name Role Phone Shilpi Austin MD Primary [...] 10:30 AM EDT Office Visit Orthopedic Surgery [facility] [address] [phone] Hany Herbert DPM Acquired hallux valgus of [...] Care Team (Late st Contact Info) Description 08/24/2024 1:30 PM EDT Office Visit Orthopedic Surgery - [place] [address] [phone] Hany Herbert, DPM [address] [address] Health Maintenance Due Date Last Done Comments [...] patient's age to complete this topic Insurance [facility] Care Teams Reliability Technician Relationship Specialty Start Date End Date Shilpi Austin MD [address] [facility] [place] [address] PCP - General 05/20/22
== END 2024-08-16 14:08 | disposition home or self-care (01) ==
LOC: HO.MAMMO 14:07
PROVIDERS: PCP Internal Medicine; Visit Provider Internal Medicine
DX: Z12.31 Encounter for screening mammogram for malignant neoplasm of breast (principal)
CPT/HCPCS: 77063; 77067

== ENCOUNTER → 2024-08-16 14:45 | Outpatient (BNV) | payer MEDICARE, OTHER, SELFPAY | PROVIDERS: PCP Internal Medicine; Visit Provider Internal Medicine | DX: Z12.31 Encounter for screening mammogram for malignant neoplasm of breast (principal) | CPT/HCPCS: 77063; 77067 ==

== ENCOUNTER 2024-12-15 06:12 | Outpatient (REF) | payer MEDICARE, OTHER, SELFPAY ==
--- OUTSIDE RECORDS SUMMARY | 2024-12-15 06:15 | XMS_ITS | Clinical Summary ---
Author Organization 175 [facility] Address [address] [place] [address] Phone Care Team Providers Care Network Announcer Name Role Phone Shilpi Austin MD Primary [...] Encounters Date Type Department Care Team Description 10/25/2024 10:15 AM EDT Office Visit Orthopedic Surgery [facility] [address] [phone] Hany Herbert DPM Acquired hallux valgus of [...] Care Team (Late st Contact Info) Description 01/03/2025 10:00 AM EDT Office Visit Orthopedic Surgery - [place] [address] [phone] Hany Herbert, DPM [address] [phone] Health Maintenance Due Date Last Done Comments Diabetes: Annual GFR (Glomerular Filtration Rate) 1941 Diabetes: Annual Foot Exam 08/12/1951 Diabetes: Annual Retina Eye Exam 08/12/1951 DTaP,Tdap,and Td Vaccines (1 - Tdap) 1960 RSV Immunization Adult Patients (1 - 1-dose 75+ series) 2016 Cholesterol Screening (Lipid Panel) 04/16/2023 Falls Risk Assessment 04/16/2023 Medicare Annual Wellness Visit 04/16/2023 Osteoporosis Screening (Bone Density Screening) 04/16/2023 Social Influencers of Health Screening 04/16/2023 Depression Screening 03/22/2024 Diabetes: Annual Urine Albumin-Creatinine Ratio (uACR) 06/06/2024 Diabetes: Blood Sugar Control Test (HGBA1C) 06/06/2024 05/28/2021 Hypertension/CHF/CAD Annual BMP Blood Test 06/06/2024 COVID-19 Vaccine ( season) 2024 12/09/2021, 02/07/2021, 05/15/2020, Additional history exists Influenza Vaccine (#1) 2024 , 01/30/2023, 12/09/2021, Additional history exists Zoster Vaccines Completed 04/02/2023, 05/2022, 11/10/2013 Pneumococcal Vaccine: 50+ Years Completed 07/16/2023, 08/21/2015 HIB Vaccines Aged Out No longer eligi [...] patient's age to complete this topic Insurance [facility] Care Teams Network Announcer Relationship Specialty Start Date End Date Shilpi Austin MD [address] [place] [address] PCP - General 05/20/22
--- OUTSIDE RECORDS SUMMARY | 2024-12-15 06:15 | XMS_ITS | Clinical Summary ---
Author Organization [facility], Address [address] [place] [address] [place] [address] Phone Care Team Providers Care Sewing Room Supervisor Name Role Phone Darrell Austin MD Primary Care Provider [phone]- [phone] Allergies Active Allergy Reactions Criticality Noted Date [...] 1 (one) time each day Active Umeclidinium [place] (INCRUSE ELLIPTA IN) Inhale Active aspirin 325 [...] Hemoglobin A1C 08/28/2021 05/28/2021 Influenza Vaccine (#1) 2024 , 12/25/2015 Hepatitis B Vaccine Aged Out No longe r eligible based on patient's age to complete this topic Procedures Procedure Name Priority Date/Time Associated Diagnosis Comments HEMOGLOBIN A1C Routine 05/28/2021 4:44 PM EST from Last 3 Months or Most Recently Relevant to Health Maintenance Results * (ABNORMAL) Hemoglobin A1c (05/28/2021 4:44 PM EST) Hemoglobin A1C 5.7(H) (4.0-5.6) % [facility] Comment: MONITORING: In known diabetic patients, hemoglobin A1c targets should be discussed with health care provider. DIAGNOSTIC USE: The [place] Diabetes Association (ADA) and the World Health [...] Supplement 1 Testing performed or reported by [facility] [employer], a Service of [facility], [address] [place] [address] Garcia Lagos MD, Special Education Curriculum Specialist [facility]# [id number] 05/28/2021 4:4 4 PM EST 05/28/2021 4:48 PM EST us David Estrella MD LAB BLOOD ORDERABLES Final Res ult [facility] from Last 3 Months or Most Recently Relevant to Health Maintenance Insurance Medicare [facility] Care Teams Sewing Room Supervisor Relationship Specialty Start Date End Date Darrell Austin MD [facility] [place] [address] PCP - General 01/24/19
--- OUTSIDE RECORDS SUMMARY | 2024-12-15 06:15 | XMS_ITS | Patient Health Record ---
Author Organization [facility] Address [address] [place] [address] Care Team Providers Care Sat Act Instructor Name Role Phone Geovanna GIBBONS, Shilpi Primary Care Provider Rod Jackson Unavailable [phone] Allergies Allergen (clinical drug ingredient) Drug/Non Drug Allergy documented on EMR Reaction Allergy Type Onset Date Status enviromental (uncoded) Unknown Allergy Active Chlorine chlorine (uncoded) Unknown Allergy A ctive Stainless Steel stainless steel (uncoded) Unknown Allergy Active bees (uncoded) Unknown Allergy Activ e levofloxacin Levofloxacin Unknown Drug Allergy A ctive Reason For Referral No Information Medications Medication [...] Status Risk Notes Problem Irritable bowel syndrome (40347415) Irritable bowel syndrome (K58.9) Active confirmed Plan Of Treatment Future Test Test Name Order Date COLONOSCOPY 10/07/2012 Insurance Providers Payer Name Payer Address Payer Phone Subscriber Number Group Number Insured Name Patient Relationship to Insured Coverage Start Date Coverage End Date MEDICARE OF [place] [address] [place] [address] [phone] [id number] TIERNEY MARTIN Self - patient is the insured [facility] [address] [place] [phone] [id number] TIERNEY MARTIN Self - patient is the insured Medical (General) History Medical History History ICD Code Colonoscopy 05-14-2003--2 sma ll tubular adenomas removed-diverticulosis and internal hemorrhoids Hypertension Hypothyroidism Asthma COPD Denies [place],CVA,renal disease Hyperlipidemia Colonoscopy 11/2012 with a small tubular adenoma removed NIDDM Irritable bowel syndrome that is well co ntrolled on Metamucil Surgical History Surgery Date(Month/Year) Skin cancers/cysts
[2024-12-15 08:35] LABS: Alanine Aminotransferase 18 U/L (0-31); Anion Gap 11 (12-20); Aspartate Amino Transferase 21 U/L (5-31); Blood Urea Nitrogen 23 mg/dL (9-16); Calcium 9.7 mg/dL (8.4-10.2); Carbon Dioxide 25 mmol/L (22-29); Chloride 113 mmol/L (96-108); Cholesterol 158 mg/dL (<200); Estimated Glomerular Filt Rate 54; HDL Cholesterol 67 mg/dL (>40); Potassium 5.3 mmol/L (3.3-5.1); Sodium 144 mmol/L (135-145); Triglycerides 71 mg/dL (<150)
[2024-12-15 09:14] LABS: Free T4 (Free Thyroxine) 1.18 ng/dL (0.71-1.85); Thyroid Stimulating Hormone 0.29 uIU/mL (0.32-4.0)
== END 2024-12-15 06:13 | disposition home or self-care (01) ==
LOC: HO.LAB 06:12
PROVIDERS: PCP Internal Medicine; Visit Provider Internal Medicine
DX: I10 Essential (primary) hypertension (principal); E11.9 Type 2 diabetes mellitus without complications; E78.5 Hyperlipidemia, unspecified; E03.9 Hypothyroidism, unspecified
CPT/HCPCS: 36415; 80048; 80061; 82306; 83036; 84439; 84443; 84450; 84460

== ENCOUNTER 2024-12-20 07:52 | Outpatient (AMB) | payer MEDICARE, OTHER, SELFPAY ==
--- OUTSIDE RECORDS SUMMARY | 2024-12-20 07:57 | XMS_ITS | Clinical Summary ---
Author Organization [facility], Address [address] [place] [address] [place] [address] Phone Care Team Providers Care Pet Adoption Counselor Name Role Phone Darrell Austin MD Primary Care Provider +1- [phone] Allergies Active Allergy Reactions Criticality Noted Date [...] 1 (one) time each day Active Umeclidinium [place] (INCRUSE ELLIPTA IN) Inhale Active aspirin 325 [...] PM EST) Hemoglobin A1C 5.7(H) (4.0-5.6) % [facility] Comment: MONITORING: In known diabetic patients, hemoglobin A1c targets should be discussed with health care provider. DIAGNOSTIC USE: The [place] Diabetes Association (ADA) and the World Health [...] Supplement 1 Testing performed or reported by [facility] [employer], a Service of [facility], [address] [place] [address] Garcia Lagos MD, Commodity Analyst [facility]# [id number] 05/28/2021 4:4 4 PM EST 05/28/2021 4:48 PM EST us David Estrella MD LAB BLOOD ORDERABLES Final Res ult [facility] from Last 3 Months or Most Recently Relevant to Health Maintenance Insurance Medicare [facility] Care Teams Pet Adoption Counselor Relationship Specialty Start Date End Date Darrell Austin MD [facility] [place] [address] PCP - General 01/24/19
--- OUTSIDE RECORDS SUMMARY | 2024-12-20 07:57 | XMS_ITS | Clinical Summary ---
Author Organization 175 [facility] Address [address] [place] [address] Phone Care Team Providers Care Associate Director Of Nursing Name Role Phone Shilpi Austin MD Primary [...] 10:15 AM EDT Office Visit Orthopedic Surgery [facility] [address] [phone] Hany Herbert DPM Acquired hallux valgus of [...] AM EDT Office Visit Orthopedic Surgery - [place] [address] [phone] Hany Herbert, DPM [address] [phone] Health Maintenance Due Date Last Done Comments [...] patient's age to complete this topic Insurance [facility] Care Teams Associate Director Of Nursing Relationship Specialty Start Date End Date Shilpi Austin MD [address] [place] [address] PCP - General 05/20/22
--- OUTSIDE RECORDS SUMMARY | 2024-12-20 07:57 | XMS_ITS | Patient Health Record ---
Author Organization [facility] Address [address] [place] [address] Care Team Providers Care Grading Machine Feeder Name Role Phone Geovanna GIBBONS, Shilpi Primary Care Provider Rod Jackson Unavailable [phone] Allergies Allergen (clinical drug ingredient) Drug/Non Drug [...] Status Risk Notes Problem Irritable bowel syndrome (56672032) Irritable bowel syndrome (K58.9) Active confirmed Plan Of Treatment Future Test Test Name Order Date COLONOSCOPY 10/07/2012 Insurance Providers Payer Name Payer Address Payer Phone Subscriber Number Group Number Insured Name Patient Relationship to Insured Coverage Start Date Coverage End Date MEDICARE OF [place] [address] [place] [address] [id number] TIERNEY MARTIN Self - patient is the insured [facility] [address] [place] [address] [id number] TIERNEY MARTIN Self - patient is the insured Medical (General) History Medical History History ICD Code Colonoscopy 05-14-2003--2 sma ll tubular adenomas removed-diverticulosis and internal hemorrhoids Hypertension Hypothyroidism Asthma COPD Denies [place],CVA,renal disease Hyperlipidemia Colonoscopy 11/2012 with a small tubular adenoma removed NIDDM Irritable bowel syndrome that is well co ntrolled on Metamucil Surgical History Surgery Date(Month/Year) Skin cancers/cysts
--- NOTE | 2024-12-20 08:08 | MHC.PC.OV ---
Vital Signs 12/20/24 08:12 Height 5 ft 2 in Weight 163 lb BMI 29.8 BP 112/60 Blood Pressure Location Rt brachial Position Sitting Respiration 15 Pulse 76 Pulse Source Pulse Oximeter Temp 98.4 F Temp Source Oral Pulse Oximetry (%) 95 Oxygen Delivery Method Room Air Intake Visit Reasons: 6m follow up - see comments Intake Note: Pt is here today for her 6mo. f/u Naphthalene Operator Required: No Allergies bee pollen (bee stings) Allergy (Severe, Verified 12/24/24 22:20) Anaphylaxis levofloxacin (Levaquin) Adverse Reaction (Unknown, Verified 12/24/24 22:20) achilles tendon issue stainless steel Allergy (Unknown, Uncoded 12/24/24 22:20) severe Derm reaction chlorine Adverse Reaction (Uncoded 12/24/24 22:20) Difficulty Breathing Medication List - Last Reconciled 12/24/24 by Shilpi Austin MD aspirin (Adult Low Dose Aspirin) 81 mg PO DAILY atorvastatin 10 mg PO DAILY biotin 10,000 mcg PO DAILY cetirizine (Zyrtec) 10 mg PO DAILY cholecalciferol (vitamin D3) 50 mcg PO DAILY diltiazem HCl CD 180 mg PO QAM flaxseed oil 1,000 mg PO DAILY fluticasone propion-salmeterol 250-50 mcg/dose (Wixela Inhub) 1 inh inhalation BID 30 days fluticasone propionate 50 mcg/actuation (Allergy Relief (fluticasone)) 2 sprays intranasal DAILY 90 days glucosamine sulfate 1,000 mg PO ONCE Incruse Ellipta 62.5 mcg/actuation (umeclidinium) 1 inh PO DAILY NS irbesartan 150 mg PO BEDTIME levothyroxine 100 mcg PO DAILY metformin 1,000 mg PO BID montelukast 10 mg PO DAILY nystatin-triamcinolone 100,000-0.1 unit/g-% 1 appl topical DAILY PRN omega [id number]-fish oil 300-1,000 mg (Fish Oil) 1 cap PO DAILY psyllium husk (Metamucil) 1 tbsp PO DAILY Tobacco use date assessed: 12/20/24 Fall risk assessment: No Falls in past year Last assessed Fall Risk: 12/20/24 Dental Screening Dental Screen Date: 12/20/24 Did you have a dental visit in the last 12 months?: Yes Did you have a dental problem in the last 6 months where you did not have access to dental care?: Yes Was dental information given to patient?: Patient has dentist HPI 6m follow up - see comments HPI Details 84 year-old lady with history of hypertension, dyslipidemia, acquired hypothyroidism ,and type 2 diabetes mellitus presents today for her follow-up visit. She has been feeling well, currently very busy moving residences and taking care of her . She has been feeling well, with no complaints at present time, compliant with taking her medications, but admits to not being very compliant with her diet lately. [facility]LY [facility] Medical History Postmenopausal vaginal bleeding Hammertoe of second toe of right foot Tubular adenoma of colon Dyslipidemia Acquired hypothyroidism Essential hypertension Type 2 diabetes mellitus without complication, without long-term current use of insulin COPD (chronic obstructive pulmonary disease) Allergic rhinitis Surgical History Hx of right cataract extraction History of basal cell carcinoma excision History of colonoscopy Family History Father Cancer of prostate Mother COPD (chronic obstructive pulmonary disease) Polio Smoker Daughter Breast cancer H/O: hysterectomy Paternal Grandmother No problems noted. Brother Cancer of prostate Sister No problems noted. Sister No problems noted. Sister No problems noted. Son No problems noted. Maternal Grandmother No problems noted. Social History Housing: House Are you a primary healthcare recruiter to a significant other at home: No Do you presently have visiting nurse or other home services: No Alcohol intake: current Patient Tobacco Use Status: Never used Tobacco e-Cigarette/Vaping Use: Never Used service: No Current occupational status: retired Cognitive needs: No Hearing needs: No Vision needs: Yes Questionnaire PHQ-9 Over the last 2 weeks, how often have you been bothered by any of the following problems? 1. Little interest or pleasure in doing things: not at all 2. Feeling down, depressed, or hopeless: not at all 3. Trouble falling or staying asleep, or sleeping too much: several days 4. Feeling tired or having little energy: several days 5. Poor appetite or overeating: not at all 6. Feeling bad about yourself - or that you are a failure or have let yourself or your family down: not at all 7. Trouble concentrating on things, such as reading the newspaper or watching television: not at all 8. Moving or speaking so slowly that other people could have noticed. Or the opposite - being so fidgety or restless that you have been moving around a lot more than usual: not at all 9. Thoughts that you would be better off or of hurting yourself in some way: not at all Total score: 2 Depression Screening Interpretation: Negative Depression Screening Done: Yes Source: Developed by Drs. Rod Franz, Shy Velez, Dev Piper and colleagues, with an educational jag from [employer]. Thrive Questionnaire Date Thrive assessed: 06/19/24 I am a: Patient What is your living situation today?: I have a steady place to live Within the past 12 months, did the food you bought not last and you didn't have the money to get more?: Never true Within the past 12 months, did you worry whether your food would run out before you got money to buy more?: Never true Do you have trouble paying for medicines?: No Do you have trouble getting transportation to medical appointments?: No Do you have trouble paying your heating and electricity bill?: No Do you have trouble taking care of your child, family member or friend?: No Do you have trouble with day-to-day activities such as bathing, preparing meals, shopping, managing finances, etc.?: No Are you currently unemployed and looking for a job?: No Are you interested in more education?: No Please select the resources that you would like help with: None Currently or been in a relationship where the following occur: No concerns reported THRIVE Score: 0 AUDIT C Alcohol Use Questionnaire (AUDIT-C) 1. How often do you have a drink containing alcohol?: 4 or more times a week 2. How many drinks containing alcohol do you have on a typical day when you are drinking?: 1 or 2 3. How often do you have six or more drinks on one occasion?: Never Total Score: 4 RICA-7 AMB Questionnaire RICA-7 Date RICA - 7 assessed: 12/21/23 Feeling nervous, anxious, or on edge: 1 = Several days Not being able to stop or control worryin = Several days Worrying too much about different things: 1 = Several days Trouble relaxin = Not at all Being so restless that it is hard to sit still: 0 = Not at all Becoming easily annoyed or irritable: 1 = Several days Feeling afraid as if something awful might happen: 1 = Several days Total RICA-7 score (0-4 normal; 5-9 mild; 10-14 moderate; 15-21 severe): 5 Source: Developed by Drs. Rod Franz, Shy Velez, Dev Piper and colleagues, with an educational jag from [employer]. Review of Systems Const Reports no additional complaints Eyes Denies change in vision and Reports requires corrective lenses ENT Reports no additional complaints Card Denies chest pain, Denies irregular heart rhythm and Denies leg edema Resp Reports no additional complaints GI Reports no additional complaints Reports no additional complaints Musc Reports no additional complaints Skin/Breast Denies breast pain, Denies breast mass and Denies rash Neuro Reports no additional complaints, Denies Abnormal speech present and Denies Sensory deficit (Neuro) Psych Reports no additional complaints Endo Reports no additional complaints Gurwinder/Lymph Denies easy bleeding and Denies easy bruising Aller/Immun Reports no additional complaints Physical exam (Primary Care) Vital Signs: Last Vital Signs Temp 98.4 F 12/20/24 08:12 Pulse 76 12/20/24 08:12 Resp 15 12/20/24 08:12 BP 112/60 12/20/24 08:12 Pulse Ox 95 12/20/24 08:12 Oxygen Delivery Method Room Air 12/20/24 08:12 BMI result Body Mass Index 29.8 Tobacco/Smoking Status: Tobacco use Status Tobacco use date assessed 12/20/24 12/20/24 08:17 Patient Tobacco Use Status Never used Tobacco 12/20/24 08:09 e-Cigarette/Vaping Use Never Used 12/20/24 08:09 PHQ-9: PHQ-9 Score PHQ-9: Total score 2 12/20/24 09:02 Depression Screening Interpretation: Negative Thrive Assessment: Date of Thrive Assessment Date Thrive assessed 06/19/24 12/20/24 08:09 Currently or been in a relationship where the following occur: No concerns reported Const Other: Alert oriented x3, no acute distress noted, ambulatory with normal gait Orientation/consciousness: patient oriented x3 HENOR Head: Yes normocephalic General nose exam: Normal external nose present Face and sinus: Yes face symmetric Mouth: moist mucous membranes Eyes General: appearance normal, both eyes and all related structures Neck Neck: Yes full ROM, Yes no lymphadenopathy and Yes supple Resp Auscultation: clear to auscultation bilaterally Cardio Other: S1-S2 present regular rate and rhythm GI Palpation (GI): Soft to palpation, nontender and no guarding Auscultation: normal bowel sounds General: Yes no CVA tenderness Back/Spine/Pelvis Back: no CVA tenderness and No back tenderness Skin General skin exam: no rashes or lesions noted Neuro General: patient oriented x3, gait normal, tone normal, moves all extremities, no focal motor deficits and CN's II-XI intact bilaterally Speech: No Abnormal speech present Sensory Exam: No Sensory deficit (Neuro) Extrem General: Yes full ROM, Yes no joint enlargement, Yes no clubbing, cyanosis or edema, Yes no calf tenderness and Yes normal gait Right lower extremity: foot (Her hammertoe right 2nd toe, bunion on right) Psych Appearance: grossly normal and well kempt Mental Status: mental status grossly normal Speech and movement: Normal speech and movement present Affect: normal affect Results Reviewed Results Reviewed: Name: Roxane Rogers Age/Sex: 84/F : 1940 Unit#: [id number] Attend Dr: Shilpi Austin MD Re12/15/24 Status: DEP [facility]F [facility] Disch: SPEC : [id number] BERNADETTE: 12/15/24 STATUS: COMP REQ : [id number] RECD: 12/15/[address]: Shilpi Austin MD COMP: 12/15/24 ENTERED: 12/15/[address]: ORDERED: Met Prof Fast, AST, ALT, Lipid Panel, Vitamin D 25-OH, Free T4, TSH Test Result Flag Reference Sodium 144 135-145 mmol/L Potassium 5.3 H 3.3-5.1 mmol/L CL 113 H 96-108 mmol/L CO2 25 22-29 mmol/L Gap 11 L 12-20 BUN 23 H 9-16 mg/dL Creat 0.98 0.5-1.4 mg/dL eGFR 54 Chronic Kidney Disease: Estimated GFR < 60 mL/min/1.73m2 Severe Kidney Disease: Estimated GFR < 15 mL/min/1.73m2 FBS 92 60-99 mg/dL CA 9.7 8.4-10.2 mg/dL AST (GOT) 21 5-31 U/L ALT (GPT) 18 0-31 U/L Triglyceride 71 <150 mg/dL Desirable Triglyceride: less than 150 mg/dL Borderline High Triglyceride 150-199 mg/dL High Triglyceride: 200-499 mg/dL Very High Triglyceride: greater than or equal to 5OO mg/dL Cholesterol 158 <200 mg/dL Desirable Cholesterol: less than 200 mg/dL Borderline High Cholesterol: 200-239 mg/dL High Cholesterol: greater than 239 mg/dL LDL Calculated 77 <100 mg/dL Desirable LDL: less than 100 mg/dL Near Optimal/Above Optimal LDL: 110-129 mg/dL Borderline High LDL: 130-159 mg/dL High LDL: 160-189 mg/dL Very High LDL: greater than or equal to 190 mg/dL HDL 67 >40 mg/dL Desirable HDL: greater than 40 mg/dL Note: This HDL assay may give artificially low results in patients with liver disease. Vitamin D 25-OH 51.7 >30 ng/mL Health Based Reference Values* < 20 ng/mL Deficient 20-30 ng/mL Insufficient > 30 ng/mL Sufficient *Britney DELATORRE. N Engl J Med. 2007;357:266-280 There is no well-established upper level of normal vitamin D levels. Some laboratories use 50 ng/mL as an upper limit of normal. However, toxicity is patient-dependent and may occur at any level. Careful correlation with the patient's presentation is necessary and, if there is concern for vitamin D toxicity, treatment should be considered irrespective of the serum level. Care must be taken in interpreting Vitamin D results from different laboratories and methodologies. Published data demonstrated that results from patients undergoing hemodialysis may show a negative bias when tested with various automated 25-OH vitamin D assays when compared to LC-MS/MS. When testing samples from patients whose predominant form of Vitamin D is Vitamin D2, such as patients receiving Vitamin D2 supplementation, results that are subtherapeutic should be confirmed with another method such as LC-MS/MS. Free T4 1.18 0.71-1.85 ng/dL TSH 3rd Gen. 0.29 L 0.32-4.0 uIU/mL TSH 3rd Generation ([facility]) Name: Roxane Rogers Age/Sex: 84/F : 1940 Unit#: [id number] Attend Dr: Shilpi Austin MD Re12/15/24 Status: DEP REF Location: .[facility] Disch: SPEC : [id number] BERNADETTE: 12/15/24 STATUS: COMP REQ : [id number] RECD: 12/15/[address]: Shilpi Austin MD COMP: 12/15/24 ENTERED: 12/15/[address]: ORDERED: Met Prof Fast, AST, ALT, Lipid Panel, Vitamin D 25-OH, Free T4, TSH Test Result Flag Reference Sodium 144 135-145 mmol/L Potassium 5.3 H 3.3-5.1 mmol/L CL 113 H 96-108 mmol/L CO2 25 22-29 mmol/L Gap 11 L 12-20 BUN 23 H 9-16 mg/dL Creat 0.98 0.5-1.4 mg/dL eGFR 54 Chronic Kidney Disease: Estimated GFR < 60 mL/min/1.73m2 Severe Kidney Disease: Estimated GFR < 15 mL/min/1.73m2 FBS 92 60-99 mg/dL CA 9.7 8.4-10.2 mg/dL AST (GOT) 21 5-31 U/L ALT (GPT) 18 0-31 U/L Triglyceride 71 <150 mg/dL Desirable Triglyceride: less than 150 mg/dL Borderline High Triglyceride 150-199 mg/dL High Triglyceride: 200-499 mg/dL Very High Triglyceride: greater than or equal to 5OO mg/dL Cholesterol 158 <200 mg/dL Desirable Cholesterol: less than 200 mg/dL Borderline High Cholesterol: 200-239 mg/dL High Cholesterol: greater than 239 mg/dL LDL Calculated 77 <100 mg/dL Desirable LDL: less than 100 mg/dL Near Optimal/Above Optimal LDL: 110-129 mg/dL Borderline High LDL: 130-159 mg/dL High LDL: 160-189 mg/dL Very High LDL: greater than or equal to 190 mg/dL HDL 67 >40 mg/dL Desirable HDL: greater than 40 mg/dL Note: This HDL assay may give artificially low results in patients with liver disease. Vitamin D 25-OH 51.7 >30 ng/mL Health Based Reference Values* < 20 ng/mL Deficient 20-30 ng/mL Insufficient > 30 ng/mL Sufficient *Britney DELATORRE. N Engl J Med. 2007;357:266-280 There is no well-established upper level of normal vitamin D levels. Some laboratories use 50 ng/mL as an upper limit of normal. However, toxicity is patient-dependent and may occur at any level. Careful correlation with the patient's presentation is necessary and, if there is concern for vitamin D toxicity, treatment should be considered irrespective of the serum level. Care must be taken in interpreting Vitamin D results from different laboratories and methodologies. Published data demonstrated that results from patients undergoing hemodialysis may show a negative bias when tested with various automated 25-OH vitamin D assays when compared to LC-MS/MS. When testing samples from patients whose predominant form of Vitamin D is Vitamin D2, such as patients receiving Vitamin D2 supplementation, results that are subtherapeutic should be confirmed with another method such as LC-MS/MS. Free T4 1.18 0.71-1.85 ng/dL TSH 3rd Gen. 0.29 L 0.32-4.0 uIU/mL TSH 3rd Generation ([facility]) Coding Level of Care Code Est Pt Level 4 (61780) Complex EM visit Add On G2211 Diagnoses Type 2 diabetes mellitus without complication, without long-term current use of insulin E11.9 Essential hypertension I10 Acquired hypothyroidism E03.9 Dyslipidemia E78.5 Assessment & Plan Assessment & Plan (1) Type 2 diabetes mellitus without complication, without long-term current use of insulin: Code(s): E11.9 - Type 2 diabetes mellitus without complications Category: Medical Plan: Diabetes mellitus well controlled with metformin a 1000 mg taken twice a day latest hemoglobin A1c is at 5.8% (2) Essential hypertension: Code(s): I10 - Essential (primary) hypertension Category: Medical Plan: Blood pressure at goal of less than 130/80. Continue with current medication. Reinforced importance of following a low sodium diet, getting regular exercise, and lowering stress levels. (3) Acquired hypothyroidism: Code(s): E03.9 - Hypothyroidism, unspecified Category: Medical Plan: Thyroid levels are within normal limits, continued on current dose of levothyroxine 100 mcg daily (4) Dyslipidemia: Code(s): E78.5 - Hyperlipidemia, unspecified Category: Medical Plan: Fasting lipids are within normal limits, continued on atorvastatin 10 mg daily Orders: Orders Basic Metabolic Panel Fasting 02/24/25 E03.9 - Hypothyroidism, unspecified, E11.9 - Type 2 diabetes mellitus without complications, E78.5 - Hyperlipidemia, unspecified, I10 - Essential (primary) hypertension Alanine Aminotransferase 02/24/25 E03.9 - Hypothyroidism, unspecified, E11.9 - Type 2 diabetes mellitus without complications, E78.5 - Hyperlipidemia, unspecified, I10 - Essential (primary) hypertension Thyroid Stimulating Hormone 02/24/25 E03.9 - Hypothyroidism, unspecified, E11.9 - Type 2 diabetes mellitus without complications, E78.5 - Hyperlipidemia, unspecified, I10 - Essential (primary) hypertension Free T4 (Free Thyroxine) 02/24/25 E03.9 - Hypothyroidism, unspecified, E11.9 - Type 2 diabetes mellitus without complications, E78.5 - Hyperlipidemia, unspecified, I10 - Essential (primary) hypertension Lipid Panel 02/24/25 E03.9 - Hypothyroidism, unspecified, E11.9 - Type 2 diabetes mellitus without complications, E78.5 - Hyperlipidemia, unspecified, I10 - Essential (primary) hypertension Hemoglobin A1c 02/24/25 E03.9 - Hypothyroidism, unspecified, E11.9 - Type 2 diabetes mellitus without complications, E78.5 - Hyperlipidemia, unspecified, I10 - Essential (primary) hypertension Microalbumin, Random (w Creat) 02/24/25 E03.9 - Hypothyroidism, unspecified, E11.9 - Type 2 diabetes mellitus without complications, E78.5 - Hyperlipidemia, unspecified, I10 - Essential (primary) hypertension Vitamin D 25-OH Total 02/24/25 E03.9 - Hypothyroidism, unspecified, E11.9 - Type 2 diabetes mellitus without complications, E78.5 - Hyperlipidemia, unspecified, I10 - Essential (primary) hypertension Aspartate Amino Transferase 02/24/25 E03.9 - Hypothyroidism, unspecified, E11.9 - Type 2 diabetes mellitus without complications, E78.5 - Hyperlipidemia, unspecified, I10 - Essential (primary) hypertension
[2024-12-20 08:12] VITALS: BP 112/60; PULSE 76; RESP 15; TEMP 36.9; O2SAT 95; BMI 29.8
== END 2024-12-20 09:05 | disposition home or self-care (01) ==
LOC: HO.HMCC 07:53
PROVIDERS: PCP Internal Medicine; Visit Provider Internal Medicine
DX: E11.9 Type 2 diabetes mellitus without complications (principal); I10 Essential (primary) hypertension; E03.9 Hypothyroidism, unspecified; E78.5 Hyperlipidemia, unspecified

== ENCOUNTER → 2024-12-20 07:52 | Outpatient (BNVA) | payer MEDICARE, OTHER, SELFPAY | PROVIDERS: PCP Internal Medicine; Visit Provider Internal Medicine | DX: I10 Essential (primary) hypertension (principal); E78.5 Hyperlipidemia, unspecified; E03.9 Hypothyroidism, unspecified; E11.9 Type 2 diabetes mellitus without complications | CPT/HCPCS: 96127; 99212 ==

== ENCOUNTER 2025-01-09 10:47 | Outpatient (AMB) | payer MEDICARE, OTHER, SELFPAY ==
--- NOTE | 2025-01-09 11:00 | A.OFFVIS_ITS ---
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 Required: No Allergies bee pollen (bee stings) Allergy (Severe, Verified 01/09/25 11:07) Anaphylaxis levofloxacin (Levaquin) Adverse Reaction (Unknown, Verified 01/09/25 11:07) achilles tendon issue stainless steel Allergy (Unknown, Uncoded 01/09/25 11:07) severe Derm reaction chlorine Adverse Reaction (Uncoded 01/09/25 11:07) Difficulty Breathing Medication List - Last Reconciled 01/09/25 by Anam Gibson MD aspirin (Adult Low Dose Aspirin) 81 mg PO DAILY atorvastatin 10 mg PO DAILY biotin 10,000 mcg PO DAILY cetirizine (Zyrtec) 10 mg PO DAILY cholecalciferol (vitamin D3) 50 mcg PO DAILY diltiazem HCl CD 180 mg PO QAM flaxseed oil 1,000 mg PO DAILY fluticasone propion-salmeterol 250-50 mcg/dose (Wixela Inhub) 1 inh inhalation BID 30 days fluticasone propionate 50 mcg/actuation (Allergy Relief (fluticasone)) 2 sprays intranasal DAILY 90 days glucosamine sulfate 1,000 mg PO ONCE Incruse Ellipta 62.5 mcg/actuation (umeclidinium) 1 inh PO DAILY NS irbesartan 150 mg PO BEDTIME levothyroxine 100 mcg PO DAILY metformin 1,000 mg PO BID montelukast 10 mg PO DAILY nystatin-triamcinolone 100,000-0.1 unit/g-% 1 appl topical DAILY PRN omega 9-osh-ojd-fish oil 300-1,000 mg (Fish Oil) 1 cap PO DAILY psyllium husk (Metamucil) 1 tbsp PO DAILY Do you need a note to return to daycare/school/sports/work: No HPI HPI COPD: Details: TIERNEY Durham , NOW 84 YEARS OLD , COMES FOR FOLLOW-UP FOR HER COPD/ALLERGIC RHINITIS., AFTER 6 MONTHS SHE HAS BEEN DOING WELL WITHOUT ANY ACUTE EXACERBATION. SHE REMAINS VERY ACTIVE WITH LOT OF ACTIVITIES . SHE AND HER HAVE NOW MOVED INTO [facility], AND GETTING. USED TO THE NEW PLACE . HER FELICITA, IS BEING TREATED FOR BLADDER CANCER , AND HAS IMPAIRED MOBILITY, SO THEY COULD NOT LIVE IN THEIR OLD HOUSE. [facility] Medical History Postmenopausal vaginal bleeding Hammertoe of second toe of right foot Tubular adenoma of colon Dyslipidemia Acquired hypothyroidism Essential hypertension Type 2 diabetes mellitus without complication, without long-term current use of insulin COPD (chronic obstructive pulmonary disease) Allergic rhinitis Surgical History Hx of right cataract extraction History of basal cell carcinoma excision History of colonoscopy Family History Father Cancer of prostate Mother COPD (chronic obstructive pulmonary disease) Polio Smoker Daughter Breast cancer H/O: hysterectomy Paternal Grandmother No problems noted. Brother Cancer of prostate Sister No problems noted. Sister No problems noted. Sister No problems noted. Son No problems noted. Maternal Grandmother No problems noted. Social History Housing: House Are you a primary adult live in caregiver to a significant other at home: No Do you presently have visiting nurse or other home services: No Alcohol intake: current Patient Tobacco Use Status: Never used Tobacco e-Cigarette/Vaping Use: Never Used service: No Current occupational status: retired Cognitive needs: No Hearing needs: No Vision needs: Yes Review of Systems Const All systems reviewed & are unremarkable except as noted in HPI and below Eyes Reports no additional complaints ENT Reports nasal congestion and Reports nasal discharge (Off and on) Card Denies chest pain, Denies irregular heart rhythm and Denies leg edema Resp Reports as per HPI GI Reports no additional complaints Reports no additional complaints Musc Reports no additional complaints Skin/Breast Reports system reviewed and no additional complaints, except as documented Neuro Reports no additional complaints Psych Reports no additional complaints Physical Exam Vital Signs: Last Vital Signs Pulse 61 01/09/25 11:01 BP 120/70 01/09/25 11:01 Pulse Ox 97 01/09/25 11:01 Oxygen Delivery Method Room Air 01/09/25 11:01 BMI result Body Mass Index 29.1 Const General: comfortable, no acute distress, alert and awake Orientation/consciousness: patient oriented x3 HEENT Head: Yes normal to inspection General nose exam: No nasal polyps present, No nasal discharge present and Other nasal findings present (Mild nasal congestion) Face and sinus: Yes sinuses nontender Mouth: oropharynx normal (No thrush noted at this time) Throat: Yes posterior oropharynx normal Eyes General: appearance normal, both eyes and all related structures Neck Neck: Yes normal visual inspection, Yes no lymphadenopathy, Yes trachea midline and Yes no JVD Thyroid: Thyroid normal Chest Chest palpation & inspection: normal inspection of the chest, normal palpation of entire chest wall and no tenderness Resp Other: Percussion note resonant, breath sounds are equal on both sides is moderately distant with prolonged expiratory phase. No wheezes rhonchi or crepitations are heard. Cardio Palpation: normal PMI Rate: regular rate Rhythm: regular rhythm Heart sounds: no gallops and no murmurs GI Palpation (GI): Soft to palpation, nontender, No hepatosplenomegaly present and no masses Auscultation: normal bowel sounds Back/Spine/Pelvis Thoracic/Lumbar Spine: thoracic and lumbar spine normal to inspection Skin General skin exam: no rashes or lesions noted Neuro General: patient oriented x3 and no focal motor deficits Cranial nerves: Yes CN's II-XII intact bilaterally Extrem General: Yes normal to inspection, Yes no clubbing, cyanosis or edema and Yes no calf tenderness Psych Appearance: grossly normal and well kempt Speech and movement: Normal speech and movement present Assessment & Plan Assessment & Plan (1) COPD (chronic obstructive pulmonary disease): Comment: 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 Has remained very Stable and controlled . Spirometry, ON HER LAST VISIT WAS STABLE COMPARED TO PREVIOUS TESTS. Luckily she has had no infection or exacerbation. Code(s): J44.9 - Chronic obstructive pulmonary disease, unspecified Category: Medical Plan: Continue Wixela 250-51 inhalation b.i.d. And Incruse Ellipta 1 inhalation daily Albuterol HFA 2 puffs Q 6 hours p.r.n.. (2) Allergic rhinitis: Comment: Seasonal , Stable , and controlled. No acute flare ups. Code(s): J30.9 - Allergic rhinitis, unspecified Category: Medical Plan: Flonase-50 2 spray each nostril daily, Montelukast 10 mg daily. Coding Level of Care Code Est Pt Level 3 (47615) Diagnoses COPD (chronic obstructive pulmonary disease) J44.9 Allergic rhinitis J30.9
[2025-01-09 11:01] VITALS: BP 120/70; PULSE 61; O2SAT 97; BMI 29.1
--- OUTSIDE RECORDS SUMMARY | 2025-01-09 13:10 | XMS_ITS | Clinical Summary ---
Author Organization [facility], Address [address] [place] [address] [place] [address] Phone Care Team Providers Care Car Sales Associate Name Role Phone Darrell Austin MD Primary Care Provider [phone] Allergies Active Allergy Reactions Criticality Noted Date [...] 1 (one) time each day Active Umeclidinium [place] (INCRUSE ELLIPTA IN) Inhale Active aspirin 325 [...] PM EST) Hemoglobin A1C 5.7(H) (4.0-5.6) % [facility] Comment: MONITORING: In known diabetic patients, hemoglobin A1c targets should be discussed with health care provider. DIAGNOSTIC USE: The [place] Diabetes [employer] (ADA) and the World Health [...] Supplement 1 Testing performed or reported by [facility], a Service of [facility], [address] [place] [address] Garcia Lagos MD, Supervising Deputy [facility]# [id number] 05/28/2021 4:44 PM EST 05/28/2021 4:48 PM EST us David Estrella MD LAB BLOOD ORDERABLES Final Res ult [facility] from Last 3 Months or Most Recently Relevant to Health Maintenance Insurance Medicare [facility] Care Teams Car Sales Associate Relationship Specialty Start Date End Date Darrell Austin MD [facility] [place] [address] PCP - General 01/24/19
--- OUTSIDE RECORDS SUMMARY | 2025-01-09 13:10 | XMS_ITS | Patient Health Record ---
Author Organization [facility] Address [address] [place] [address] Care Team Providers Care Golf Cart Assembler Name Role Phone Geovanna GIBBONS, Shilpi Primary Care Provider Rod Jackson Unavailable [phone] Allergies Allergen (clinical drug ingredient) Drug/Non Drug [...] in am Active Montelukast Sodium 10 MG Oral; Duration: 90 Active Atorvastatin Calcium 10 MG Oral; Duration: 90 Active Vitamin D3 5000iu Ac tive Symbicort 80-4.5 MCG/ACT Inhalation; Duration: 90 Active Biotin Active Irbesartan 150 MG Oral; Duration: 90 Active Aspirin 325 MG 1 tablet Orally Once a day; Duration: 30 day(s) Active Cetirizine HCl 10 MG 1 tablet Orally Onc e a day Active metFORMIN HCl 1000 MG Oral; Duration: 90 Active Fish Oil Active dilTIAZem HCl ER Coated Beads 180 MG Oral; Duration: 90 Active Flaxseed Oil Active Incruse Ellipta 62.5 MCG/INH Inhalation; Duration: 90 Act vickie Metamucil Active Synthroid 100 MCG Oral; Duration: 90 Active Immunizations Vaccine Route Administration Date Status Comme nts Influenza Unknown 12/20/2020 Administered Problems Problem Type SNOMED Code ICD Code Onset Dates Problem Status W/U Status Risk Notes Problem Irritable bowel syndrome (06467370) Irritable bowel syndrome (K58.9) Active confirmed Plan Of Treatment Future Test Test Name Order Date COLONOSCOPY 10/07/2012 Insurance Providers Payer Name Payer Address Payer Phone Subscriber Number Group Number Insured Name Patient Relationship to Insured Coverage Start Date Coverage End Date MEDICARE OF [place] [address] [place] [address] [id number] TIERNEY MARTIN Self - patient is the insured [facility] [address] [place] [address] [id number] TIERNEY MARTIN Self - patient is the insured Medical (General) History Medical History History ICD Code Colonoscopy 05-14-2003--2 sma ll tubular adenomas removed-diverticulosis and internal hemorrhoids Hypertension Hypothyroidism Asthma COPD Denies [place],CVA,renal disease Hyperlipidemia Colonoscopy 11/2012 with a small tubular adenoma removed NIDDM Irritable bowel syndrome that is well co ntrolled on Metamucil Surgical History Surgery Date(Month/Year) Skin cancers/cysts
== END 2025-01-09 11:29 | disposition home or self-care (01) ==
LOC: HO.HPS 10:49
PROVIDERS: PCP Internal Medicine; Visit Provider Internal Medicine
DX: J44.9 Chronic obstructive pulmonary disease, unspecified (principal); J30.9 Allergic rhinitis, unspecified
CPT/HCPCS: 99213

== ENCOUNTER → 2025-01-09 10:47 | Outpatient (BNVA) | payer MEDICARE, OTHER, SELFPAY | PROVIDERS: PCP Internal Medicine; Visit Provider Internal Medicine | DX: J44.9 Chronic obstructive pulmonary disease, unspecified (principal) | CPT/HCPCS: 99212 ==

== ENCOUNTER 2025-02-01 14:29 | Outpatient (RCR) | payer MEDICARE, OTHER, SELFPAY ==
--- NOTE | 2024-11-28 13:06 | MHC.PT.EP ---
[place] Office [place] Office [place] Office [address] [place] [address] [phone] F: [phone] F: [phone] F: [phone] F: [phone] Physical Therapy Plan of Care Date of Evaluation: 11/28/24 Date of Surgery: n/a Diagnosis: Unilateral primary osteoarthritis, right knee Assessment: Pt is a pleasant and motivated 84yo F who presents to PT with R knee pain. She presents to PT with current impairments in pain, decreased ROM, decreased strength, decreased balance, and impaired gait. She is limited functionally by stair navigation, prolonged standing, prolonged walking, and prolonged sitting. She is an excellent candidate for skilled PT in order to address current impairments to facilitate return to PLOF. She is recommended to be seen 2x/week for 4 weeks and will be reassessed at that time Frequency and Duration: The patient will be seen 2x/week for 4 weeks Short Term Goals: Pt will be I with HEP to promote self management of symptoms Pt will improve R knee extension strength to 4+/5 Senior Care Goals: Pt will achieve full ROM and strength all planes of right knee to assist with prolonged standing and walking Pt will tolerate prolonged sitting > 1 hour with minimal to no pain Pt will ascend/descend 1 flight of stairs with reciprocal pattern with minimal to no pain Treatment Plan: Modalities to reduce pain, spasms and effusion. Manual therapy to restore motion and function. Therapeutic exercise to improve strength and flexibility. Neuromuscular re-education for posture and balance. Therapeutic activities to return to functional activities of daily living. Electronically signed by: Lashawn Kraft, PT, DPT Please sign and return to therapist. Thank you for your referral.
--- NOTE | 2025-02-05 08:33 | MHC.PT.DC ---
[facility] [place] Office [place] Office [place] Office [address] [place] [address] [phone] F: [phone] F: [phone] F: [phone] F: [phone] Physical Therapy Discharge Report Diagnosis: Unilateral primary osteoarthritis, right knee Date of Surgery: n/a Date of Evaluation: 11/28/24 Date of Discharge: 02/05/25 Treatments to Date: 12 Cancellations to Date: No Shows to Date: Discharge Status: Improved Function Independent with HEP Discharge Summary: Pt was seen for skilled PT from 11/28/24-02/01/25. She scored a 53/80 on LEFI outcome measure at last attended appointment. She was D/C to HEP at last attended and scheduled appointment. Please see assessment from last PT treatment note by Wil below: The patient overall reported fair improvement with physical therapy intervention. She is independent with her home exercise program. She was given the opportunity to ask questions and all were answered to the best of my ability. The patient was encouraged to continue with her strengthening and mobility as well as seeking out options for cardio with an exercise bike. The patient is discharged from this physical therapy plan of care at this time. Electronically signed by: Lashawn De La Cruz, PT, DPT Please sign and return to therapist. Thank you for your referral.
== END 2025-02-05 08:33 | disposition home or self-care (01) ==
LOC: HO.PT 14:29
PROVIDERS: PCP Internal Medicine; Visit Provider Internal Medicine
DX: M17.11 Unilateral primary osteoarthritis, right knee (principal)
CPT/HCPCS: 97110; 97140; 97162